=== PATIENT | female | born 1955 | race Caucasian/White ===

== ENCOUNTER → 2016-08-04 | Outpatient (CLI) | payer OTHER ==
[~2016-08-04] MED LIST: COLACE100 MG PO; COZAAR 50 MG TA50 M2 PO; CYCLOBENZAPRINE5 MG PO; DICLOFENAC SOD50 M1 PO; DOXYCYCLINE 10100 MG PO; EFFEXOR XR75 MG PO; EFFEXOR50 MG PO; EFFEXOR75 MG PO; HTN; HYDROCODONE-AP1 EAC6 PO; HYDROCODONE-APA1 TA1 PO; KEFLEX500 MG PO; KLOR-CON 1010 MEQ; NAPROSYN500 MG PO; NORCO 5-325 TA1 EACH PO; NORVASC 5 MG TAB5 MG PO; OXYCODONE HCL5 M1 PO; PERCOCET 5-3251 EACH PO; PHENERGAN 25 MG25 M1; PHENERGAN 25 MG25 M1 PO; POTASSIUM20 PO; PROMS25 WY RECTAL; SENNA8.6 MG PO; TYLENOL325 MG PO; VITAMIN D31000 UNI2 PO; VITAMIN D3400 UNIT PO; [UNRECOGNIZED DRUG - OTHER] FLUSH
== END ==
LOC: HYPER 07:01
DX: T81.89XD Other complications of procedures, not elsewhere classified, subsequent encounter (principal); E66.01 Morbid (severe) obesity due to excess calories; M19.90 Unspecified osteoarthritis, unspecified site; Z85.43 Personal history of malignant neoplasm of ovary; Z90.710 Acquired absence of both cervix and uterus; Y83.8 Other surgical procedures as the cause of abnormal reaction of the patient, or of later complication, without mention of misadventure at the time of the procedure

== ENCOUNTER 2018-09-30 08:56 | Inpatient (IN) | payer OTHER ==
[~2018-09-30] VITALS: Ht 172.7 cm; Wt 121.7 kg
[2018-09-30 08:58] VITALS: BP 101/58
[2018-09-30 09:28] LABS: ABSOLUTE NEUTROPHILS 9.1 thou/uL (1.4-8.2); BASOPHILS 0.6 % (0.0-2.0); EOSINOPHILS 1.6 % (0.0-3.0); HEMATOCRIT 44.2 % (37.0-47.0); HEMOGLOBIN 15.1 gm/dL (12.0-15.0); LYMPHOCYTES 17.8 % (24.0-44.0); MCH 32.5 pg (26.0-34.0); MCHC 34.3 g/dL (28.0-37.0); MCV 94.9 fL (80.0-100.0); MONOCYTES 8.9 % (1.0-8.0); PLATELET COUNT 373 thou/uL (150-400); POLYS 71.1 % (36.0-66.0); RBC 4.66 mil/uL (4.20-5.00); RDW 12.8 % (10.5-14.5); WBC 12.8 thou/uL (4.0-11.0)
[2018-09-30 09:47] LABS: CALCIUM 9.6 mg/dL (8.5-10.1); CREATININE 0.9 mg/dL (0.6-1.0); POTASSIUM 3.5 mmol/L (3.5-5.1)
[2018-09-30 09:53] LABS: ALBUMIN 3.3 g/dL (3.4-5.0); TOTAL BILIRUBIN 0.5 mg/dL (<0.1-1.0); TOTAL PROTEIN 8.6 g/dL (6.4-8.2)
[2018-09-30 12:10] VITALS: BP 105/60
[2018-09-30 13:19] VITALS: BP 97/47
[2018-09-30] MEDS ORDERED: NORVASC10 MG PO (15:48)
[2018-09-30] MEDS ORDERED: EFFEXOR 5050 MG/1 T1 PO (15:50)
[2018-09-30] MEDS ORDERED: NEBUMETONE PO (15:52)
[2018-09-30] MEDS ORDERED: LYRICA 50 MG50 MG PO (15:53)
[2018-09-30] MEDS ORDERED: PHENTERMINE HCL15 MG PO (15:53)
[2018-09-30] MEDS ORDERED: METFORMIN HCL500 MG PO (15:54)
--- NOTE | 2018-09-30 16:24 | NUR ---
pt arrived to unit from emergency room per cart at 1400 in stable condition. Admission hx,assessment and care plan completed.Med rec done and waiting for Dr Comer approval.Piv infiltrated and iv team replaced it. Will continue to monitor.
[2018-09-30 16:55] VITALS: BP 108/53
[2018-09-30 21:00] VITALS: BP 111/62
--- NOTE | 2018-10-01 04:06 | NUR ---
ASSESSMENT COMPLETD.PT C/O PAIN AND HEADACHE,MANAGED WITH MEDICATION.PT CONT ON IVF AND IV ABX.PT HAD TWO EPISODES OF NAUSEA,MED ADMINISTERED,EFFECTIVE.UA OBTAINED FROM PT AND SENT DOWN TO THE LAB.PT RESTING ON HER BED AT THIS TIME. CALL LIGHT WITHIN REACH.
[2018-10-01 05:16] LABS: URINE BILIRUBIN NEGATIVE (Negative); URINE BLOOD NEGATIVE (Negative); URINE CLARITY CLEAR; URINE COLOR YELLOW; URINE GLUCOSE-RANDOM* NEGATIVE (Negative); URINE KETONES NEGATIVE (Negative); URINE LEUKOCYTES-REFLEX NEGATIVE (Negative); URINE NITRITE-REFLEX NEGATIVE (Negative); URINE PROTEIN (DIPSTICK) NEGATIVE (Negative); URINE SPECIFIC GRAVITY 1.015 (1.005-1.035); URINE UROBILINOGEN 0.2 E.U./dl (0.2-1.0)
[2018-10-01 05:24] LABS: HEMATOCRIT 36.3 % (37.0-47.0); MCH 32.1 pg (26.0-34.0); MCHC 33.7 g/dL (28.0-37.0); MCV 95.3 fL (80.0-100.0); RBC 3.81 mil/uL (4.20-5.00); RDW 12.6 % (10.5-14.5); WBC 8.6 thou/uL (4.0-11.0)
[2018-10-01 05:28] LABS: CALCIUM 8.6 mg/dL (8.5-10.1); CREATININE 0.7 mg/dL (0.6-1.0); POTASSIUM 3.4 mmol/L (3.5-5.1)
[2018-10-01 05:31] LABS: HEMOGLOBIN 12.2 gm/dL (12.0-15.0)
[2018-10-01 05:56] VITALS: BP 106/59
[2018-10-01 08:27] VITALS: BP 95/56
--- NOTE | 2018-10-01 12:11 | NUR ---
ASSESSMENT-PT LIVES AT HOME WITH HER SON. PT WALKS ON HER OWN, USES A CANE OR A WALKER TO GET AROUND. PT HAS A C-PAP AT HOME BUT DOES NOT KNOW WHAT COMPANY SUPPLIES IT. PT HAS HAD CHCS IN THE PAST BUT DOES NOT WANT TO USE THEM AGAIN. PT HAS A RAMP TO ENTER THE HOME. PT'S SON WORK NIGHTS AT [employer] AND HAS [employer] AND DOES NOT DRIVE. PT DRIVES HIM TO WORK. LAUNDRY IS LOCATED IN [place] AND SON DOES IT. SON DOES MOST OF THE CLEANING ND PT DOES MOST OF THE COOKING. PT HAS MULTIPLE FRIENDS THAT LIVE CLOSE TO HER ND WILL BE ABLE TO CHECK ON HER. PT HAS A BROTHER AND FADI IN [place]. PT HAD A DRAIN PLACED TODAY. FOLLOWING TO ASSSIT WITH DC PLANNING.
--- NOTE | 2018-10-01 14:42 | NUR ---
PATIENT TRANSFERED TO [facility] AT THIS TIME. ROOM 224. REPORT GIVEN TO NURSE. PATIENTS BELONGINGS PACKED AND SENT WITH PATIENT. PT GIVEN 2:00 FLEXIRIL AND PRN IV PAIN MED. ALSO GIVEN ALL HER AM MEDS INCLUDING EXCEDRIN EXTRA STRENGTH PRN FOR HEADACHE ALSO VIT B 12 THAT SHE HAD THIS NURSE CALL DR MARTIN FOR. DILUADID IV PRN PAIN MED GIVEN BEFORE TRANSFER. SENIOR SUITES NURSE TO CALL FOR PHENEGAN. PT STATES HAS NAUSEA. VOLUNTEER TRANSFERRED PATIENT.
--- NOTE | 2018-10-01 14:59 | NUR ---
PATIENT TRANSFERRED FROM 427 TO SICU 224 AT THIS TIME, PATIENT AMBULATORY WITHOUT DEVICE, C/O PAIN AND DISCOMFORT 05/02, PATIENT RECEIVED PRN DILAUDID 0.5MG IV PUSH AT 1419 PRIOR TO TRANSFER, PATIENT C/O OF N/V WITHOUT EMESIS AT THIS TIME, PHYSICIAN DC NAUSEA MEDICATIONS PRIOR TO TRANSFER, NURSE TO CONTACT PHYSICAIN, PERSONAL BELONGINGS AND CALL LIGHT IN REACH, WILL CONTINUE TO MONITOR
--- NOTE | 2018-10-01 18:14 | NUR ---
AT 1802 RECEIVED CALL FROM LAB WITH CRITICAL LAB, BLOOD CULTURE GRAM POSITIVE COCCI, AT 1807 NURSE REPORTED CRITICAL LAB RESULT TO PHYSICIAN, NO NEW ORDERS RECEIVED, PHYSICIAN STATED WE ARE COVERED FOR THAT
[2018-10-01 18:45] VITALS: BP 119/58
--- NOTE | 2018-10-02 04:17 | NUR ---
Patient remains A&Ox4; Swallows meds whole w/o difficulty. Remains cont. B&B. Ambulates independently w/ asst of walker; gait steady. Remains on IVABT/abd. abscess; no adverse reactions noted. SL noted to L wrist; infusing/flushing w/o difficulty. Drain noted to RUQ of abd; draining red drainage w/o difficulty. Patient denies pain or discomfort, at this time. No s/s of acute distress noted. Patient in bed asleep w/ call light/desired belongings within reach. Po fluids encouraged. Will continue to monitor.
[2018-10-02 06:46] LABS: ABSOLUTE NEUTROPHILS 4.9 thou/uL (1.4-8.2); BASOPHILS 0.8 % (0.0-2.0); EOSINOPHILS 5.2 % (0.0-3.0); HEMATOCRIT 35.5 % (37.0-47.0); HEMOGLOBIN 11.9 gm/dL (12.0-15.0); LYMPHOCYTES 23.3 % (24.0-44.0); MCH 32.2 pg (26.0-34.0); MCHC 33.3 g/dL (28.0-37.0); MCV 96.4 fL (80.0-100.0); MONOCYTES 9.1 % (1.0-8.0); PLATELET COUNT 309 thou/uL (150-400); POLYS 61.6 % (36.0-66.0); RBC 3.68 mil/uL (4.20-5.00); RDW 12.6 % (10.5-14.5); WBC 7.9 thou/uL (4.0-11.0)
[2018-10-02 06:57] LABS: CALCIUM 8.5 mg/dL (8.5-10.1); CREATININE 0.7 mg/dL (0.6-1.0); POTASSIUM 4.4 mmol/L (3.5-5.1)
--- NOTE | 2018-10-02 07:10 | H ---
[facility] [address] [place] [address] HISTORY AND PHYSICAL Name: LAURA CROFT Room #: 224-P ADM IN M.R.#: [id number] Admission: 09/30/18 ������������������ Attend Phys: Marcus Comer MD Discharge: ������������������ Date of : 53 Report #: [id number] THIS REPORT FOR: //name// CC: Marcus Schroeder HISTORY OF PRESENT ILLNESS: The patient is a 63-year-old female who came to the Emergency Room with a complaint of a mass on the left upper abdominal wall that started to show up few days ago. The patient indicated that this mass was painful. The patient is known to have a history of abdominal wall abscesses and had a drain of the abscess done years ago and she did not have any problem since then. The patient stated she did not have any fever or chills. She did not have any nausea or vomiting or changes in her bowels. The patient came to the Emergency Room where she had an ultrasound that showed the presence of a fluid collection in the abdominal wall. It was planned for the patient to be admitted to the hospital for abscess of the abdominal wall with the plan for drainage of this today. PAST MEDICAL HISTORY: Significant for ovarian cancer that was diagnosed in 2007. The patient had previous history of hysterectomy and oophorectomy. The patient had 11 surgeries between 2007 and 2013 for hernia repair and repair. The patient had 3 wounds in the past that required wound VAC. The patient had a history of cholecystectomy and appendectomy, chronic back pain, osteoarthritis of the right knee, morbid obesity and hypertension. MEDICATIONS: The patient's medications were reviewed. ALLERGIES: LISINOPRIL. SOCIAL HISTORY: The patient lives with her son. She denies any history of smoking, alcohol use or drug use. FAMILY HISTORY: Noncontributory. REVIEW OF SYSTEMS: Negative besides what was mentioned above, in addition to the presence of headache. PHYSICAL EXAMINATION: VITAL SIGNS: Showed a temperature of 97.4, pulse 102, respirations 16, blood pressure 105/58. HEAD AND NECK: Unremarkable. LUNGS: Clear to auscultation. CARDIAC: S1, S2. ABDOMEN: Showed mass filling the abdominal wall on the left upper quadrant that is painful. No bowel sounds were positive. EXTREMITIES: Without any edema. [address] [address] HISTORY AND PHYSICAL Name: LAURA CROFT Room #: 224-P [facility] IN ..#: [id number] Admission: 09/30/18 ������������������ Attend Phys: Marcus Comer MD Discharge: ������������������ Date of : 53 Report #: [id number] LABORATORY DATA: The patient's lab showed white count of 12.8, hemoglobin 15.1, hematocrit 44.2, platelet count 373, neutrophils are 71%. Comprehensive metabolic panel showed sodium of 135, potassium 3.5, chloride 96, bicarbonate 30, BUN 20, creatinine 0.9 and glucose 118. AST is 12, lipase 67, alkaline phosphatase 125, ALT 20, total protein 8.6, albumin 3.3. CT of the abdomen and pelvis showed the abdominal wall soft tissue abscess within the left of the abdominal rectus muscularis and fascia measuring 4.5 x 5.5 cm, lactic acid is 0.8. Urinalysis was unremarkable. Repeated blood tests showed white count of 8.6, hemoglobin 12.2, hematocrit 36.3, platelet count 306. Basic metabolic panel showed sodium of 138, potassium 3.4, chloride 99, bicarbonate 34, anion gap of 5, BUN 18, creatinine 0.7, glucose 137. ASSESSMENT AND PLAN: 1. Abdominal wall abscess. 2. Hypertension. 3. Morbid obesity. 4. Chronic back pain. The patient was admitted to the hospital with the above-mentioned diagnoses. The patient was started on broad-spectrum antibiotics and I will start the patient on Excedrin Migraine for her headaches. The patient will be started on IV fluids. We will check patient's hemoglobin A1c. We will continue to monitor the patient. ��������������������������������������������� <ELECTRONICALLY SIGNED> ���������������������������������������� By: Marcus Comer MD ��������������������������������������������� 10/02/18 0710 [id number] Marcus Comer MD /nt
[2018-10-02 08:16] VITALS: BP 102/50
--- NOTE | 2018-10-02 10:26 | NUR ---
Assess due to RD consult received, BMI of 40.8=extreme class III obesity. Admit with abdominal wall abscess. Pt c/o HOGUE this am, but was able to relate has had intentional wt loss 100 lb by reducing added sugars, and elimating animal products beef, fish, poulty from diet. Eats eggs, cheese, milk. BG controlled. Will order own meals. Wants glucerna shakes-will order. Otherwise low nutrition risk
--- NOTE | 2018-10-02 10:42 | NUR ---
SW reviewed chart and spoke with nursing. Pt [facility] and is progressing towards goals for discharge. Plan is for pt to discharge home when medically stable. KING is following to assist as needed with discharge planning.
--- NOTE | 2018-10-02 13:32 | NUR ---
ASSUMED CARE OF PATIENT THIS MORNING. PATIENT IS ALERT WITH SOME FORGETFULNESS. SHE HAS A NEW LEFT FOREARM IV W/ FLUIDS AND ANTIBIOTICS RUNNING. PATIENT COMPLAINED OF PAIN THIS MORNING AND RECEIVED DILAUDID WITH PARTIAL PAIN RELIEF. SHE ALSO RECEIVED EXCEDRIN FOR HEADACHE. PATIENT HAS A LEFT ABDOMINAL SITE DRAIN THAT IS C/D/I AND HAS SANGUINEOUS DRAINAGE. SHE GETS UP WITH SBA AND WALKER. WILL CONTACT THE PHYSICIAN TO REQUEST SOMETHING FOR THE PATIENT TO HAVE A BOWEL MOVEMENT. PATIENT IS CURRENTLY LYING IN BED WITH CALL LIGHT WITHIN REACH. SHE CALLS OUT APPROPRIATELY FOR ASSISTANCE. WILL CONTINUE TO ASSESS PATIENT FOR PAIN.
[2018-10-02 19:38] VITALS: BP 115/63
--- NOTE | 2018-10-03 04:32 | NUR ---
Patient remains A&Ox4; Swallows meds whole w/o difficulty. Remains cont. B&B; Ambulates independently w/ steady gait. Remains on IVABT/R abd. abscess; no adverse reactions noted. Drain noted/intact to RUQ; draining red liquid w/o difficulty. ABD soft/nontender and BS+x4. LFA SL noted; infused/flushed w/o difficulty. Patient has no c/o pain or discomfort, at this time. No s/s of acute distress noted. Patient in bed asleep, w/ call light/desired belongings within reach. Po fluids encouraged. Will continue to monitor.
[2018-10-03 07:19] LABS: ABSOLUTE NEUTROPHILS 3.8 thou/uL (1.4-8.2); EOSINOPHILS 5.2 % (0.0-3.0); HEMATOCRIT 36.1 % (37.0-47.0); LYMPHOCYTES 28.1 % (24.0-44.0); MCH 32.1 pg (26.0-34.0); MCHC 33.2 g/dL (28.0-37.0); MCV 96.6 fL (80.0-100.0); MONOCYTES 9.1 % (1.0-8.0); PLATELET COUNT 334 thou/uL (150-400); POLYS 56.6 % (36.0-66.0); RBC 3.73 mil/uL (4.20-5.00); RDW 12.8 % (10.5-14.5); WBC 6.8 thou/uL (4.0-11.0)
[2018-10-03 07:35] LABS: CALCIUM 8.9 mg/dL (8.5-10.1); CREATININE 0.7 mg/dL (0.6-1.0); POTASSIUM 4.7 mmol/L (3.5-5.1)
--- NOTE | 2018-10-03 09:54 | NUR ---
ASSUMED PATIENT AND CARES AT 0715, PATIENT WOKE LYING IN BED, LAB DRAWING BLOOD AT THIS TIME, LEFT FOREARM INTACT WITH FLUIDS INFUSING, PATIENT RECEIVED PRN DILAUDID APPROX 0640, PATIENT STATES PAIN IS MUCH BETTER NOW 03/02, PAIN PRIOR WAS 05/02, PERSONAL BELONGINGS AND CALL LIGHT IN REACH, WILL CONTINUE TO MONITOR
--- NOTE | 2018-10-03 14:34 | NUR ---
SW reviewed chart and spoke with nursing. Awaiting cultures at this time. Pt has drain in place and remains on IV abx. Plan is for pt to d/c home when medically stable. KING is following to assist as needed with discharge planning.
--- NOTE | 2018-10-03 18:08 | NUR ---
ASSUMED CARE OF PATIENT AT 11;30. PT C/O PAIN, ADDRESSED WITH PAIN MEDS WHICH OFFERED PARTIAL RELIEF. PT RESTING, WILL CONTINUE TO MONITOR.
[2018-10-03 20:22] VITALS: BP 120/64
--- NOTE | 2018-10-04 05:00 | NUR ---
ASSUMED CARE OF PATIENT AT 1900. VSS. ASSESSMENT COMPLETED AT 2154 AND IS DOCUMENTED. PRN EXCEDRIN GIVEN PER PT REQUEST Q6H FOR HEADACHE WITH LITTLE RELIEF. PRN DILAUDID GIVEN Q6H [place] PT REQUEST FOR HEADACHE AND LUQ PAIN WITH SOME RELIEF. PT STATES THAT NORCO DOES NOT HELP WITH PAIN AT ALL. LEFT FA IV INFILTRATED. NEW IV STARTED BY HOLLOW HANDLE KNIFE ASSEMBLER, KARYNA, IN RIGHT CLAVICULAR REGION. IV PATENT WITH 1/2 NS WITH 20 MEQ KCL RUNNING AT 75 ML/HR AND VANCO GIVEN PER SEP WITHOUT COMPLICATION. LUQ DRAIN DRSG C/D/I WITH SANGUANIOUS DRAINAGE NOTED. DRAIN WAS FLUSHED WITH 10 ML NS AT APPROXIMATELY 2200. PT HAD A MODERATE SIZED BM EARLY THIS MORNING, BUT STATED IT WAS VERY HARD AND DIFFICULT TO PUSH OUT. PT CURRENTLY SITTING IN BED WATCHING TV IN NO ACUTE DISTRESS. CALL LIGHT WITHIN REACH. BED LOCKED AND IN LOWEST POSITION. WCTM.
[2018-10-04 07:42] VITALS: BP 137/62
[2018-10-04 08:24] LABS: HEMATOCRIT 36.3 % (37.0-47.0); HEMOGLOBIN 12.1 gm/dL (12.0-15.0); MCH 32.2 pg (26.0-34.0); MCHC 33.2 g/dL (28.0-37.0); MCV 97.1 fL (80.0-100.0); RBC 3.74 mil/uL (4.20-5.00); RDW 12.7 % (10.5-14.5); WBC 5.1 thou/uL (4.0-11.0)
[2018-10-04 08:28] LABS: CALCIUM 8.8 mg/dL (8.5-10.1); CREATININE 0.7 mg/dL (0.6-1.0); POTASSIUM 4.9 mmol/L (3.5-5.1)
--- NOTE | 2018-10-04 12:09 | NUR ---
KING reviewed chart and spoke with nursing. Awaiting culture results at this time. Pt will need to discharge home with drain in place. Discharge home is anticipated for tomorrow. KING met with pt at bedside to discuss discharge plan and possible need for HH for drain care. Pt is agreeable with having HH services. SW provided options for HH. No preference voiced for HH agency. SW confirmed pt's home address and phone number. Pt's PCP is Dr. Comer. shoe lay out planner to fax referral to [facility] for review. KING notified [facility] liaison of new referral. KING is following to assist as needed with discharge planning.
--- NOTE | 2018-10-04 12:13 | NUR ---
ASSUMED CARE OF PATIENT THIS MORNING. PATIENT IS A&OX4 W/ SOME FORGETFULNESS. SHE GETS UP AD LEONCIO. SHE HAS A LUQ ABSCESS DRAIN AND HAS SCANT OUTPUT. SHE NEEDS REINFORCEMENT WITH THE EMPTYING OF HER DRAIN UPON DISMISSAL. SHE WILL POSSIBLY BE DISCHARGED TODAY HOME WITH HOME HEALTH. PATIENT COMPLAINS OF CONTINUOUS ABDOMINAL PAIN, AND HAS RECEVIED IV PUSH DILAUDID THIS MORNING. PATIENT'S IV FLUIDS WERE DC'D AND PATIENT IS ONLY RECEIVING VANCOMYCIN Q12H. PATIENT IS CURRENTLY LYING IN BED WITH CALL LIGHT WITHIN REACH. SHE CALLS OUT APPROPRIATELY FOR ANY NEEDED ASSISTANCE.
--- NOTE | 2018-10-04 12:16 | NUR ---
DISCHARGE PLANNING. ANTICIPATED DISCHARGE TO HOME TOMORROW. HOME HEALTH SERVICES RECOMMENDED. REFERRAL FAXED TO [facility] PER PATIENT REQUEST. CALL PLACED TO [facility] LIAISON TO NOTIFY. FIDE TO REVIEW AND NOTIFY CM ONCE COMPLETE. FOLLOWING TO ASSIST WITH DC NEEDS.
[2018-10-04 15:44] VITALS: BP 121/84
[2018-10-04 15:59] VITALS: BP 121/84
--- NOTE | 2018-10-04 16:13 | NUR ---
POST FALL ASSESSMENT. PATIENT FELL WHILE STEPPING OUT OF THE SHOWER. PATIENT FELT NAUSEOUS/DIZZY WHILE GETTING OUT OF THE SHOWER AND DID NOT PULL THE CORD IN THE SHOWER. SHE SAID,"I FELT LIKE I COULD DO IT ON MY OWN". PATIENTS VITAL SIGNS WERE TAKEN, HEAD TO TOE ASSESSMENT. FALL WAS NOT WITNESSED. PATIENT IS A&OX4 AT TIME OF FALL. PATIENT HAD POST WEAKNESS ON THE LEFT SIDE (SHOULDER AND LEG) WITH SOME SORENESS. PHYSICIAN WAS NOTIFIED. ATTEMPTED TO CONTACT FRIEND, LISTED NEXT OF KIN.
[2018-10-04 17:05] VITALS: BP 142/80
--- NOTE | 2018-10-04 18:15 | NUR ---
I AGREE WITH NURSING ASSESSMENT DONE BY ANGELIKA/IZABEL.
[2018-10-04 19:55] VITALS: BP 126/74
--- NOTE | 2018-10-05 02:31 | NUR ---
Assumed care of pt at 1900. Pt alert and oriented x4. Prn pain meds administered. Drain in place. Flushed twice per shift. IV antibiotic administered. Ambulating SBA with walker and gait belt. Call light within reach. Fall precautions in place. Will continue to monitor.
[2018-10-05 07:28] VITALS: BP 127/71
[2018-10-05 07:39] LABS: HEMATOCRIT 38.3 % (37.0-47.0); HEMOGLOBIN 12.6 gm/dL (12.0-15.0); MCHC 32.9 g/dL (28.0-37.0); MCV 97.5 fL (80.0-100.0); RBC 3.93 mil/uL (4.20-5.00); RDW 12.9 % (10.5-14.5); WBC 7.1 thou/uL (4.0-11.0)
[2018-10-05 07:50] LABS: CREATININE 0.8 mg/dL (0.6-1.0); POTASSIUM 4.9 mmol/L (3.5-5.1)
[2018-10-05] MEDS ORDERED: DOXYCYCLINE 10100 MG PO (09:11)
[2018-10-05] MEDS ORDERED: VITAMIN B-12500 MCG PO (09:11)
--- NOTE | 2018-10-05 09:17 | NUR ---
ASSUMED CARE OF PATIENT THIS MORNING. PATIENT IS A&OX4. PATIENT IS UP W/ASSIST AND WALKER. FALL PRECAUTIONS ARE IN PLACE FOR PATIENT. SHE HAS YELLOW SOCKS, YELLOW WRIST BAND, AND BED ALARM ARE SET ON PATIENT. PATIENT WILL BE DISCHARGED TODAY HOME WITH HOME HEALTH. IV WILL BE REMOVED BEFORE DISMISSAL. PATIENT WILL RECEIVE HER MEDICATONS THIS MORNING AND ORAL PAIN MEDICATIONS IF NEEDED. WILL DISCUSS DISCHARGE SUMMARY WITH PATIENT. PATIENT CURRENTLY SITTING IN ROOM WITH CALL LIGHT WITHIN REACH.
[2018-10-05 09:57] VITALS: BP 127/71
--- NOTE | 2018-10-05 10:21 | NUR ---
PATIENT'S DISCHARGE INSTRUCTIONS REVIEWED WITH HER AND SHE SIGNED IN AGREEMENT. IV HAS ALREADY BEEN REMOVED. [facility] CALLED TO TAKE PATIENT TO EMERGENCY ROOM EXIT FOR DEPARTURE. PATIENT WAS TOLD THAT [facility] WAS COMING TO GET HER FOR DISMISSAL BUT PATIENT LEFT UNIT ANYWAY WITHOUT ASSISTANCE FOR WHEELCHAIR TRANSPORT.
--- NOTE | 2018-10-05 12:32 | NUR ---
DISCHARGE NOTE: SW reviewed chart and spoke with nursing and attending physician s TRAY PACKER. Pt is medically stable for discharge home today with HH services. Pt will go home with drain in place. Pt discharged home prior to SW visit. [facility] liaison onsite to meet with pt. Pt had already left. [facility] liaison took dc orders. SW faxed HH orders to Dr Comer s office for signature. Dr Comer s office to send to [facility]. No additional SW needs identified at this time, but is available to assist should needs arise.
== END 2018-10-05 10:08 | disposition home health service (06) | DRG 603 ==
LOC: ER 08:56 → 4E 12:04 → EROBS 12:04 → 4E 13:26 → ENTRNSPT 10-01 14:09 → EDTRNSPTSTS 10-01 14:16 → SICU 10-01 14:46
PROVIDERS: Emergency Medicine; Nurse Practitioner Adult Health; ADMIT Internal Medicine
PROC: 0J9830Z Drainage of Abdomen Subcutaneous Tissue and Fascia with Drainage Device, Percutaneous Approach (ICD-10-PCS; principal; 2018-10-01)
DX: L02.211 Cutaneous abscess of abdominal wall (principal); Z68.41 Body mass index [BMI] 40.0-44.9, adult; M19.90 Unspecified osteoarthritis, unspecified site; I10 Essential (primary) hypertension; F32.9 Major depressive disorder, single episode, unspecified; E66.01 Morbid (severe) obesity due to excess calories; G89.29 Other chronic pain; M54.9 Dorsalgia, unspecified; K43.2 Incisional hernia without obstruction or gangrene; K59.00 Constipation, unspecified; Z85.43 Personal history of malignant neoplasm of ovary; Z90.49 Acquired absence of other specified parts of digestive tract; Z88.6 Allergy status to analgesic agent; Z88.8 Allergy status to other drugs, medicaments and biological substances; Z90.710 Acquired absence of both cervix and uterus; Z90.721 Acquired absence of ovaries, unilateral; Z79.899 Other long term (current) drug therapy
CPT/HCPCS: 10084; 15002

== ENCOUNTER → 2018-10-15 | Outpatient (CLI) | payer OTHER ==
[~2018-10-15] MED LIST changes: +EFFEXOR 5050 MG/1 T1 PO; +LYRICA 50 MG50 MG PO; +METFORMIN HCL500 MG PO; +NEBUMETONE PO; +NORVASC10 MG PO; +PHENTERMINE HCL15 MG PO; +VITAMIN B-12500 MCG PO
== END ==
LOC: CAT 07:58
DX: L02.211 Cutaneous abscess of abdominal wall (principal); K43.9 Ventral hernia without obstruction or gangrene; N28.1 Cyst of kidney, acquired; I72.8 Aneurysm of other specified arteries; C56.9 Malignant neoplasm of unspecified ovary; Z90.710 Acquired absence of both cervix and uterus; Z90.49 Acquired absence of other specified parts of digestive tract

== ENCOUNTER 2019-01-04 07:54 | Inpatient (IN) | payer OTHER ==
[~2019-01-04] VITALS: Ht 172.7 cm; Wt 120.7 kg
[~2019-01-04 07:54] MED LIST changes: -EFFEXOR 5050 MG/1 T1 PO
[2019-01-04 08:08] VITALS: BP 120/73
[2019-01-04 08:35] LABS: HEMATOCRIT 45.3 % (37.0-47.0); HEMOGLOBIN 15.4 gm/dL (12.0-15.0); MCH 31.6 pg (26.0-34.0); MCV 93.1 fL (80.0-100.0); RBC 4.87 mil/uL (4.20-5.00); RDW 13.6 % (10.5-14.5); WBC 11.1 thou/uL (4.0-11.0)
[2019-01-04 08:42] LABS: ANION GAP 7 mmol/L (7-16); BUN 13 mg/dL (7-18); CALCIUM 9.8 mg/dL (8.5-10.1); CHLORIDE 101 mmol/L (98-107); CO2 31 mmol/L (21-32); GLUCOSE 113 mg/dL (74-106); POTASSIUM 3.9 mmol/L (3.5-5.1); SODIUM 139 mmol/L (136-145)
--- NOTE | 2019-01-04 08:47 | EKG ---
[facility] [place] [address] [place] [address] ELECTROCARDIOGRAM REPORT Name: LAURA CROFT Room #: [facility] M.R.#: [id number] ������������������ Admission: ������������������ Attend Phys: Discharge: ������������������ Date of : 53 Report #: [id number] ����������������������������������������������������������������� [id number] THIS REPORT FOR: //name// [facility] ED Test Date: 2019-01-04 Test Time: 08:36:48 Pat Name: LAURA CROFT Department: Room: Gender: F Manager Supply Chain Planning: : 1955 Requested By: Rebecca Martin Order Number: [id number] MD: Theodore Stewart Measurements Intervals [place] Rate: 66 P: 48 CT: 187 QRS: -25 QRSD: 111 T: 62 QT: 416 QTc: 436 Interpretive Statements Sinus rhythm Nonspecific T wave abnormality Compared to ECG 05/13/2016 14:55:45 T wave abnormality is less pronounced Electronically Signed On 01-04-2019 8:47:43 CDT by Theodore Stewart [email or web address] ��������������������������������������������� <ELECTRONICALLY SIGNED> ���������������������������������������� By: Theodore Stewart MD, [facility] ��������������������������������������������� 01/04/19 0847 [id number] Theodore Stewart MD, FACC /EPI
[2019-01-04 08:52] LABS: ALBUMIN 3.8 g/dL (3.4-5.0); LIPASE 66 U/L (73-393); SGOT 21 U/L (15-37); SGPT 30 U/L (30-65); TOTAL BILIRUBIN 0.6 mg/dL (<0.1-1.0); TOTAL PROTEIN 8.1 g/dL (6.4-8.2); TROPONIN-I <0.06 ng/mL (<0.06)
[2019-01-04 09:26] LABS: URINE BILIRUBIN NEGATIVE (Negative); URINE BLOOD NEGATIVE (Negative); URINE CLARITY CLEAR; URINE COLOR YELLOW; URINE GLUCOSE-RANDOM* NEGATIVE (Negative); URINE KETONES NEGATIVE (Negative); URINE LEUKOCYTES-REFLEX NEGATIVE (Negative); URINE NITRITE-REFLEX NEGATIVE (Negative); URINE PROTEIN (DIPSTICK) NEGATIVE (Negative); URINE SPECIFIC GRAVITY <= 1.005 (1.005-1.035); URINE UROBILINOGEN 0.2 E.U./dl (0.2-1.0)
[2019-01-04] MEDS ORDERED: NORCO 5-325 TA1 EAC1 PO (10:19)
[2019-01-04] MEDS ORDERED: PEPCID20 MG PO (10:19)
[2019-01-04] MEDS ORDERED: LOSARTAN-HCTZ1 EAC1 PO (10:19)
[2019-01-04] MEDS ORDERED: NABUMETONE 750750 M1 PO (10:20)
[2019-01-04 11:03] VITALS: BP 131/68
[2019-01-04 11:08] VITALS: BP 116/51
[2019-01-04 16:02] VITALS: BP 115/56
--- NOTE | 2019-01-04 19:47 | NUR ---
Late entry: PATIENT ADMITTED FROM HOME, THROUGH [facility] Loyda ADMITTED TO ROOM 455W BY ADMISSION NURSE. NURSING ASSESSMENT COMPLETED BY THIS NURSE. ADMITTED FOR BOWEL OBSTRUCTION. REPORTED TO Loyda, REPORTED HAD SOME ABDOMINAL CRAMPING YESTERDAY. AROUND 3 A.M. THIS DATE, HAD INTENSE ABDOMINAL PAIN THAT WOKE HER UP, NAUSEA BUT NO VOMITING. PATIENT HAS LONG MEDICAL HISTORY, INCLUDING OVARIAN CANCER TEN YEARS AGO. NO PREVIOUS BOWEL OBSTRUCTION, PER PATIENT TO THIS NURSE. ALERT AND ORIENTED TIMES FOUR. HAS RECEIVED FENTANYL TIMES TWO, LAST TIME AT 1800--SEE MAR FOR EXACT TIME. REQUESTING ANTI-NAUSEA MEDICATION, DR. ARELLANO PAGED TWO TIMES PREVIOUSLY, ONCE AT THIS HOUR. AWAITING RETURN PAGE.
[2019-01-04 20:30] VITALS: BP 115/60
[2019-01-05 04:00] VITALS: BP 133/62
--- NOTE | 2019-01-05 04:43 | NUR ---
PATIENT ALERT AND ORIENTED X4. REMAINED IN BED THROUGHOUT THE NIGHT. COOPERATIVE WITH CARE. IVF INFUSING W/O COMPLICATION. REMAINS NPO. C/O NAUSEA, HOWEVER, NO EMESIS. NEW ORDER FOR ZOFRAN, HOWEVER, NOT GIVEN BY THIS NURSE AT TIME OF THIS NOTE. MEDICATED WITH FENTANYL IVP X1. RESTING QUIETLY. WILL MONITOR.
[2019-01-05 05:13] LABS: ABSOLUTE NEUTROPHILS 4.1 thou/uL (1.4-8.2); BASOPHILS 0.2 % (0.0-2.0); EOSINOPHILS 2.6 % (0.0-3.0); HEMATOCRIT 38.6 % (37.0-47.0); LYMPHOCYTES 21.5 % (24.0-44.0); MCH 31.7 pg (26.0-34.0); MCHC 33.9 g/dL (28.0-37.0); MCV 93.5 fL (80.0-100.0); MONOCYTES 8.1 % (1.0-8.0); PLATELET COUNT 254 thou/uL (150-400); POLYS 67.6 % (36.0-66.0); RBC 4.13 mil/uL (4.20-5.00); WBC 6.1 thou/uL (4.0-11.0)
[2019-01-05 05:17] LABS: HEMOGLOBIN 13.1 gm/dL (12.0-15.0)
[2019-01-05 05:26] LABS: ALBUMIN 2.6 g/dL (3.4-5.0); CALCIUM 8.2 mg/dL (8.5-10.1); CREATININE 0.8 mg/dL (0.6-1.0); POTASSIUM 4.1 mmol/L (3.5-5.1); TOTAL BILIRUBIN 0.4 mg/dL (<0.1-1.0); TOTAL PROTEIN 5.9 g/dL (6.4-8.2)
[2019-01-05 08:17] VITALS: BP 119/61
[2019-01-05 15:53] VITALS: BP 145/54
--- NOTE | 2019-01-05 18:53 | NUR ---
Assumed pt care this am, headache has been noted from the nanotechnology engineering technologist pain medications given. Pain has been intermittent but with in pt's threshold, pt did not want pain medication for most of the time. Seen by Dr. Escobedo, suppository given, very small hard stools passed, flatus has been passed as well through out the shift. Diet has been changed to clear liquid as ordered by Dr. Escobedo. Ambulated promoted, pt walked the halls and back, complete bath done. No N and V noted. Seen by Dr. Ballesteros relsitor given, awaiting for pt to pass a biggrt BM, more flatus has been noted. POC followed no other issues noted during the shift./
[2019-01-05 19:44] VITALS: BP 151/78
--- NOTE | 2019-01-06 02:56 | NUR ---
patient c/o abd discomfort but declined pain meds. patient passing gas, patient has not had a bowel movement this shift. patient ambulates in the room with steady gaits. patient in bed asleep at this time no s/s of pain or discomfort. patient in bed asleep at this time breathing regular and unlaboured.
[2019-01-06 05:04] LABS: ABSOLUTE NEUTROPHILS 2.6 thou/uL (1.4-8.2); BASOPHILS 0.7 % (0.0-2.0); EOSINOPHILS 3.8 % (0.0-3.0); HEMATOCRIT 38.8 % (37.0-47.0); HEMOGLOBIN 12.8 gm/dL (12.0-15.0); LYMPHOCYTES 37.6 % (24.0-44.0); MCH 31.2 pg (26.0-34.0); MCHC 33.1 g/dL (28.0-37.0); MONOCYTES 7.7 % (1.0-8.0); PLATELET COUNT 243 thou/uL (150-400); POLYS 50.2 % (36.0-66.0); RBC 4.12 mil/uL (4.20-5.00); RDW 13.7 % (10.5-14.5); WBC 5.3 thou/uL (4.0-11.0)
[2019-01-06 05:14] LABS: CALCIUM 8.2 mg/dL (8.5-10.1); CREATININE 0.8 mg/dL (0.6-1.0); POTASSIUM 3.8 mmol/L (3.5-5.1)
[2019-01-06 07:33] VITALS: BP 142/81
[2019-01-06 12:46] VITALS: BP 151/87
--- NOTE | 2019-01-06 15:14 | NUR ---
TOWARDS POC PT A/O X4, VSS, AFEBRILE, DENIES PAIN, HAS ONE EPISODE OF NAUSEA AND VOMITING BEFORE LUNCH. PT HAD FULL LIQUID AT LUNCH. TOLERATED WELL. WILL ADVANCE TO FIBER RESTRICTED SOFT DIET FOR DINNER. PT HAD A SMALL TANNISH BM THIS PM. CHARTED. NO CONCERNS VOICED. ANTIPATING DC IN AM. WILL CONTINUE TO MONITOR.
[2019-01-06 21:10] VITALS: BP 122/56
--- NOTE | 2019-01-07 06:03 | NUR ---
Pt. rested quietly during the night when checked on during frequent rounds. No further emesis or c/o nausea. Assisted up to the bathroom with one person and her walker. Bed alarm is on.
[2019-01-07 07:30] VITALS: BP 132/62
[2019-01-07 09:31] LABS: ABSOLUTE NEUTROPHILS 2.9 thou/uL (1.4-8.2); BASOPHILS 0.8 % (0.0-2.0); EOSINOPHILS 3.5 % (0.0-3.0); HEMATOCRIT 40.2 % (37.0-47.0); HEMOGLOBIN 13.5 gm/dL (12.0-15.0); LYMPHOCYTES 31.9 % (24.0-44.0); MCH 31.2 pg (26.0-34.0); MCHC 33.4 g/dL (28.0-37.0); MCV 93.3 fL (80.0-100.0); MONOCYTES 7.1 % (1.0-8.0); PLATELET COUNT 261 thou/uL (150-400); POLYS 56.7 % (36.0-66.0); RBC 4.31 mil/uL (4.20-5.00); RDW 13.7 % (10.5-14.5); WBC 5.1 thou/uL (4.0-11.0)
[2019-01-07 09:36] LABS: CALCIUM 9.1 mg/dL (8.5-10.1); CREATININE 0.8 mg/dL (0.6-1.0); POTASSIUM 3.8 mmol/L (3.5-5.1)
--- NOTE | 2019-01-07 10:14 | NUR ---
Assess for class III extreme obesity, BMI 40.5. Pt has been working on wt loss goals and has lost 100 lb per report in over a year. Had no dietary concerns. Low nutrition risk
--- NOTE | 2019-01-07 14:03 | NUR ---
PT ADMITTED RELATED TO SBO. CM REVIEWED CHART AND SPOKE WITH CARE TEAM. CM MET WITH PT AT BEDSIDE THIS DAY. PT IS A&O X4. CM ROLE INTRODUCED. PT INDICATED SHE LIVES IN A HOUSE AND THAT HER SON IS STAYING WITH HER. PT INDICATED THERE IS A RAMP TO ENTER HER HOUSE. PT INDICATED SHE HAD BEEN USING A CANE AND A FWW TO ASSIST WITH MOBILITY PLANT CHIEF. PT INDICATED SHE HAD CHCS IN THE PAST. PT INDICATED SHE PLANS TO RETURN HOME ONCE MEDICALLY STABLE. CM TO FOLLOW INDICATED WITH DC PLANNING.
[2019-01-07 14:46] VITALS: BP 121/51
--- NOTE | 2019-01-07 20:49 | NUR ---
Assumed pt care this am, no nausea or vomiting was noted for this shift. Pt is able to ambulate the halls independently and was assessed by PT to be steady as well. Diet is well tolerated, no complaints of headaches have been verbalized as well. POC followe, progressing well towards goasl.
[2019-01-07 22:21] VITALS: BP 153/81
--- NOTE | 2019-01-08 04:15 | NUR ---
ASSUMED CARE OF PT AT 1900HRS. PT IS AOX4 AND IS UP AD LEONCIO. PT CALLS FOR HELP NEEDED. IV ACCESS WENT BAD AND PT REFUSED TO RESTART IV PENDING DC IN THE AM. NO OTHER S/S OF ACUTE DISTRESS. WILL CONTINUE TO MONITOR.
[2019-01-08 05:40] VITALS: BP 133/52
[2019-01-08] MEDS ORDERED: MIRALAX17 GM PO (06:34)
[2019-01-08 08:06] VITALS: BP 138/69
[2019-01-08 10:18] VITALS: BP 138/69
--- NOTE | 2019-01-08 10:51 | NUR ---
PT STABLE THROUGHUT MORNING. PT DISCHARGED HOME. PT LEFT UNIT VIA WHEELCAHIR TO PRIVATE VEHICLE.
--- NOTE | 2019-01-09 17:35 | H ---
[facility] [address] [place] [address] HISTORY AND PHYSICAL Name: LAURA CROFT Room #: 455-P [facility] IN M.R.#: [id number] Admission: 01/04/19 ������������������ Attend Phys: Denis Vegas MD, FAAF Discharge: 01/08/19 ������������������ Date of : 53 Report #: [id number] THIS REPORT FOR: //name// CC: Marcus Schroeder MD DATE OF SERVICE: 01/04/2019 CHIEF COMPLAINT: Abdominal pain; small-bowel obstruction. HISTORY OF PRESENT ILLNESS: The patient is a 63-year-old white female, patient of Dr. Marcus Comer, who has had multiple abdominal surgeries in the past, who has been constipated lately. She does use opiate, narcotics for chronic pain control. On the night prior to this morning Emergency Room admission, at about 03:30 in the morning, her pain became fairly severe and it awoke her from sleep. She was nauseated, but did not vomit. A friend brought her to the Emergency Department at [facility], where a CT findings done from the Emergency Department showed small-bowel obstruction and she was admitted. PAST MEDICAL HISTORY: Osteoarthritis; ovarian cancer in 2007; hysterectomy; chemotherapy; cholecystectomy; appendectomy; abdominal hernia repairs in 2008, 2009, 2010, 2011 and 2012; multiple abdominal infections; right abdominal abscess drained in 06/2015; tonsillectomy, mass removed from ovarian area in 2008, abdominal surgery in 2013, mesh removed and replaced with human tissue; hypertension; depression; sleep apnea, uses CPAP and frequent symptoms of nausea. HOME MEDICATIONS: Effexor XR 325 mg p.o. daily, [place] 5/325 one p.o. q. 6 hours p.r.n. pain, Pepcid 20 mg one p.o. b.i.d., Hyzaar 100/25 one p.o. daily, nabumetone 750 mg one p.o. b.i.d., amlodipine 10 mg p.o. daily, Lyrica 100 mg p.o. b.i.d., metformin 1000 mg p.o. b.i.d. with meals and cyclobenzaprine 5 mg 1 p.o. t.i.d. p.r.n. muscle spasms. ALLERGIES: LISINOPRIL AND MORPHINE. SOCIAL HISTORY: Nonsmoker, nondrinker. Lives at home with her son. FAMILY HISTORY: Noncontributory. REVIEW OF SYSTEMS: GENERAL: She has had nausea without vomiting. EYES: No visual changes. ENT: No problems with hearing, swallow, taste or smell. CARDIOVASCULAR: No chest pain or palpitations. [facility] [address] [place] [address] HISTORY AND PHYSICAL Name: LAURA CROFT Room #: 455-P DIS IN M.R.#: [id number] Admission: 01/04/19 ������������������ Attend Phys: Denis Vegas MD, FAAF Discharge: 01/08/19 ������������������ Date of : 53 Report #: [id number] RESPIRATORY: No difficulty breathing. GASTROINTESTINAL: Abdominal pain and nausea. GENITOURINARY: No problems urinating. MUSCULOSKELETAL: Debilitated, typically walks with a cane and has chronic pain. PSYCHIATRIC: Frustrated, not depressed. DERMATOLOGIC: No disturbing lesions or rash. Remainder of systems review is negative. PHYSICAL EXAMINATION: VITAL SIGNS: Temperature is 36.6, pulse 106, respirations 16, blood pressure 120/73 and pulse ox on 2 liters is 95%. She weighs 120.854 kilograms or 266 pounds. She has oxygen by nasal cannula. GENERAL: She is alert and conversant. HEENT: Pupils are equal, round and reactive to light and accommodation. Extraocular muscles intact. Pharynx unremarkable. NECK: Supple. COR: S1, S2. CHEST: Clear. ABDOMEN: Soft, mildly diffusely tender. Decreased bowel sounds. EXTREMITIES: Nonedematous, but large. NEUROLOGIC: She is alert and oriented x 3. No focal neurologic deficits. LABORATORY DATA: CBC: White count is 11.1, hemoglobin 15.4, hematocrit 45.3 and platelets 276,000. Serum chemistry: Sodium 139, potassium 3.9, chloride 101, CO2 of 31, anion gap 7, BUN 13, creatinine 1.0., estimated glomerular filtration rate is 56 and glucose 113. Lactic acid 1.3. Calcium 9.8. Total bilirubin 0.6, AST 21, ALT 30 and alkaline phosphatase 119. Troponin I is less than 0.06. Total protein 8.1. Albumin is 3.8. Lipase 66. Urinalysis is normal. IMAGING: CAT scan abdomen and pelvis with contrast, impression: 1. Mid small-bowel obstruction with zone of transition in the central abdomen, slightly to the left of midline, in the area of the surgical staple line and small bowel anastomosis, new since previous study of September of this year. 2. Small midline periumbilical abdominal wall hernia containing a loop of small bowel, similar since previous studies. 3. Resolution of previously seen left anterior abdominal abscess. 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 PLAN: Plan is to admit to the hospital, n.p.o. We will have a NG tube placed. [facility] [address] [address] HISTORY AND PHYSICAL Name: LAURA CROFT Room #: 455-P DIS IN M.R.#: [id number] Admission: 01/04/19 ������������������ Attend Phys: Denis Vegas MD, NAVIN Discharge: 01/08/19 ������������������ Date of : 53 Report #: [id number] General Surgery consult is placed. Track labs longitudinally, discussed walking when safe. ��������������������������������������������� <ELECTRONICALLY SIGNED> ���������������������������������������� By: Denis Vegas MD, SANJANA, FACEP ��������������������������������������������� 01/09/19 1735 1200 1255 Denis Vegas MD, SANJANA, FACEP /nt
== END 2019-01-08 12:55 | disposition home or self-care (01) | DRG 394 ==
LOC: ER 07:54 → 4W 09:58 → EROBS 09:58 → 4W 11:31 → ENTRNSPT 01-08 11:56 → EDTRNSPTSTS 01-08 11:58 → 4W 01-08 12:55
PROVIDERS: Internal Medicine; Student in an Organized Health Care Education/Training Program; ADMIT Family Medicine
DX: K43.0 Incisional hernia with obstruction, without gangrene (principal); Z68.41 Body mass index [BMI] 40.0-44.9, adult; E44.1 Mild protein-calorie malnutrition; K43.6 Other and unspecified ventral hernia with obstruction, without gangrene; M19.90 Unspecified osteoarthritis, unspecified site; I10 Essential (primary) hypertension; F32.9 Major depressive disorder, single episode, unspecified; F11.90 Opioid use, unspecified, uncomplicated; G89.29 Other chronic pain; E66.01 Morbid (severe) obesity due to excess calories; Z85.43 Personal history of malignant neoplasm of ovary; Z90.710 Acquired absence of both cervix and uterus; Z90.49 Acquired absence of other specified parts of digestive tract; Z79.899 Other long term (current) drug therapy; Z88.6 Allergy status to analgesic agent; Z88.8 Allergy status to other drugs, medicaments and biological substances; Z92.21 Personal history of antineoplastic chemotherapy
CPT/HCPCS: 10040

== ENCOUNTER 2019-02-21 05:20 | Inpatient (IN) | payer OTHER ==
[~2019-02-21] VITALS: Ht 170.2 cm; Wt 124.1 kg
--- NOTE | ~2019-02-21 | O ---
[facility] [address] [place] [address] OPERATIVE REPORT Name: LAURA CROFT Room #: 458-P [facility] IN M.R.#: [id number] Admission: 02/21/19 Attend Phys: Grabiel Schroeder MD, F Discharge: 03/02/19 Date of : 53 Report #: [id number] THIS REPORT FOR: //name// CC: KARLA Schroeder DATE OF SERVICE: 02/21/2019 SURGEON: Grabiel Schroeder MD SQL ANALYST: Rosanne Zhong. PREOPERATIVE DIAGNOSES: 1. Recurrent incisional ventral hernia. 2. Morbid obesity. 3. Hypertension. 4. History of ovarian cancer. 5. History of multiple failed incisional ventral hernia repairs. POSTOPERATIVE DIAGNOSES: 1. Recurrent incisional ventral hernia. 2. Intra-abdominal adhesions. 3. Morbid obesity. 4. Hypertension. 5. History of ovarian cancer. 6. History of multiple failed incisional ventral hernia repairs. 7. Necrotic abdominal wall. PROCEDURES: 1. Open repair of recurrent incarcerated incisional ventral hernia with mesh (____1.30 OviTex 25 cm x 25 cm). 2. Abdominal wall reconstruction. 3. Bilateral component separation (posterior transversus abdominis release). 4. Extensive lysis of adhesions ____ 180 minutes ____ abdominal wall and explantation of previously placed biologic mesh. 5. Application of ____ PREVENA topical wound VAC. ____ operation based on the extensive intra-abdominal adhesions present, length of time necessary to lyse adhesions and freed the small bowel and the patient's morbid obesity, which made the operations substantially more difficult and lengthened the amount of time necessary to complete the operation significantly. ANESTHESIA: General endotracheal anesthesia. ESTIMATED BLOOD LOSS: 250 mL. [facility] [place] [address] OPERATIVE REPORT Name: LAURA CROFT Room #: 458-P DIS IN M.R.#: [id number] Admission: 02/21/19 Attend Phys: Grabiel Schroeder MD, F Discharge: 03/02/19 Date of : 53 Report #: [id number] SPECIMENS: Necrotic abdominal wall, hernia sac, biologic mesh. COMPLICATIONS: None appreciated. INDICATIONS FOR PROCEDURE: This is a 64-year-old female patient of Dr. Karla Comer, who is known to me from previous abdominal surgery and hernia repairs. The patient has had difficulty with worsening abdominal pain that has become intolerable. She was admitted to [facility] on 12/25/2018 and was found to have a possible mid small-bowel obstruction near a previous anastomosis. She eventually recovered from this and was followed in clinic with ongoing symptoms. The patient has a history of ovarian cancer, which has been in remission for approximately 10 years. In 2008, she underwent excision of a left pelvic cystic mass with lysis of adhesions and incidental appendectomy as well as repair of an incisional ventral hernia. She then developed an abdominal wall abscess with chronic drainage in 2011 and required incision and drainage with removal of the foreign body and wound debridement. She eventually recovered from this, but was seen at [facility] in 2012 for insurance reasons where she underwent what sounds like an abdominal wall reconstruction with biologic mesh. She then developed an abscess once again postoperatively, which required extensive wound care. She later required excisional debridement for a chronic draining abdominal wound in 06/2016. She was hospitalized this past September for an abdominal wall abscess, which was effectively treated with drainage by Interventional Radiology and appropriate antibiotics. Since that time, the patient has lost approximately 110 pounds on her own with restricted diet in hopes of undergoing a hernia repair with less risk for recurrence. She does report increased flatulence and constipation in the past month, but denies nausea, vomiting, fever or chills. She presents today for open repair of her recurrent incisional ventral hernia with abdominal wall reconstruction. OPERATIVE FINDINGS: The patient had extensive intra-abdominal adhesions, which required a lysis of adhesions lasting at least 180 minutes. The small bowel anastomosis was identified and proximal to this, there appeared to be dilation of the bowel with more distally decompressed small bowel. The anastomosis was palpably patent. After freeing the entire small bowel, small bowel was run several times from the terminal ileum to the ligament of Treitz and vice versa. Small serosal defects that were identified were longitudinally closed with sutures. There were no seromuscular defects seen. The hernia itself was quite large, measuring 20 cm long x 10 cm wide. In order to close the posterior fascia and peritoneum, bilateral posterior transversus abdominis release was necessary. Inferiorly, due to the patient's significant obesity, it was difficult to close the peritoneum and while attempting to place more sutures to [address] [address] OPERATIVE REPORT Name: LAURA CROFT Room #: 458-P [facility] IN [facility].#: [id number] Admission: 02/21/19 Attend Phys: Grabiel Schroeder MD, F Discharge: 03/02/19 Date of : 53 Report #: [id number] close the opening, the opening only increased in size. As a result, I placed an [address] patch as an underlay with a 2 cm overlap around the periphery. After accomplishing this, I was able to place Phasix in the preperitoneal/posterior rectus space and ultimately closed the anterior fascia. OviTex mesh was then placed as an onlay. At the conclusion of the operation, sponge, needle, and instrument counts were correct. DESCRIPTION OF PROCEDURE IN DETAIL: After the risks, benefits, and expectations of the operation were discussed in detail with the patient, informed consent was obtained. The patient was identified in the preoperative holding area. She was given IV antibiotics as documented in the chart in line with SCIP metrics. The patient was then taken to the operating room and she was placed in the supine position. SCDs were placed on the patient's bilateral lower extremities and pneumatic compression was initiated. The patient was given IV sedation and she was intubated without incident. A Thompson catheter was placed. The patient's abdomen was then prepped and draped in the standard sterile fashion. A time-out was performed to identify the correct patient and procedure. A sharp #10 blade scalpel was used to make a vertical midline incision through the previous incision. A dissection was carried down to the hernia sac. The hernia sac was then opened along the length of the incision. Dissection was carried back to fascia on each side. Marly clamps were placed on the fascia. These were used to help dissect the small bowel off of the anterior abdominal wall. The incision was opened further inferiorly down to an area where hernia was felt to no longer be present. Extensive lysis of adhesions was undertaken next. The small bowel was dissected free of both interloop adhesions and adhesions to the anterior abdominal wall. The previously resected small bowel with anastomosis was identified and there appeared to be chronic dilation of the more proximal bowel with more distally decompressed bowel. Extensive lysis of adhesions was necessary and the small bowel was run several times. While doing so, small serosal defects were identified and closed longitudinally to ultimately close the defect transversely with minimal narrowing of the bowel. The rectus sheath was then opened. Posterior rectus fascia was dissected free with the overlying rectus abdominis muscle being dissected off of the fascia. The insertion of the transversus abdominis fascia was identified and this area was opened with electrocautery along the length of the incision bilaterally. This was necessary as the posterior fascia was not able to be approximated in the midline without doing so to decrease the tension on the closure. Ultimately, I was able to approximate the posterior fascia with a running looped #1 PDS suture. The peritoneum inferiorly was thin and friable and while attempting to close smaller defect made by the needle holes, the defect continued to enlarge until it was approximately 5-6 cm in diameter. At this point, I elected to place a Ventralex ST mesh patch with the separate coated [facility] [address] [place] [address] OPERATIVE REPORT Name: LAURA CROFT Room #: 458-P DIS IN [facility].#: [id number] Admission: 02/21/19 Attend Phys: Grabiel Schroeder MD, F Discharge: 03/02/19 Date of : 53 Report #: [id number] side facing the bowel. Mesh was secured to the peritoneum with a running 0 PDS suture. Care was taken to ensure that bowel was not creeping up alongside the mesh. After doing so, the posterior layer had been completely approximated. The defect had been measured. Phasix mesh was then cut to size and placed within the space. The mesh was tailored while placing it to fit the space. The mesh was secured to the underlying tissue with interrupted 2-0 PDS sutures around the periphery of the mesh to affix it and prevent migration. Interrupted sutures were also placed in various locations to prevent rippling of the mesh. A 30 mL of Tisseel was applied to the Phasix, which helped to further affix the mesh to the underlying tissue. The pores of the mesh allowed for the Tisseel to reach the posterior layer. The anterior fascia was then closed over the top of the mesh with a running looped #1 PDS suture. The subcutaneous tissue overlying the anterior fascia was dissected off of the fascia with electrocautery. OviTex mesh was then placed over the closure and additional sutures were placed in similar fashion. A 30 mL of Tisseel was used to secure the mesh to the underlying tissue while placing the sutures. 19-German drains were placed x 2 and brought out through stab wounds in the lateral abdomen. The drains were secured to the skin with 2-0 nylon sutures. The subdermal tissue was then approximated with interrupted 3-0 Vicryl sutures. [place] were used to close the skin. The patient tolerated the procedure well. She was awakened, extubated, and taken to recovery room in stable condition with no apparent intraoperative complications. By: [id number] Grabiel Schroeder MD, FACS /nt
[~2019-02-21 05:20] MED LIST changes: +FLUTICASONE PRO16 GM NASAL; +LOSARTAN-HCTZ1 EAC1 PO; +MIRALAX17 GM PO; +NABUMETONE 750750 M1 PO; +NORCO 5-325 TA1 EAC1 PO; +PEPCID20 MG PO
[2019-02-21 06:54] VITALS: BP 106/55
[2019-02-21 06:59] LABS: HEMATOCRIT 40.9 % (37.0-47.0); HEMOGLOBIN 13.7 gm/dL (12.0-15.0)
[2019-02-21 07:29] LABS: CALCIUM 8.8 mg/dL (8.5-10.1); CREATININE 0.8 mg/dL (0.6-1.0); POTASSIUM 3.4 mmol/L (3.5-5.1)
--- NOTE | 2019-02-21 08:04 | NUR ---
CONSULTED TO PLACE A PICC PRE OP FOR ACCESS AND POSSIBLE IV ANTIBIOTICS AND POSSIBLE TPN. ORDER AND CONSENT NOTED. THE PROCEDURE WELL BENIFITS AND RISK FOR DVT AND INFECTION DISCUSSED AND SHE VERBALIZED UNDERSTANDING. THE RUE BASILIC WAS WIDLEY PATENT. A #4F DOUBLE LUMEN POWER PICC WAS PLACED PER HOSPITAL POLICY AFTER A BEDSIDE TIMEOUT WAS COMPLETE. PICC WAS TRIMMED TO 49CM AND ADVANCED WITHOUT DIFFICULTY. A STAT CHEST XRAY WAS ORDERED TO CONFIRM PLACEMENT
[2019-02-21 08:11] LABS: RBC 4.36 mil/uL (4.20-5.00); WBC 6.2 thou/uL (4.0-11.0)
[2019-02-21 08:12] LABS: MCH 31.6 pg (26.0-34.0); MCHC 33.2 % (28.0-37.0); MCV 95.1 fL (80.0-100.0); RDW 13.5 % (10.5-14.5)
[2019-02-21 16:38] LABS: HEMATOCRIT 42.9 % (37.0-47.0); HEMOGLOBIN 14.1 gm/dL (12.0-15.0); MCH 31.5 pg (26.0-34.0); MCHC 32.8 g/dL (28.0-37.0); MCV 95.9 fL (80.0-100.0); RBC 4.48 mil/uL (4.20-5.00); RDW 13.8 % (10.5-14.5); WBC 14.3 thou/uL (4.0-11.0)
[2019-02-21 16:45] LABS: CALCIUM 8.2 mg/dL (8.5-10.1); CREATININE 1.3 mg/dL (0.6-1.0); POTASSIUM 3.5 mmol/L (3.5-5.1)
--- NOTE | 2019-02-21 23:16 | NUR ---
PT ARRIVED FROM TO ICU AT 1924 ACCOMPANIED BY PACU STAFF. PT DROWSY C/O ABDOMINAL PAIN AND CONSTANTLY MOANING AND HOLDING ABDOMEN. NEOSYNEPHRINE GTT INFUSING AT TIME OF ARRIVAL. PAT GTT TITRATED DOWN PER ORDER. EPIDURAL PAIN PUMP CHANGED PER ORDER. AIDS COUNSELOR PUMP STARTED PER SURGEON ORDERS. PT ON 4 L NC, TOLERATING WELL. TITRATED TO 6 L DUE TO LOW O2 SAT. PT IS CURRENTLY RESTING. PAIN HAS IMPROVED PER PT. SHE OG WITH MOD AMOUNT OF DRAINAGE. WILL CONTINUE TO MONITOR. PT MAKING PROGRESS TOWARDS GOALS.
[2019-02-22] VITALS (15 sets, daily range): BP systolic 90–116; BP diastolic 48–68
[2019-02-22 04:54] LABS: CALCIUM 8.1 mg/dL (8.5-10.1); POTASSIUM 3.9 mmol/L (3.5-5.1)
[2019-02-22 04:58] LABS: ABSOLUTE NEUTROPHILS 9.7 thou/uL (1.4-8.2); BASOPHILS 0.2 % (0.0-2.0); HEMATOCRIT 35.4 % (37.0-47.0); LYMPHOCYTES 5.9 % (24.0-44.0); MCH 31.5 pg (26.0-34.0); MCHC 32.9 g/dL (28.0-37.0); MCV 95.9 fL (80.0-100.0); MONOCYTES 8.3 % (1.0-8.0); POLYS 85.6 % (36.0-66.0); RBC 3.69 mil/uL (4.20-5.00); RDW 13.8 % (10.5-14.5); WBC 11.4 thou/uL (4.0-11.0)
[2019-02-22 04:59] LABS: HEMOGLOBIN 11.6 gm/dL (12.0-15.0); PLATELET COUNT 243 thou/uL (150-400)
--- NOTE | 2019-02-22 14:25 | NUR ---
ASSUMED CARE OF PT AT APPROX 0700. PT IS DROWSY BUT EASILY ARROUSED. ORIENTED X3 BUT DOES SEEM TO BE FORGETFUL AT TIMES BUT EASILY REORIENTED. NAD NOTED AT THIS TIME. VSS. BP MAINTAING WITH IV PRESSORS. ASSESSMENT CHARTED. PT ABLE TO MAINTAIN 02 SAT >90 ON NC SETTINGS. PT HAS ALLISON TO DD. REFUSES TURNING CURRENTLY. RIVETING MACHINE OPERATOR AND EPIDURAL PUMP ARE GOING AND PT IS DENYING PAIN CONTROL. PT COMPLAINS OF 10/[address] SWEET RIVETING MACHINE OPERATOR PUMP AND ORDER NEW PRN IVP PAIN MEDICATION. ADMINISTERED REQUESTED WITH BETTER OUTCOME OF PAIN CONTROL PER PT. DENIES SOA. EVEN NON LABORED BREATHING. ABD DRESSING C/D/I. WILL CONTINUE TO MONITOR.
--- NOTE | 2019-02-22 17:18 | NUR ---
CM ASSESSMENT: CASE OPENED FOR DC PLANNING. CLINICAL INFO REVIEWED. PT ADMIT FOR VENTRAL HERNIA REPAIR AND IS POD #1. HYPOTENSIVE IN AND POST OR REQUIRING PAT GTT. PT HAD EPIDURAL AND STORY TELLER FOR PAIN. NGT. SLEEPING AT PRESENT. RECENT ADMIT IN DECEMBER 2018. LIVES IN HOUSE ALONE, USES CANE AND WALKER AND USED [facility] IN PAST. NO W/E DC PLANNED. WILL NEED PT/OT EVALS AND WILL COORDINATE DC NEEDS BASED ON LEVEL OF REHAB NEEDED.
[2019-02-23] VITALS (21 sets, daily range): BP systolic 88–143; BP diastolic 57–84
[2019-02-23 05:20] LABS: HEMATOCRIT 33.1 % (37.0-47.0); HEMOGLOBIN 11.4 gm/dL (12.0-15.0); MCH 32.9 pg (26.0-34.0); MCHC 34.4 g/dL (28.0-37.0); MCV 95.9 fL (80.0-100.0); RBC 3.45 mil/uL (4.20-5.00); RDW 14.2 % (10.5-14.5); WBC 10.5 thou/uL (4.0-11.0)
[2019-02-23 05:28] LABS: CALCIUM 8.4 mg/dL (8.5-10.1); CREATININE 0.7 mg/dL (0.6-1.0); POTASSIUM 3.6 mmol/L (3.5-5.1)
--- NOTE | 2019-02-23 05:43 | NUR ---
PT RESTING IN BED. DOES AROUSE EASILY AND ASKS FREQUENTLY FOR PAIN MEDICATION. PT REMAINS ON PAT GTT. EPIDURAL IN TACT. PT CONTINUES WITH MAINTENANCE IVFS. PT ON 6L O2 PER NC. ST ON MONITOR. NG IN PLACE TO LIS BUT NO REAL OUTPUT.
--- NOTE | 2019-02-23 17:38 | NUR ---
ASSUMED CARE OF PT AT APPROX 0700. PT IS ALERT AND ORIENTED TO SELF, PLACE AND SITUATION. ABLE TO MAINTAIN 02 SAT >90 ON NC SETTINGS. PT IS SLEEPING ONLY WAKING FOR REQUEST OF PAIN MEDS. PT INCREASINGLY CONFUSED UPON WAKING DAY CONTINUES. STATING SHE DOES NOT KNOW HER NAME AND IS UNSURE WHAT A FEVER IS. VSS. NAD NOTED. PAIN MEDS ADMINISTERED PRN REQUESTED WITH NOTED RELIEF. ASSESSMENT CHARTED. POSSIBLE TRANSFER OFF UNIT TOMORROW. WILL CONTINUE TO MONITOR.
[2019-02-24] VITALS (24 sets, daily range): BP systolic 101–146; BP diastolic 65–97
[2019-02-24 05:12] LABS: ABSOLUTE NEUTROPHILS 8.1 thou/uL (1.4-8.2); BASOPHILS 0.4 % (0.0-2.0); EOSINOPHILS 2.7 % (0.0-3.0); HEMATOCRIT 30.9 % (37.0-47.0); HEMOGLOBIN 10.3 gm/dL (12.0-15.0); LYMPHOCYTES 9.1 % (24.0-44.0); MCH 32.2 pg (26.0-34.0); MCHC 33.5 g/dL (28.0-37.0); MCV 96.1 fL (80.0-100.0); MONOCYTES 6.5 % (1.0-8.0); PLATELET COUNT 206 thou/uL (150-400); POLYS 81.3 % (36.0-66.0); RBC 3.22 mil/uL (4.20-5.00); RDW 14.2 % (10.5-14.5)
[2019-02-24 05:19] LABS: CALCIUM 7.6 mg/dL (8.5-10.1); CREATININE 0.5 mg/dL (0.6-1.0); POTASSIUM 3.2 mmol/L (3.5-5.1)
[2019-02-25] VITALS (10 sets, daily range): BP systolic 122–151; BP diastolic 60–78
[2019-02-25 04:49] LABS: ABSOLUTE NEUTROPHILS 6.6 thou/uL (1.4-8.2); BASOPHILS 0.7 % (0.0-2.0); EOSINOPHILS 2.9 % (0.0-3.0); HEMATOCRIT 29.6 % (37.0-47.0); LYMPHOCYTES 11.2 % (24.0-44.0); MCH 32.3 pg (26.0-34.0); MCHC 33.9 g/dL (28.0-37.0); MCV 95.4 fL (80.0-100.0); MONOCYTES 9.1 % (1.0-8.0); PLATELET COUNT 239 thou/uL (150-400); POLYS 76.1 % (36.0-66.0); RBC 3.11 mil/uL (4.20-5.00); RDW 13.7 % (10.5-14.5); WBC 8.7 thou/uL (4.0-11.0)
[2019-02-25 04:57] LABS: CALCIUM 7.7 mg/dL (8.5-10.1); CREATININE 0.6 mg/dL (0.6-1.0)
[2019-02-25 05:11] LABS: POTASSIUM 5.3 mmol/L (3.5-5.1)
--- NOTE | 2019-02-25 06:08 | NUR ---
END OF SHIFT NOTE ASSUMED CARE AT APPROX 1900 ON 02/24. PT WAS SLEEPING BUT AROUSABLE UPON ARRIVAL. UPON MY ASSESSMENT PT COMPLAINING OF ABDOMEN PAIN, TREATED WITH PRN HYDROMORPHONE. VSS, AFEBRILE THROUGHOUT MY SHIFT. CHG WIPE BATH WAS GIVEN. EPIDURAL IN PLACE, NO MEDICATIONS RUNNING THROUGH IT. HORACE DRAINS AND PREVENA MONITORED THROUGHOUT THE NIGHT. PT WITHOUT FALLS. BED ALARMS ON. PT RESTING COMFRTABLY.
--- NOTE | 2019-02-25 15:39 | NUR ---
FOLLOWING [facility] DC PLANNING. CLINICAL INFO REVIEWED. PT TRANSFERRED OUT OF ICU TO 42 RM 458 TODAY. PT IS POD #4 VENTRAL HERNIA REPAIR COMPLICATED BY LOW BP REQUIRING PRESSORS. PAIN MANAGEMENT WITH EPIDURAL AND BACK WEDGER. BACK WEDGER OFF AND PLAN FOR EPIDURAL REMOVAL. PASSING FLATUS AND NG OUT AND CLEAR LIQUID DIET ORDERED TODAY. WORKED WITH PT AMBULATED 200 FT. WITH O2 4 LITERS NC AND WALKER. RECOMMENDATION FOR HOME WITH HOME HEALTH. APPEARS HAS USED [facility] IN PAST AND [facility] RECEIVED REFERRAL FROM DR. UREÑA'S OFFICE. UPDATE GIVEN TO 4W RM AND MSN [facility].
--- NOTE | 2019-02-25 16:06 | PATH ---
[facility] [address] [place] [address] PATHOLOGY RPT PROCEDURE Name: LAURA CROFT Room #: 458-P ADM IN M.R.#: [id number] Admission: 02/21/19 Date of : 53 Discharge: Report #: [id number] Path Case #: [id number] [facility] Accession Number: [id number] . 01 Material submitted: . hernia - HERNIA SAC . 01 Clinical history: . Recurrent ventral hernia . 02 Diagnosis: Hernia sac, repair: - Consisted fibrovascular connective tissue, compatible with a hernia sac. (IUV:cell plasterer; 02/25/2019) MBR/02/25/2019 . 02 Electronically signed: . Lavern Gorman MD, Pathologist NPI- [id number] . 01 Gross description: . The specimen is received in formalin, labeled "Laura Croft, hernia sac and mesh". Received is a segment of fibromembranous and fibroadipose tissue with attached mesh measuring 21.2 x 5.0 x 1.9 cm in greatest dimensions. No distinct nodules or lesions are noted grossly. The specimen is submitted representatively in cassette A1. (CAA; 02/22/2019) QAC/QAC . 02 Pathologist provided ICD-10: K43.9 . 02 CPT . 146947 Specimen Comment: A courtesy copy of this report has been sent to Specimen Comment: [phone], . Specimen Comment: Report sent to and Performed at: [address], [place], [place] [id number] MD Gokul Rodríguez MD Phone: [phone] Performed at: [address] [id number] MD Lavern Gorman MD Phone: [phone]
--- NOTE | 2019-02-25 16:57 | NUR ---
Transferred to the floor from ICU today. A+Ox4. On 02 at 4lpm via nasal cannula. With PICC line at R Upper arm- intact and flushing well. Due medications given as prescribed. Assisted in ADLs. With HORACE drain at R and L- output measured and recorded. With SAUMYA dressing to abdominal wound. Vital signs stable. With michaud catheter in place-draining well- output measured and recorded accordingly. Pt on clear liquids- tolerating popsicles and apple juice well. Epidural catheter and NG removed at ICU prior to transfer. Pt had OT/PT after arriving in the [place]- tolerated well. On blood sugar monitoring- on sliding scale. D5 1/2NS infusing well at 80cc/hr via PICC line. Pt complained of pain, due PRN pain medications given as prescribed. Pt able to pass gas- Dr Aware as per ICU staff. Pt with due TPN and lipids to start at 10am as per ICU staff, pt got transferred past 11am, no TPN and lipids available yet, had to request for a filter for PN thus started late; called pharmacy re: administration and compatibilty to other fluids of TPN- TPN, lipids, IVF restarted and administered thru PICC line.
[2019-02-26 07:20] LABS: BASOPHILS 0.5 % (0.0-2.0); HEMATOCRIT 30.7 % (37.0-47.0); HEMOGLOBIN 10.3 gm/dL (12.0-15.0); LYMPHOCYTES 19.3 % (24.0-44.0); MCH 32.2 pg (26.0-34.0); MCHC 33.6 g/dL (28.0-37.0); MCV 95.8 fL (80.0-100.0); MONOCYTES 10.4 % (1.0-8.0); PLATELET COUNT 285 thou/uL (150-400); POLYS 65.8 % (36.0-66.0); RDW 13.6 % (10.5-14.5); WBC 7.5 thou/uL (4.0-11.0)
[2019-02-26 07:25] LABS: CALCIUM 8.5 mg/dL (8.5-10.1); CREATININE 0.5 mg/dL (0.6-1.0); POTASSIUM 3.6 mmol/L (3.5-5.1)
--- NOTE | 2019-02-26 07:38 | NUR ---
Assumed pt care at 1900. Pt A/OX4. C/o abd pain LOP 8/10 medicated per EMAR with some relief reported. Also did c/o lower back pain,requested for topical pain med, notified order obtained for Voltaren gel Q6 PRN and applied as ordered. PPN/Lipids infusing via RUE PICC line without problems. Pt is on fall precautions. Will continue to monitor pt.
[2019-02-26 08:00] VITALS: BP 150/96
[2019-02-26 15:00] VITALS: BP 131/69
--- NOTE | 2019-02-26 17:24 | NUR ---
REceived awake on bed. Due medications given as prescribed. A+Ox4. With PICC line at R upper arm- intact and flushing well. With michaud in place- draining well, output measured and recorded accordingly. With mid-abdominal surgical wound connected to wound vac- intact. With HORACE drain at R and L- output measured and recorded accordingly. Complained of pain- due PRN pain meds given as prescribed. Pt seen by Dr Comer and Dr Schroeder today- pain meds modified. Michaud removed as ordered, pt able to pass urine afterwards. Pt opened bowels today- Dr Schroeder aware, diet advanced to full liquids- pt aware. Pt seen by PT today, able to ambulate in hallway, refused to have OT session today.
[2019-02-26 20:51] VITALS: BP 136/75
--- NOTE | 2019-02-27 03:26 | NUR ---
Assumed pt care at 1900. A/OX4,VSS.Up with SBA to BR.C/Oabd pain and left shoulder pain medicated w/Morphine with partial relief reported declined taking Hydrocodone. No c/o N/V so far. Prevena dressing C/D/I on midline abd insicion with 2 HORACE drains draining sanguineous drainage. PICC line patent with PPN infusing. Fall precautions in place. Pt resting quietly with eyes closed CPAP in place no distress noted,will continue to monitor pt.
[2019-02-27 06:04] LABS: HEMATOCRIT 31.3 % (37.0-47.0); HEMOGLOBIN 10.3 gm/dL (12.0-15.0); MCH 31.3 pg (26.0-34.0); MCHC 32.8 g/dL (28.0-37.0); MCV 95.5 fL (80.0-100.0); PLATELET COUNT 287 thou/uL (150-400); RBC 3.27 mil/uL (4.20-5.00); RDW 13.9 % (10.5-14.5); WBC 7.1 thou/uL (4.0-11.0)
[2019-02-27 06:12] LABS: CREATININE 0.6 mg/dL (0.6-1.0); POTASSIUM 3.8 mmol/L (3.5-5.1)
[2019-02-27 07:18] VITALS: BP 154/55
[2019-02-27 08:29] LABS: NUCLEATED RBCS 1 /100WBC; PLATELET ESTIMATE NORMAL
[2019-02-27 11:30] LABS: URINE BILIRUBIN NEGATIVE (Negative); URINE BLOOD TRACE (Negative); URINE CLARITY CLOUDY; URINE COLOR YELLOW; URINE GLUCOSE-RANDOM* NEGATIVE (Negative); URINE KETONES NEGATIVE (Negative); URINE LEUKOCYTES-REFLEX 3+ (Negative); URINE NITRITE-REFLEX NEGATIVE (Negative); URINE PROTEIN (DIPSTICK) NEGATIVE (Negative); URINE SPECIFIC GRAVITY 1.015 (1.005-1.035)
[2019-02-27 11:41] LABS: SQUAMOUS 0-3 Few /LPF (0-3)
[2019-02-27 11:42] LABS: BACTERIA-REFLEX >30 Many /HPF (None Seen); CASTS None Seen /LPF (None Seen); CRYSTALS None Seen /LPF (None Seen); URINE RBC 0-2 Rare /HPF (0-2); URINE WBC-REFLEX >25 Many /HPF (0-5)
--- NOTE | 2019-02-27 13:43 | NUR ---
TOWARDS POC PT A/O X4, VSS, AFEBRLE. PAIN MANAGED BY MEDS. PROVENA WOUND DRESSING C/D/I. X2 HORACE DRAIN WITH MODERATE OUTPUT. NO CONCERNS VOICED, WILL CONTINUE TO MONITOR.
[2019-02-27 14:46] VITALS: BP 144/52
[2019-02-27 21:26] VITALS: BP 141/70
[2019-02-28 05:18] VITALS: BP 153/50
[2019-02-28 07:20] VITALS: BP 119/60
--- NOTE | 2019-02-28 08:04 | NUR ---
Assumed pt care at 1900. Pt A/OX4,VSS.Up with SBA/RW to BR without problems,passing gas no BM this shift. Medicated for abd pain with Oxy/Morphine with partial relief reported.Stan HORACE drains patent with 50cc out for the night, Prevena dsg in place midline abd C/D/I. Resting quietly with no distress noted.
[2019-02-28 13:25] VITALS: BP 117/57
--- NOTE | 2019-02-28 14:24 | NUR ---
CM FOLLOWED UP WITH PT AND SHE INDICATED THAT [facility] HAD CONTACTED HER REGARDING HH SERVICES. SHE INDICATED SHE WANTED TO USED THEM UPON DC. REFERRAL TO SENT TO THEM FOR POSSIBLE DC HOME TOMORROW. PT IS ALSO STILL ON O2. CM TO FOLLOW AND ASSIST WITH DC NEEDS.
--- NOTE | 2019-02-28 14:35 | NUR ---
DISCHARGE PLANNING. DISCHARGE PLANNED TO HOME FOR TOMORROW. HOME HEALTH RECOMMENDED AT DISCHARGE. PATIENT REFERRAL FAXED TO [facility]. CALL PLACED TO [facility] TO NOTIFY. VERBAL REFERRL GIVEN TO LAYLA TRIPP INTAKE LIAISON. ACCEPTING OF PATIENT AT DISCHARGE. START OF SERVICES PLANNED FOR MONDAY. WILL FORWARD DISCHARGE/HH ORDERS ONCE AVAILABLE. UNIT SW AWARE. FOLLOWING.
[2019-02-28 20:35] VITALS: BP 108/69
--- NOTE | 2019-02-28 20:48 | NUR ---
ASSUMED CARE OF PATIENT AT APPROX 0700. PT IS LAERT AND ORIENTED X4. DENIES SOA. EVEN NON LABORED BREATHING AND ABLE TO MAINTAIN 02 SAT <90 ON 1L NC. ASSESSMENT CHARTED. NAD NOTED WITH PATIENT. PT DOES COMPLAIN OF PAIN. EDUCATED ON IMPORTANCE OF KEEPING UP WITH PAIN MEDS AND THE IMPORTANCE OF GETTING STARTED ON PO PAIN MEDICATIONS. PT DOES NOT SEEM VERY WILLING TO TRY SHE JUST WANTS THE IV PAIN MEDICATION FIRST. WORKED OUT PAIN MED SCHEDULE THAT WILL INCORPORATE BOTH IV AND PO MEDICATIONS TO START TRANSITIONA ND PT IS WILLING TO TRY. MADE NOC NURSE AWARE WELL. PT NEEDS LOTS OF ENCOURAGEMENT TO GET UP OUT OF BED AND TRY TO WALK, ALTHOUGH DOES WORK WELL WITH PT/OT. MAKING SLOW PROGRESS TOWARDS GOALS.
[2019-03-01 06:29] LABS: HEMATOCRIT 29.5 % (37.0-47.0); HEMOGLOBIN 9.9 gm/dL (12.0-15.0); MCHC 33.4 g/dL (28.0-37.0); MCV 95.8 fL (80.0-100.0); RBC 3.08 mil/uL (4.20-5.00); RDW 13.8 % (10.5-14.5); WBC 6.9 thou/uL (4.0-11.0)
[2019-03-01 06:42] LABS: PLATELET COUNT 375 thou/uL (150-400)
[2019-03-01 06:45] LABS: ALBUMIN 2.2 g/dL (3.4-5.0); CALCIUM 8.7 mg/dL (8.5-10.1); CREATININE 0.7 mg/dL (0.6-1.0); POTASSIUM 4.3 mmol/L (3.5-5.1); TOTAL BILIRUBIN 0.3 mg/dL (<0.1-1.0); TOTAL PROTEIN 5.9 g/dL (6.4-8.2)
[2019-03-01 07:08] LABS: ABSOLUTE NEUTROPHILS 3.7 thou/uL (1.4-8.2); PLATELET ESTIMATE NORMAL
--- NOTE | 2019-03-01 07:36 | NUR ---
Assumed care at 1900. A/OX4,VSS.Pt is up with SBA/RW. Right OHRACE drain discontinued at 2100 pt tolerated procedure well,and pressure dsg applied. Pain meds given around the clock as ordered with some relief reported. Prevena dsg in place C/D/I,HORACE drain on the LLQ patent with sanguineuos drainage 105cc for the night. Fall safety reinforced. Nocturnal desat study done;pt requested CPAP to be taken off at 0330 since it was beeping desating below 85% and preferred to use O2 instead with sats over 95% @ 2L/NC,RT notified regarding it.
[2019-03-01 08:04] VITALS: BP 145/57
--- NOTE | 2019-03-01 09:32 | NUR ---
Nutrition: Seen for follow up. S/p open ventral hernia repair 02/21. Was NPO x 4 days from 02/21-02/25 and received PPN for a few days starting 02/25. Has gradually progressed through all diet stages now. Clear liquids 02/25, full liquids 02/26, and regular starting 02/27. Pt averaged 70% of meals immediately on first day. Reports this AM that transition back to solid po and eating are going really well so far. Possible d/c to home with C today per notes. Last BM 02/26, nearly 3 days ago. Pt reports planning to talk to doctor today about getting back on bowel regimen. Working on good protein intake this AM with egg entree. No extra nutrition needs voiced at this time. Changing to low nutrition risk.
[2019-03-01] MEDS ORDERED: PERCOCET 7.5-31 EACH PO (11:34)
[2019-03-01 13:39] VITALS: BP 145/57
--- NOTE | 2019-03-01 14:47 | NUR ---
PHYSICIAN INDICATED THAT PT IS NOW ANTICPATED TO DC HOME Monday03/02/19. CM NOTIFIED [facility] AND THEY HAVE CHANGED SOC TO MONDAY. ORDERS WILL NEED TO BE FAXED TO . AWAITING TO SEE IF PT NEEDS HOME O2 UPON DC. IF PT QUALIFIES CONTACT [facility] AT FAX ORDER TO .
[2019-03-01 15:01] VITALS: BP 98/67
[2019-03-01 15:05] VITALS: BP 113/53
[2019-03-01 15:08] VITALS: BP 107/49
[2019-03-01 19:27] VITALS: BP 133/66
--- NOTE | 2019-03-01 19:49 | NUR ---
Assumed pt care this am, pain is managed with medications. Pt agrees she needs to be weaned off morphine gradually. 50cc removed from daniel drain on the left, dressing dry and intact refused dressing change today. Seen by Dr. Archibald, nocturnal desat study to be done tonight then the ambulation oxymetry study done tomorrow as per RT. Orthostatic BP to be done and monitored, pt needs to be out of the bed during meals and up on her chair. Wound dressing can be removed as per surgery, pt refused. Still awaiting results of the UA culture. PICC line patent by positional. POC followed vs stable no signs of distrress or verbalizations have been noted.
--- NOTE | 2019-03-02 03:01 | NUR ---
ASSUMED CARE AROUND 190. AXOX4. PAIN MANAGEMENT CHANGED PER 'S ORDER. PREVENA REMOVED PER ALEJANDRO ARSHAD'S ORDER. ABD DRESSING APPLIED. LETICIA INTACT. NO S/S ACUTE DISTRESS NOTED OR REPORTED AT THIS TIME. WILL CONT TO MONITOR FOR ANY CHANGES IN CONDITION.
[2019-03-02 04:36] VITALS: BP 123/68
[2019-03-02 04:44] VITALS: BP 110/64
[2019-03-02 04:48] VITALS: BP 103/78
[2019-03-02 04:49] LABS: HEMATOCRIT 28.8 % (37.0-47.0); HEMOGLOBIN 9.6 gm/dL (12.0-15.0); MCH 31.7 pg (26.0-34.0); MCHC 33.4 g/dL (28.0-37.0); MCV 95.1 fL (80.0-100.0); PLATELET COUNT 380 thou/uL (150-400); RBC 3.03 mil/uL (4.20-5.00); RDW 13.8 % (10.5-14.5)
[2019-03-02 05:02] LABS: CALCIUM 8.7 mg/dL (8.5-10.1); CREATININE 0.6 mg/dL (0.6-1.0); POTASSIUM 3.9 mmol/L (3.5-5.1)
[2019-03-02 06:03] LABS: ABSOLUTE NEUTROPHILS 5.4 thou/uL (1.4-8.2); METAMYELOCYTES 2 %
[2019-03-02 08:23] VITALS: BP 125/69
[2019-03-02] MEDS ORDERED: DILAUDID 2 MG TA2 MG PO (14:55)
--- NOTE | 2019-03-02 16:14 | NUR ---
Assumed pt care this am, wound dressing dry and intact with no signs of infections. Left HORACE drain removed with 10 to 15 cc draininage. Pain was verbalized managed with medication. Orthostatic bp, and nocturnal study relayed to Dr. Archibald, Dr. Davis gave dc orders. Pt. seen by Dr. Cruz pain medication scrip given, Drt. Archibald called in the pts pharmacy the anti biotics. POC followed, PICC line removed. Surgical site cleaned and dressed along with HORACE site for drains. DC instructions and prescriptions given to the pt. Pt was picked up by her friend.
--- NOTE | 2019-03-05 10:20 | NUR ---
ORDER WAS PUT IN BY THE ER PHYSICIAN (DR ROLLE) FOR SWS REGARDING PT REFUSED INPT REHAB PRIOR TO DC ON 03/02/19. DCP LOOKED INTO ORDERS ON THAT PT'S STAY AND THERE WAS NEVER A CONSULT FOR THE REHAB PHYSICIAN TO SEE. PT/OT RECOMMENDED HH AT DC WHICH PT WAS DISCHARGED WITH [facility]. SPOKE WITH NUCLEAR MEDICINE PHYSICIAN (PETER MALCOLM) SHE SAID TO HAVE PHYSICAL THERAPY EVAL PT IN THE ER AND SEE WHAT THEY RECOMMEND. DCP NOTIFIED ER SPOKE WITH ELIECER VIERA.
== END 2019-03-02 15:43 | disposition home health service (06) | DRG 336 ==
LOC: TBA 05:20 → ICU 05:20 → PRE 11:20 → ICU 19:47 → 4W 02-25 11:10
PROVIDERS: Anesthesiology; Internal Medicine; Nurse Practitioner Adult Health; ADMIT Surgery
PROC: 0JB80ZZ Excision of Abdomen Subcutaneous Tissue and Fascia, Open Approach (ICD-10-PCS; principal; 2019-02-21)
PROC: 0WUF0JZ Supplement Abdominal Wall with Synthetic Substitute, Open Approach (ICD-10-PCS; principal; 2019-02-21)
PROC: 02H633Z Insertion of Infusion Device into Right Atrium, Percutaneous Approach (ICD-10-PCS; principal; 2019-02-21)
PROC: 0DNW0ZZ Release Peritoneum, Open Approach (ICD-10-PCS; principal; 2019-02-21)
DX: K43.0 Incisional hernia with obstruction, without gangrene (principal); Z68.41 Body mass index [BMI] 40.0-44.9, adult; I10 Essential (primary) hypertension; E66.01 Morbid (severe) obesity due to excess calories; F32.9 Major depressive disorder, single episode, unspecified; G47.33 Obstructive sleep apnea (adult) (pediatric); E11.9 Type 2 diabetes mellitus without complications; M19.90 Unspecified osteoarthritis, unspecified site; I95.81 Postprocedural hypotension; Z88.6 Allergy status to analgesic agent; Z88.8 Allergy status to other drugs, medicaments and biological substances; Z90.49 Acquired absence of other specified parts of digestive tract; Z85.43 Personal history of malignant neoplasm of ovary
CPT/HCPCS: 10047; 10078; 27000; 50010; 50093; 50101; 50331; 50386; 50455; 50621; 51114; 51412; 51437; 56524; 56525; 56527; 56530; 57092; 57183; 57242; 62110; 62900; 65075; 70005

== ENCOUNTER 2019-03-05 07:57 | Inpatient (IN) | payer OTHER ==
[~2019-03-05] VITALS: Ht 172.7 cm; Wt 116.0 kg
--- NOTE | ~2019-03-05 | EMS ---
[address] [address] EMS Patient Care Report Name: LAURA CROFT Room #: 170-11 ADM IN M.R.#: [id number] Admission: 03/05/19 Attend Phys: Marcus Comer MD Discharge: Date of : 53 Report #: [id number] THIS REPORT FOR: //name// Report Transmitted: 03/05/2019 16:14 EMS Care Summary [place], [place]/[facility] Incident [id number] @ 03/05/2019 07:19 Incident [address] [place] [address] Patient LAURA CROFT Female, 64 Years 1955 Patient Address [address] [place] [address] Patient History Surgery,Hernia (Abdominal), Patient Allergies Lisinopril, Patient Medications None Reported, Chief Complaint ABDOMINAL PAIN AFTER A SURGERY Disposition Transported No Lights/[place] Dispatch Reason Sick Person Transported To [facility] Narrative PT STATES THAT PT HAD SURGERY TO FIX A HERNIA 2 DAYS AGO. PT STATES THAT FEELS NAUSEA AND PAIN IN PT'S ABDOMEN. PT DENIES ANY DIFFICULTY USING THAT BATHROOM. PT STATES THAT PT'S BACK HURTS IN THE MIDDLE BUT PT HASN'T FALLEN OR INJURED PT SELF RECENTLY. PT HAS NO OTHER COMPLAINTS. [address] [address] EMS Patient Care Report Name: LAURA CROFT Room #: 170-11 ADM IN ..#: [id number] Admission: 03/05/19 Attend Phys: Marcus Comer MD Discharge: Date of : 53 Report #: [id number] PT WAS FOUND SITTING IN PT'S CAR. PT IS ABLE TO STAND AND PIVOT TO GET ONTO EMS COT WITH ASSISTANCE. PT SPOKE IN FULL AND COMPLETE SENTENCES. PT HAS A WOUND FROM RECENT SURGERY. PT HAS NO OTHER OBVIOUS ABNORMALITIES. PT REPORT AND CARE WERE GIVEN TO SR. MEDIA MANAGER AT [facility]. Initial Vitals @07:43P: 89,CO: 4,SpO2: 94, @07:33P: 104,R: 18,BP: 113/73,Pain: 10/10,GCS: 15,Glucose: 142,CO: 0,SpO2: 93,Revised Trauma: 12, @07:43R: 18,BP: 124/73,Pain: 10/10,GCS: 15,Revised Trauma: 12, Assessments @08:13MENTAL:Person Oriented,Time Oriented,Place Oriented,Event Oriented,SKIN:HEENT:Eyes: Left Pupil: 4-mm,Eyes: Right Pupil: 4-mm,Head/Face: No Abnormalities,Neck/Airway: No Abnormalities,LUNG SOUNDS:Left Upper: Other,Right Upper: Other,Right Lower: Other,General: No Abnormalities,ABDOMEN:Left Upper: Other,Right Upper: Other,Right Lower: Other,General: No Abnormalities,PELVIS//GI:EXTREMITIES:Capillary Refill: Right Upper: < 2 Sec,Left Arm: No Abnormalities,Right Arm: No Abnormalities,Left Leg: No Abnormalities,Right Leg: No Abnormalities,PULSE:Brachial: 2+ Normal,NEURO:@07:49MENTAL:Place Oriented,Person Oriented,Event Oriented,Time Oriented,SKIN:HEENT:Eyes: Left Pupil: 4-mm,Eyes: Right Pupil: 4-mm,Head/Face: No Abnormalities,LUNG SOUNDS:General: No Abnormalities,ABDOMEN:General: No Abnormalities,PELVIS//GI:EXTREMITIES:Capillary Refill: Right Upper: < 2 Sec,Left Arm: No Abnormalities,Right Arm: No Abnormalities,Left Leg: No Abnormalities,Right Leg: No Abnormalities,PULSE:Brachial: 2+ Normal,NEURO: Impression Abdominal Pain Procedures @07:39ALS AssessmentResponse: UnchangedSucceeded@07:393-Lead ECGResponse: UnchangedSucceeded@07:40Zofran - 4 Milligrams (mg) - Intravenous (IV)Response: Unchanged Timeline 07:19,Call Received 07:19,Dispatch Notified 07:19,Dispatched 07:20,En Route 07:25,On Scene 07:26,At Patient 07:33,BP: 113/73 M,PULSE: 104,RR: 18 R,SPO2: 93 Ox,ETCO2: ,B,PAIN: [address] [address] EMS Patient Care Report Name: LAURA CROFT Room #: 170-11 ADM IN M.R.#: [id number] Admission: 03/05/19 Attend Phys: Marcus Comer MD Discharge: Date of : 53 Report #: [id number],GCS: 15, 07:36,Depart Scene 07:39,ALS Assessment,Response: UnchangedSucceeded, 07:39,3-Lead ECG,Response: UnchangedSucceeded, 07:40,Zofran - 4 Milligrams (mg) - Intravenous (IV),Response: Unchanged 07:43,BP: / M,PULSE: 89,RR: R,SPO2: 94 Ox,ETCO2: ,BG: ,PAIN: ,GCS: , 07:43,BP: 124/73 M,PULSE: ,RR: 18 R,SPO2: Ox,ETCO2: ,BG: ,PAIN: 10,GCS: 15, 07:50,At Destination 08:27,Call Closed Disclaimer v1.1 Copyright 2019 [employer] This EMS Care Summary contains data elements from the applicable legal record (which may be displayed differently). It is designed to provide pertinent information for the following purposes: continuity of care, clinical quality, and state data reporting. The complete legal record is available to ED staff and administrators of the receiving hospital in [employer] Patient Tracker. All data is provided "as is."
[~2019-03-05 07:57] MED LIST changes: +DILAUDID 2 MG TA2 MG PO; +PERCOCET 7.5-31 EACH PO
[2019-03-05 07:58] VITALS: BP 152/75
[2019-03-05 08:19] LABS: ABSOLUTE NEUTROPHILS 7.2 thou/uL (1.4-8.2); BASOPHILS 0.8 % (0.0-2.0); EOSINOPHILS 5.1 % (0.0-3.0); HEMATOCRIT 34.8 % (37.0-47.0); HEMOGLOBIN 11.8 gm/dL (12.0-15.0); LYMPHOCYTES 13.3 % (24.0-44.0); MCHC 33.9 g/dL (28.0-37.0); MCV 94.3 fL (80.0-100.0); MONOCYTES 6.2 % (1.0-8.0); PLATELET COUNT 437 thou/uL (150-400); POLYS 74.6 % (36.0-66.0); RBC 3.69 mil/uL (4.20-5.00); RDW 13.8 % (10.5-14.5); WBC 9.6 thou/uL (4.0-11.0)
[2019-03-05 08:28] LABS: CALCIUM 9.4 mg/dL (8.5-10.1); CREATININE 0.8 mg/dL (0.6-1.0); POTASSIUM 3.4 mmol/L (3.5-5.1)
[2019-03-05 08:34] LABS: ALBUMIN 2.7 g/dL (3.4-5.0); TOTAL BILIRUBIN 0.4 mg/dL (<0.1-1.0); TOTAL PROTEIN 6.6 g/dL (6.4-8.2)
[2019-03-05 08:42] LABS: URINE BILIRUBIN NEGATIVE (Negative); URINE BLOOD NEGATIVE (Negative); URINE CLARITY CLEAR; URINE COLOR YELLOW; URINE GLUCOSE-RANDOM* NEGATIVE (Negative); URINE KETONES NEGATIVE (Negative); URINE LEUKOCYTES NEGATIVE (Negative); URINE NITRITE NEGATIVE (Negative); URINE PROTEIN (DIPSTICK) NEGATIVE (Negative)
[2019-03-05 16:11] VITALS: BP 120/64
[2019-03-05 16:37] VITALS: BP 121/58
--- NOTE | 2019-03-05 18:15 | NUR ---
PT HAD STAFF USE 3.00 OF HER RODRIGUES TO BUY A 7-UP FROM VENDING MACHINE.
[2019-03-05 18:25] VITALS: BP 126/65
--- NOTE | 2019-03-05 18:40 | NUR ---
PT ADMITTED TO ROOM 431 PT ALERT XS 4 LUNGS CTA NO COUGH NOTED HAS 29 LETICIA TO ABD. HAD HERNIA SURGERY WITH DR JOHNSON WAS DISCHARGED SAT 03/02/19. HAS BRUISING NO OPEN AREAS. CONT OF B&B. PT TO CALL FOR SBA WHEN TOILETING. WILL CALL DR BUSTAMANTE FOR MED ORDERS.
--- NOTE | 2019-03-05 19:10 | NUR ---
PATIENT SEEN BY SHERLY RICHARDS NP WITH DR. BROOKS. PATIENT IS NOT AN APPROPRIATE ACUTE REHAB CANDIDATE. SKILLED PLACEMENT FOR REHAB IS MORE APPROPRIATE. F[employer]ER[employer] SKI MAKER NOTIFIED. THANK YOU FOR THIS REFERRAL.
[2019-03-05 20:08] VITALS: BP 131/81
[2019-03-06 04:35] VITALS: BP 114/79
--- NOTE | 2019-03-06 05:06 | NUR ---
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
[2019-03-06 07:28] VITALS: BP 133/64
[2019-03-06 08:23] LABS: ABSOLUTE NEUTROPHILS 10.2 thou/uL (1.4-8.2); BASOPHILS 0.7 % (0.0-2.0); EOSINOPHILS 4.7 % (0.0-3.0); HEMATOCRIT 34.5 % (37.0-47.0); HEMOGLOBIN 11.4 gm/dL (12.0-15.0); LYMPHOCYTES 15.1 % (24.0-44.0); MCH 31.5 pg (26.0-34.0); MCHC 32.9 g/dL (28.0-37.0); MCV 95.7 fL (80.0-100.0); MONOCYTES 8.5 % (1.0-8.0); PLATELET COUNT 497 thou/uL (150-400); RBC 3.61 mil/uL (4.20-5.00); WBC 14.4 thou/uL (4.0-11.0)
[2019-03-06 08:33] LABS: CALCIUM 9.7 mg/dL (8.5-10.1); CREATININE 1.5 mg/dL (0.6-1.0); POTASSIUM 4.1 mmol/L (3.5-5.1)
--- NOTE | 2019-03-06 12:01 | NUR ---
Assessment completed.Vss.Pt in bed resting after breakfast.Received call from Ct to keep pt npo.Piv went bad and it was replaced by iv team.Dr Comer here,order noted.Pt c/o nausea and pain.Meds given as ordered.Will continue to monitor.
[2019-03-06 16:30] VITALS: BP 147/63
--- NOTE | 2019-03-06 17:05 | NUR ---
ASSESSMENT-PT LIVES AT HOME AND HAD BEEN DISCHARGED HOME WITH [facility] ON 03/02/19 BUT WAS NOT ABLE TO AMANAGE AT HOME. SHE IS INTERESTED IN GOING TO REHAB AND WOULD LIKE TO GO TO [facility] SO DR MARTIN CAN FOLLOW HER. PT SAYS SHE HAS A TRANSFER BENCH ON ORDER BUT IT HAD NOT ARRIVED YET. THERAPY WORKING WITH PT. PT COULD TRANSFER TO [facility] ANYTIME THINKS SHE IS MEDICALLY READY FOR DC. FOLLOWING TO ASSIST WITH DC PLANNING.
[2019-03-06 19:13] VITALS: BP 132/68
[2019-03-07] VITALS (26 sets, daily range): BP systolic 106–150; BP diastolic 51–116
--- NOTE | 2019-03-07 03:00 | NUR ---
IVF INFUSING, KEPT NPO DUE TO VOMITING, REFUSED NGT FOR NOW BUT MADE AWARE THAT NEXT TIME SHE VOMITS NG WILL BE INSERTED. MONITORED.
[2019-03-07 05:02] LABS: HEMATOCRIT 34.9 % (37.0-47.0); HEMOGLOBIN 11.5 gm/dL (12.0-15.0); MCH 31.6 pg (26.0-34.0); MCV 95.7 fL (80.0-100.0); RBC 3.64 mil/uL (4.20-5.00); RDW 13.7 % (10.5-14.5); WBC 10.8 thou/uL (4.0-11.0)
[2019-03-07 05:33] LABS: ALBUMIN 2.8 g/dL (3.4-5.0); CALCIUM 8.6 mg/dL (8.5-10.1); CREATININE 1.3 mg/dL (0.6-1.0); POTASSIUM 3.8 mmol/L (3.5-5.1); TOTAL BILIRUBIN 0.4 mg/dL (<0.1-1.0); TOTAL PROTEIN 6.6 g/dL (6.4-8.2)
--- NOTE | 2019-03-07 08:35 | H ---
[facility] [address] [place] [address] HISTORY AND PHYSICAL Name: LAURA CROFT Room #: 431-P ADM IN M.R.#: [id number] Admission: 03/05/19 Attend Phys: Marcus Comer MD Discharge: Date of : 53 Report #: [id number] THIS REPORT FOR: //name// CC: Marcus Comre HISTORY OF PRESENT ILLNESS: The patient is 64-year-old female who had large hernia repair that was done about 10 days ago. The patient had a slow recovery during her stay in the hospital and she was discharged home, even though she was offered to go to shelter facility, but she refused that. Unfortunately, the patient did not do very good at home and actually she had to come back to the hospital because she was not able to take care of herself and she was having continuous nausea, vomiting even though she was having some bowel movement. The patient indicated that she is not having any problem with bowel movement. The patient did not have any fever or chills, but she is obviously more short of breath by talking to her today. PAST MEDICAL HISTORY: Significant for morbid obesity. The patient has a history of metabolic syndrome; osteoarthritis; ovarian cancer in 2007 that was treated with hysterectomy and chemotherapy; cholecystectomy; appendectomy; abdominal hernia repairs in 2008, 2009, 2010, 2011 and 2012; multiple abdominal infections; abdominal wall abscesses; tonsillectomy; hypertension; depression; obstructive sleep apnea; frequent nausea. MEDICATIONS: Reviewed and reconciled. ALLERGIES: LISINOPRIL. SOCIAL HISTORY: The patient denies any use of smoking or alcohol. The patient denies any drug use. FAMILY HISTORY: Noncontributory. REVIEW OF SYSTEMS: The patient continued to have intermittent coughing. She denies any chest pain, but she is complaining of some increasing shortness of breath. The patient denies any abdominal pain, but she has been having the nausea and vomiting. She said that she had multiple bowel movements. The patient denies any pain in the arms or legs. PHYSICAL EXAMINATION: VITAL SIGNS: Showed a temperature of 97.8, pulse 88, respirations 18, blood pressure 114/79. Oxygen saturation is 97% on 2 liters of oxygen. HEAD AND NECK: Unremarkable. LUNGS: Showed bilateral expiratory wheezes. CARDIAC: S1, S2. ABDOMEN: Benign. Bowel sounds are hypoactive. EXTREMITIES: Without any edema. The patient does not have any asymmetry. [address] [address] HISTORY AND PHYSICAL Name: LAURA CROFT Room #: 431-P [facility]#: [id number] Admission: 03/05/19 Attend Phys: Marcus Comer MD Discharge: Date of : 53 Report #: [id number] LABORATORY DATA: The patient's lab showed white count of 9.6, hemoglobin 11.8, hematocrit 34.8, platelet count 437, neutrophils are 74%. The patient's chemistry showed a sodium of 141, potassium 3.4, chloride 101, bicarbonate 34, BUN 18, creatinine 0.8, glucose 134, lipase is 81, ALT 16, total protein 6.6, albumin is 2.7. Urinalysis was negative. ASSESSMENT AND PLAN: 1. Status post hernia repair. 2. Hypoactive bowel sounds with nausea and vomiting. 3. Increasing shortness of breath with wheezes. The patient was admitted to the hospital with the above-mentioned diagnoses. The patient has never been diagnosed to have chronic obstructive pulmonary disease and she did not have smoking exposure. The patient had recent surgery, where she was in bed for a long period of time. For this reason, I will do a CT scan of the chest with PE protocol to rule out the possibility of pulmonary embolism. I will have Dr. Schroeder from Surgery to consult on the patient. The patient's abdominal incision is healing very nicely. I will start the patient on breathing treatment while we are investigating the cause of shortness of breath. The patient had multiple vomiting episodes and we have to rule out the possibility of pneumonia even though the patient's white count is within normal range. The patient was diagnosed to have urinary tract infection before she left the hospital. For this reason, I will go ahead and use Cipro. The patient is on multiple blood pressure medications, but her blood pressure is on the low side. For this reason, I will hold those blood pressure medications. We will ask social service liaison to work on placement to shelter facility. <ELECTRONICALLY SIGNED> By: Marcus Comer MD 03/07/19 0835 [id number] [id number] Marcus Comer MD /nt
--- NOTE | 2019-03-07 09:25 | NUR ---
Assumed pt care at 0730.Pt in bed very sleepy but arousable.At 0815,shop girl called this rn and reported that pt c/o soa.Vs taken and recorded. O2 sat was in the upper 70's on 2l.o2 increased to 4l and rt paged.Dr Comer notified and Rat team activated.Pt blood sugar was 137.Barbara hooper from icu arrived, assessed pt and ng placed.Dr Schroeder notified.Dr Comer here and ordered pt to transfer to icu.Pt left for icu at 0855. At 0905 was coded and intubated at 0908.Dr Comer and Alexandre updated about pt status.Pt Family and friends notified about pt transfer to icu. ordered pt to be transfer to icu.Pt left bed bed at 0850.At 0905,pt was coded in icu and intubated at 0908.Pt
[2019-03-07 09:33] LABS: BE(vivo) 2.8 mmol/L (-2 to +3); HCO3 29.1 mmol/L (22.0-26.0); PCO2 52.9 mmHg (35.0-45.0); PO2 91.1 mmHg (80.0-100.0); pH 7.359 (7.360-7.450); sO2 96.6 % (92.0-98.0)
[2019-03-07 10:03] LABS: CALCIUM 9.3 mg/dL (8.5-10.1); CREATININE 1.6 mg/dL (0.6-1.0); POTASSIUM 4.6 mmol/L (3.5-5.1)
[2019-03-07 10:27] LABS: URINE BLOOD NEGATIVE (Negative); URINE COLOR YELLOW; URINE GLUCOSE-RANDOM* NEGATIVE (Negative); URINE KETONES NEGATIVE (Negative); URINE LEUKOCYTES-REFLEX NEGATIVE (Negative); URINE NITRITE-REFLEX NEGATIVE (Negative); URINE PROTEIN (DIPSTICK) 1+ (Negative); URINE SPECIFIC GRAVITY 1.025 (1.005-1.035)
[2019-03-07 10:29] LABS: ICTOTEST (BILI CONFIRMATORY) Negative (Negative); URINE BILIRUBIN NEGATIVE (Negative); URINE CLARITY HAZY
--- NOTE | 2019-03-07 10:33 | NUR ---
VASCULAR ACCESS CONSULTED POST CODE BY DR ONEAL FOR STAT PICC LINE. PT HAD PREVIOUS PICC FEW WEEKS AGO. KIKE BASILIC WAS WIDELY PATENT WITH USG. 5FR TL POWER PICC TRIMMED TO 45CM INSERTED [facility] 1ST CXR SHOWED LINE DEEP WITHDREW TOTAL 6CM THEN CXR REDONE FOR CONFIRMATION.
[2019-03-07 10:35] LABS: BACTERIA-REFLEX >30 Many /HPF (None Seen); HYALINE CASTS 0-3 Few /LPF (None Seen); SQUAMOUS 4-10 Moderate /LPF (0-3); URINE RBC None Seen /HPF (0-2); URINE WBC-REFLEX 0-5 Rare /HPF (0-5)
[2019-03-07 10:37] LABS: CRYSTALS None Seen /LPF (None Seen); FINE GRANULAR CASTS 0-3 Few /LPF (None Seen)
--- NOTE | 2019-03-07 10:43 | NUR ---
CXR CONFIRMED CAJ, PICC RELEASED FOR IMMEDIATE USE PER PROTOCOL TO GONZÁLEZ VIERA
--- NOTE | 2019-03-07 13:16 | NUR ---
0900-PT ARRIVED INTO ROOM S/P COPY LATHE OPERATOR,INTO ICU BED & PT W AGONAL RESP'S THEN QUIT BREATHING. CODE BLUE CALLED,PT BAGGED 100%. SEE CODE BLUE NOTES.PT NEVER LOST PULSE.--VW 09-PICC BEING PLACED.--VW 1000-PCXR,KUB DONE.FENTANYL FOR PAIN.--VW 1015-CUR,CSPBR SENT.--VW 1030-PAGE TO VIA OFFICE FOR UPDATE.--VW 1045-BC X2,15 MIN APART.--VW 1100-COMPLETE BATH GIVE,REPEAT KUB DONE.--VW 1130-MRSA NASAL SWAB SENT.FIO2 DOWN TO .80%, PEEP TO 8cm BY R.T.--VW 1300- UPDATED.--VW
--- NOTE | 2019-03-07 20:06 | NUR ---
1829-RESTS MORE COMF AFTER FENTANYL.SHIFTS SELF IN BED,NOT FOLLOWING COMMANDS CONSISTENTLY BUT MORE AWARE.PROPOFOL FOR VENT COMFORT.VSS.--VW 1919-CARE TURNED OVER TO ONCOMING RN.--VW
[2019-03-08] VITALS (19 sets, daily range): BP systolic 114–149; BP diastolic 48–83
[2019-03-08 05:25] LABS: BE(vivo) 3.1 mmol/L (-2 to +3); HCO3 27.8 mmol/L (22.0-26.0); PO2 144.4 mmHg (80.0-100.0); pH 7.429 (7.360-7.450); sO2 98.9 % (92.0-98.0)
[2019-03-08 05:39] LABS: WBC 9.5 thou/uL (4.0-11.0)
[2019-03-08 05:41] LABS: ABSOLUTE NEUTROPHILS 6.8 thou/uL (1.4-8.2); BASOPHILS 0.8 % (0.0-2.0); EOSINOPHILS 4.8 % (0.0-3.0); HEMATOCRIT 28.4 % (37.0-47.0); HEMOGLOBIN 9.7 gm/dL (12.0-15.0); LYMPHOCYTES 13.2 % (24.0-44.0); MCH 32.2 pg (26.0-34.0); MCV 94.8 fL (80.0-100.0); MONOCYTES 9.1 % (1.0-8.0); PLATELET COUNT 365 thou/uL (150-400); POLYS 72.1 % (36.0-66.0); RDW 14.1 % (10.5-14.5)
[2019-03-08 05:54] LABS: ALBUMIN 2.3 g/dL (3.4-5.0); CALCIUM 8.1 mg/dL (8.5-10.1); CREATININE 0.8 mg/dL (0.6-1.0); TOTAL BILIRUBIN 0.3 mg/dL (<0.1-1.0); TOTAL PROTEIN 5.8 g/dL (6.4-8.2)
[2019-03-08 05:55] LABS: POTASSIUM 3.3 mmol/L (3.5-5.1)
--- NOTE | 2019-03-08 07:18 | NUR ---
END OF SHIFT NOTE. ASSUMED CARE ON 03/07 AT APPROX 1900. UPON ARRIVAL PATIENT WAS SEDATED AND INTUBATED. PATIENT WAS ASSESSED AND VITALS WERE TAKEN PER ICU PROTOCOL. PATIENT REMAINED ON PROPOFOL GTT TO TOLERATE VENT. IN AM MD MARTIN NOTIFIED OF A POTASSIUM OF 3.3 AND A 11 BEAT RUN OF AFIB RVR IN THE 140'S. ORDERS OBTAINED FOR A MAGNESIUM DRAW AND TO REPLACE POTASSIUM WITH 20 MEQ.
--- NOTE | 2019-03-08 10:37 | NUR ---
DISCHARGE PLANNING. POST ACUTE RECOMMENDED AT DISCHARGE. REFERRAL FAXED TO [facility]MISS[facility] FOR POST ACUTE CARE NEEDS. DISCHARGE DATE NOT SPECIFIED AT THIS TIME. SMILEY, WITH [facility] NOTIFIED. VERIFIED REFERRAL RECEIVED. UNIT SW AWARE. RA[facility]DO.
--- NOTE | 2019-03-08 11:13 | HC ---
[facility] [address] [place] [address] CONSULTATION Name: LAURA CROFT Room #: 245-P ADM IN M.R.#: [id number] Admission: 03/05/19 Attend Phys: Marcus Comer MD Discharge: Date of : 53 Report #: [id number] THIS REPORT FOR: //name// CC: Marcus Comer PULMONARY CONSULTATION REFERRING PHYSICIAN: Dr. Comer. REASON FOR REFERRAL: Acute respiratory failure. HISTORY OF PRESENT ILLNESS: The patient is a 64-year-old white female who had altered mental status along with respiratory failure. A pulmonary consultation was requested. The patient has an extensive medical history. She has been dealing with recurrent abdominal abscess for the last few years. On around early part of February this month, patient underwent repair of the incarcerated incisional ventral hernia. She also underwent lysis of adhesions along with debridement of necrotic abdominal wall. Of note, I do not see an operative note as of this dictation on the procedure performed then. Postoperatively, patient had developed hypotension requiring vasopressors. She was eventually discharged on 03/02/2019 to the nursing facility. She returns to the Emergency Department with abdominal pain, nausea one day prior to presentation. The patient was admitted on 03/05/2019. Last evening, patient apparently had complaints of nausea, emesis. This morning, she was found to be obtunded, dyspneic. She was transferred to the ICU. In the ICU, patient was found to be apneic and unresponsive. She was subsequently intubated by the ED physician. Portable chest x-ray shows ET tube approximately 2 cm over the jelani, right superior hilar infiltrates is noted. OTHER PERTINENT HISTORY: The patient was given Dilaudid following her surgery for chronic pain. Currently, she is borderline hypotensive. She is intubated. PAST MEDICAL HISTORY: As mentioned above including long history of multiple recurrent intraabdominal infections, multiple abdominal hernia repairs dating back to 2008, 2009, 2010, 2011 and 2012 and also most recently, osteoarthritis, ovarian cancer, undergone hysterectomy, along with subsequent chemotherapy, tonsillectomy, hypertension, depression, sleep apnea, on CPAP, chronic nausea and diabetes mellitus type 2. PAST SURGICAL HISTORY: As mentioned above including cholecystectomy, appendectomy, mass removed from the ovaries in 2008 with pathology was said to be benign. ALLERGIES: LISINOPRIL, which causes cough. [address] [address] CONSULTATION Name: LAURA CROFT Room #: 245-P ADM IN M.R.#: [id number] Admission: 03/05/19 Attend Phys: Marcus Comer MD Discharge: Date of : 53 Report #: [id number] MEDICATIONS: From the facility are reviewed, this include [place] 5/325 one tablet every 6 hours p.r.n., Flexeril 10 mg p.o. at bedtime, amlodipine 10 mg once a day, Effexor 225 mg once a day, Lyrica 100 mg p.o. b.i.d., Glucophage 1000 mg p.o. b.i.d., Pepcid 20 mg p.o. b.i.d., losartan/hydrochlorothiazide 100/25 one tablet once a day, Relafen 750 mg p.o. b.i.d., fluticasone nasal spray b.i.d., MiraLax. CURRENT MEDICATIONS: In the hospital stay is reviewed. FAMILY HISTORY: Noncontributory. SOCIAL HISTORY: She resides at a nursing facility. No past history of tobacco or alcohol use. REVIEW OF SYSTEMS: Deferred as the patient is intubated. PHYSICAL EXAMINATION: GENERAL: She is sedated following intubation. VITAL SIGNS: Temperature is 99.0 degrees Fahrenheit, pulse is 100, respiratory rate is 22, blood pressure 132/68 mmHg, saturation 94%. HEENT: Normocephalic, atraumatic. NECK: Supple, without lymphadenopathy or thyromegaly. CHEST: Breath sounds are fair. Few scattered crackles on both lower lung roper. CARDIOVASCULAR: Normal S1, S2. No murmurs or gallop. There is no JVD. There is no carotid bruit. Pulses are 2+/4+ bilaterally. ABDOMEN: Soft, nontender, no organomegaly or masses felt. GENITOURINARY: Deferred. RECTAL: Deferred. EXTREMITIES: There is no edema, cyanosis or clubbing. NEUROLOGIC: Deferred as patient is sedated. LABORATORY DATA: Portable chest x-ray post-intubation shows increase in right upper lobe, suprahilar density, elevated right hemidiaphragm, lung volumes are decreased. There is a recent CT chest performed on 03/06/2019 shows mild infiltrates in the right upper lobe, infiltrates in the superior basal segment of the left lower lobe. No mediastinal abnormalities noted. Stomach was severely distended with fluid, esophagus was filled with fluid concerning for gastric outlet obstruction. EKG shows sinus tachycardia with poor R-wave progression. KUB shows moderate amount of air, but otherwise nonspecific findings. Sodium 138, potassium 4.6, chloride 100, CO2 is 32, BUN 26, creatinine is 1.6, on admission was 0.8. Liver enzymes are grossly unremarkable. WBC 10,800, hemoglobin 11.5, platelets are mildly elevated. Albumin 2.8. Arterial blood gas revealed pH 7.35, pCO2 of 52 and pO2 of 91 on FiO2 of 100%. [facility] [address] [place] [address] CONSULTATION Name: LAURA CROFT Room #: 245-P ADM IN M.R.#: [id number] Admission: 03/05/19 Attend Phys: Marcus Comer MD Discharge: Date of : 53 Report #: [id number] IMPRESSION: 1. Ehddo-ox-jurwnxv hypercapnic hypoxic respiratory failure in this 64-year-old white female with multiple medical problems. She most recently underwent abdominal hernia repair. She has a long history of intra-abdominal wound infections along with multiple abdominal surgeries. She was found to have emesis since admission. Etiology probably related to aspiration, leading to hypoxia, leading to altered mental status. Other considerations include possible PRESS MAINTAINER event, medication induced as patient has been on narcotics. 2. Infiltrates, right upper lobe, left lower lobe, suspect aspiration pneumonia. 3. Acute kidney injury with creatinine of 1.6, creatinine was normal when she was admitted, perhaps likely related to severe sepsis. 4. Abdominal pain, nausea, vomiting, recent abdominal surgery with long history of intra-abdominal wound infection, multiple abdominal surgeries related to hernia. She is being followed by Surgery now with GI. 5. Hypertension. 6. Sleep apnea, on CPAP. 7. Diabetes mellitus type 2. RECOMMENDATION: We will continue mechanical ventilation, wean O2 for saturation 90%. We will try to taper FiO2 to below 60% if possible, may need to titrate PEEP. DVT and GI prophylaxis recommended. Broad-spectrum antibiotic is also recommended to cover for gram negatives, anaerobes given recent aspiration. Critical care time 1 hour. Thank you for this consultation. <ELECTRONICALLY SIGNED> By: Khoi Chand MD 03/08/19 1113 [id number] [id number] Khoi Chand MD /nt
--- NOTE | 2019-03-08 14:53 | NUR ---
dp texted Cierra at [facility] to let her know patient won't dc over the weekend, also that [facility] is looking at patient. Told Cierra we will touch base next weekend.
--- NOTE | 2019-03-08 16:41 | NUR ---
SW reviewed chart. Pt was transferred to ICU from yesterday morning. PAYROLL ACCOUNTING SPECIALIST was activated following episode of respiratory distress. Pt was coded and intubated in ICU. Pt remains on the vent at this time. No weekend discharge planned. 5N consulted to evaluate pt for possible admission to in acute rehab when medically stable. special events planner faxed referral to [facility] for review as well. SW is following to assist as needed with discharge planning.
--- NOTE | 2019-03-08 17:41 | NUR ---
PATIENT INITIALLY ASSESSED FOR ACUTE REHAB ON ADMISSION TO EMERGENCY ROOM AT THAT TIME PATIENT WAS NOT A REHAB CANDIDATE. PATIENT NOW WITH EXTENDED STAY AND TRANSFER TO ICU. PATIENT MAY HAVE REHAB NEEDS AT TIME OF HOSPITAL DISCHARGE THAT COULD BE APPROPRIATELY MET IN THE ACUTE REHAB SETTING. WILL CONTINUE TO FOLLOW.
--- NOTE | 2019-03-08 18:06 | EKG ---
[address] [address] ELECTROCARDIOGRAM REPORT Name: LAURA CROFT Room #: 245- ADM IN M.R.#: [id number] Admission: 03/05/19 Attend Phys: Marcus Comer MD Discharge: Date of : 53 Report #: [id number] THIS REPORT FOR: //name// [facility] Test Date: 2019-03-07 Test Time: 08:37:00 Pat Name: LAURA CROFT Department: Room: 245 Gender: F Bonsai Tender: COLLIN : 1955 Requested By: Marcus Comer Order Number: [id number] MD: Theodore Stewart Measurements Intervals [place] Rate: 129 P: 50 OK: 135 QRS: -34 QRSD: 105 T: 28 QT: 428 QTc: 628 Interpretive Statements Sinus tachycardia Left axis deviation Abnormal R-wave progression, late transition Prolonged QT interval Compared to ECG 01/04/2019 08:36:48 Left-axis deviation now present Prolonged QT interval now present Electronically Signed On 03-08-2019 18:06:20 CDT by Theodore Stewart [email or web address] <ELECTRONICALLY SIGNED> By: Theodore Stewart MD, FACC 03/08/19 1806 0837 0837 Theodore Stewart MD, [facility] /E[facility]
[2019-03-09] VITALS (24 sets, daily range): BP systolic 110–154; BP diastolic 53–85
[2019-03-09 05:47] LABS: HEMATOCRIT 26.2 % (37.0-47.0); HEMOGLOBIN 8.8 gm/dL (12.0-15.0); MCH 31.9 pg (26.0-34.0); MCHC 33.7 g/dL (28.0-37.0); MCV 94.7 fL (80.0-100.0); RBC 2.76 mil/uL (4.20-5.00); RDW 13.9 % (10.5-14.5); WBC 8.3 thou/uL (4.0-11.0)
[2019-03-09 05:56] LABS: CALCIUM 7.9 mg/dL (8.5-10.1); CREATININE 0.5 mg/dL (0.6-1.0); POTASSIUM 3.4 mmol/L (3.5-5.1)
--- NOTE | 2019-03-09 06:39 | NUR ---
END OF SHIFT NOTE. ASSUMED CARE AT APPROX 1900 ON 03/08. UPON ARRIVAL PATIENT WAS ASSESSED AND VITALS WERE TAKEN ACCORDING TO ICU PROTOCOL. PATIENT IS INTUBATED AND SEDATED ON A PROPFOL GTT. VSS THROUGHOUT THE NIGHT. BATH COMPLETED. NO SIGNIFICANT EVENTS OVER NIGHT.
[2019-03-09 11:17] LABS: BE(vivo) 3.4 mmol/L (-2 to +3); HCO3 27.9 mmol/L (22.0-26.0); PCO2 42.3 mmHg (35.0-45.0); PO2 70.5 mmHg (80.0-100.0); pH 7.437 (7.360-7.450); sO2 94.7 % (92.0-98.0)
--- NOTE | 2019-03-09 13:05 | NUR ---
Pt weaned off Propofol for CPAP trial and extubation. Pt extubated at 1305 by RT following CPAP trial. Pt's voice is hoarse. Pt taking in loud whisper and writing notes to communicate. Sinus tachycardia. NG tube patent to LIS with green gastric drainage. Denies pain.
[2019-03-09 15:47] LABS: MAGNESIUM 2.1 mg/dL (1.8-2.4); POTASSIUM 3.4 mmol/L (3.5-5.1)
--- NOTE | 2019-03-09 19:15 | NUR ---
Pt has dozed for brief periods. Speaks in whisper voice or writes notes to communicate. Sinus tach. BP stable. O2 at 35% face shield. OG patent. Potassium replaced per protocol. Report given to RN assuming care. Pt's friend Luanne called for update on pt's status.
[2019-03-10] VITALS (30 sets, daily range): BP systolic 112–173; BP diastolic 47–93
[2019-03-10 06:05] LABS: ABSOLUTE NEUTROPHILS 5.3 thou/uL (1.4-8.2); BASOPHILS 1.5 % (0.0-2.0); EOSINOPHILS 7.8 % (0.0-3.0); HEMATOCRIT 28.2 % (37.0-47.0); HEMOGLOBIN 9.4 gm/dL (12.0-15.0); LYMPHOCYTES 16.3 % (24.0-44.0); MCH 31.4 pg (26.0-34.0); MCHC 33.3 g/dL (28.0-37.0); MCV 94.4 fL (80.0-100.0); MONOCYTES 10.1 % (1.0-8.0); PLATELET COUNT 360 thou/uL (150-400); POLYS 64.3 % (36.0-66.0); RBC 2.99 mil/uL (4.20-5.00); RDW 13.8 % (10.5-14.5); WBC 8.3 thou/uL (4.0-11.0)
[2019-03-10 06:13] LABS: CREATININE 0.5 mg/dL (0.6-1.0); POTASSIUM 3.6 mmol/L (3.5-5.1)
--- NOTE | 2019-03-10 07:00 | NUR ---
Pt slept off and on through the night with stable VS. PRN fentanyl given for c/o generalized pain with desired effect achieved. SpO2 adequate on 2L of O2 and urine output adequate for shift. PRN zofran given for c/o nausea with desired effect achieved and NGT drainage minimal for shift. Am lab results noted, continue with POC.
[2019-03-11] VITALS (8 sets, daily range): BP systolic 112–148; BP diastolic 56–89
--- NOTE | 2019-03-11 04:20 | NUR ---
ASSUMED CARE OF PT. AT 1900. PT. IS ALERT AND ORIENTED, CALM AND PLEASANT. CONTINUES TO COUGH AND HAVE COUGHOING FITS THROUGHOUT SHIFT. WHEN REMINDED TO RELAX AND DEEP BREATH PT. USUALLY STOPS COUGHING. PT. HAS BEEN UP MOST OF THE NIGHT. NSR TO ST ON MONITOR. ONLY TACHYCARDIC WHEN COUGHING. 2 BM TONIGHT. PT. TOLERATING SOME ICE CHIPS. DENIES PAIN. ASSESSMENT AND VITAL SIGNS CHARTED. WILL CONTINUE TO MONITOR.
[2019-03-11 04:53] LABS: HEMATOCRIT 29.6 % (37.0-47.0); HEMOGLOBIN 9.9 gm/dL (12.0-15.0); MCH 31.1 pg (26.0-34.0); MCHC 33.4 g/dL (28.0-37.0); MCV 93.2 fL (80.0-100.0); PLATELET COUNT 385 thou/uL (150-400); RBC 3.18 mil/uL (4.20-5.00); RDW 13.6 % (10.5-14.5); WBC 7.3 thou/uL (4.0-11.0)
[2019-03-11 05:05] LABS: CALCIUM 8.2 mg/dL (8.5-10.1); CREATININE 0.5 mg/dL (0.6-1.0); POTASSIUM 3.3 mmol/L (3.5-5.1)
[2019-03-11 05:44] LABS: ATYPICAL LYMPHS 1 %; MYELOCYTES 1 %
--- NOTE | 2019-03-11 10:15 | NUR ---
SHEILA sent updates to [facility] and let them know [facility] is also following patient, sheila spoke with Opal/[facility].
--- NOTE | 2019-03-11 13:53 | NUR ---
ASSUMED CARE THIS AM, AWAKE AND ALERT. NO C/O PAIN. DOES COMPLAIN OF INTERMITTENT NAUSEA WITH NO EMESIS. COUGHS AND CHOKES AT TIMES. SR ON MONITOR. 2L NC, SATS >96%. TRANSFER ORDERS TO MED/SURG TELE, AWAITING ROOM ASSIGNMENT.
--- NOTE | 2019-03-11 13:56 | NUR ---
SPOKE WITH DR. RUBY THIS MORNING AND UPDATED HIM ON HER COUGHING EPISODES.. PT/OT/ST ORDERED.
--- NOTE | 2019-03-11 13:57 | NUR ---
REPORT GIVEN TO MAXIMILIANO PEDRAZA. WAITING FOR TRANSPORT DOWN TO RADIOLOGY FOR VIDEO SWALLOW STUDY.
--- NOTE | 2019-03-11 14:23 | NUR ---
KING reviewed chart and spoke with nursing. Pt was extubated over the weekend and is slowly progressing towards goals for discharge. exercise planner faxed updates to [facility]. KING discussed case with media liaison officer, who is following for possible admission to in acute rehab if pt qualifies. KING met with pt at bedside to discuss discharge plan. Pt is agreeable with either or [facility]. KING contacted attending physician to discuss . SW is following to assist as needed with discharge planning.
--- NOTE | 2019-03-11 17:39 | NUR ---
TOOK REPORT ON PT AROUND 1300 - PT WENT TO HAVE A VIDEO SWALLOW - PASSED TEST AND REGULAR DIET ORDER CAME IN - PT ONLY ABLE TO EAT THE SOFTEST PARTS OF MEAL /S SIGNIFICANT COUGHING
--- NOTE | 2019-03-11 20:22 | NUR ---
CALLED BACK WITH ORDERS.
--- NOTE | 2019-03-11 21:51 | NUR ---
PT HAD PERSISTENT COUGHING THAT LAST NEARLY 7 MINS. SHE IS VERY WHEEZING OVER TRACHEAL AREA OTHERWISE COARSE T/O ALL OVER LUNG FIELD. THIS RN PLACED PT ON FS WITH HUMIDIFIER TO MOISTEN HER AIRWAY. RT WAS PAGED FOR STAT TREATMENT. NOTIFIED WITH NEW ORDER OBTAINED. WILL CONTINUE TO MONITOR.
--- NOTE | 2019-03-11 22:30 | NUR ---
Declotted reyes port with cathflo by IV team. This RN able to get blood returned. Discarded 10 cc of blood prior flush line with 20 ml of saline. She is layton procedure well.
--- NOTE | 2019-03-11 22:30 | NUR ---
PICC line is unable to draw any blood returned. But able to flush all ports. Notified IV team. IV nurse declot white port with cathflo. Leave it dwelling for 60 mins. This RN checked line with good blood returned. Discard blood 10 cc from port prior flushed line with 20 cc of saline. She is well layton procedure.
[2019-03-12 03:34] VITALS: BP 115/65
[2019-03-12 05:23] LABS: CALCIUM 8.4 mg/dL (8.5-10.1); CREATININE 0.6 mg/dL (0.6-1.0)
[2019-03-12 05:29] LABS: ABSOLUTE NEUTROPHILS 3.6 thou/uL (1.4-8.2); BASOPHILS 1.3 % (0.0-2.0); EOSINOPHILS 15.4 % (0.0-3.0); HEMATOCRIT 30.3 % (37.0-47.0); LYMPHOCYTES 26.3 % (24.0-44.0); MCH 31.2 pg (26.0-34.0); MCHC 33.1 g/dL (28.0-37.0); MCV 94.1 fL (80.0-100.0); MONOCYTES 9.2 % (1.0-8.0); PLATELET COUNT 387 thou/uL (150-400); POLYS 47.8 % (36.0-66.0); RBC 3.22 mil/uL (4.20-5.00); RDW 13.9 % (10.5-14.5); WBC 7.5 thou/uL (4.0-11.0)
--- NOTE | 2019-03-12 05:46 | NUR ---
Pt remains stable in this shift. No s/sx of any distress indicates. O2 sat 93% on RA. Her lung is remaining very coarse this am. She is able to clear secretion well. Her cough seems to be better with tessalon erna. Denies pain. Thompson is patent, she has only 200 out within 12 hrs. Taking PO well. Lab obtained. Results are pending. VSS. Afebrile in this shift. Will notify low UO to when he does rounds.
[2019-03-12 05:57] LABS: POTASSIUM 4.3 mmol/L (3.5-5.1)
[2019-03-12 06:03] VITALS: BP 126/75
--- NOTE | 2019-03-12 07:46 | NUR ---
Pt left ICU with stable conditions. All belonging are sent to room 214 with her. Report hand off MAXIMILIANO Teran.
[2019-03-12 08:01] VITALS: BP 117/72
[2019-03-12 11:04] VITALS: BP 97/58
--- NOTE | 2019-03-12 16:42 | NUR ---
TO UNIT FROM ICU BY WC AT SHIFT CHANGE, REPORT FROM MAXIMILIANO CHEN. NAGGING, UNPRODUCTIVE COUGH PERSISTS. SR PER TELE. ALTERNATELY ON AND OFF OXYGEN. WORKING WITH PT AND OT, SOB WITH ACTIVITY. TRANSFERRING TO 5N ONCE DR. MARTIN EFFECTS DISCHARGE SUMMARY. WILL CONTINUE TO FOLLOW.
[2019-03-12 20:15] VITALS: BP 139/56
[2019-03-13] VITALS (22 sets, daily range): BP systolic 96–182; BP diastolic 58–106
--- NOTE | 2019-03-13 03:23 | NUR ---
ASSUMED CARE OF PATIENT AT 1900. VSS, AFEBRILE. CONTINUES TO HAVE DRY HACKING COUGH WITH AUDIBLE WHEEZES ON INSPIRATION. MEDS GIVEN ORDERED, SOME RELIEF FROM COUGHING AT TIMES. UP TO BSC TO VOID, BECOMES EXTREMELY SOA AND TACHYCARDIC. EXPRESSED CONCERN ABOU GOING TO REHAB SO SOON. DOES NOT FEEL SHE IS READY. ENCOURAGED HER TO TALK ABOUT THIS WITH PHYSICIAN IN AM. WORKING TOWARDS POC GOALS.
[2019-03-13 05:12] LABS: HEMATOCRIT 28.8 % (37.0-47.0); HEMOGLOBIN 9.6 gm/dL (12.0-15.0); MCH 31.6 pg (26.0-34.0); MCHC 33.5 g/dL (28.0-37.0); MCV 94.3 fL (80.0-100.0); RBC 3.05 mil/uL (4.20-5.00); RDW 14.2 % (10.5-14.5); WBC 8.2 thou/uL (4.0-11.0)
[2019-03-13 05:16] LABS: CALCIUM 8.7 mg/dL (8.5-10.1); CREATININE 0.5 mg/dL (0.6-1.0); POTASSIUM 4.2 mmol/L (3.5-5.1)
--- NOTE | 2019-03-13 11:57 | NUR ---
AAOX4. COOPERATIVE. UNPRODUCTIVE, CROUPY COUGH PERSISTS. SOLUMEDROL ADDED TO REGIMEN, 5N TRANSFER ON HOLD. FREQUENT CHECKS; WILL CONTINUE TO MONITOR.
--- NOTE | 2019-03-13 16:52 | NUR ---
patient with stridor and coughing spells. She has new med orders for steriods. Patient not stable to transfer to 5N today. Patient reports she has a son at home with Elvia. She reports when he went to school they did not have a diagnosis. he has not rec disability or deemed disable. He works at [employer] but does not drive. Patient reports stress and difficutlty with transportation for son. Her sister in law who lives out of town has assisted with [employer]. [facility] has assisted. Discussed [employer] but patient needs to be disabled. Patient reports he is good with transport this week. She realizes she needs make changes. support to patient will attempt to assist with transportation for patients son. Son works at [employer] at [address].
[2019-03-13 18:29] LABS: BE(vivo) 3.7 mmol/L (-2 to +3); HCO3 31.9 mmol/L (22.0-26.0); PO2 273.1 mmHg (80.0-100.0); pH 7.302 (7.360-7.450); sO2 99.5 % (92.0-98.0)
--- NOTE | 2019-03-13 18:38 | NUR ---
CODE BLUE CALLED FOR RESPIRATORY DISTRESS. SAT 78% ON 15L. TRANSFERRING TO ICU, REPORT CALLED TO MAXIMILIANO RADFORD.
--- NOTE | 2019-03-13 19:40 | NUR ---
PT ARRIVED FROM ICU AT 1845. DAY TIME RN, MILO, RECEIVED REPORT FROM CCU NURSE. ON ARRIVAL PT PRESENTED VERY LETHARGIC, ALMOST UNAROUSABLE. UPON TRANSFERING PT TO ICU BED SHE BEGAN TO MOVE EXTREMETIES. SHE WAS ASKED ORIENTATION QUESTIONS, BUT RESPONDS "I CAN'T BREATHE" TO ALL QUESTIONS. SPOKE TO DR RUBY REGARDING PT's PRESENTATION AND CURRENT ABG RESULTS. ORDERS GIVEN TO DRAW LABS. PROVIDER IN ROUTE TO DETERMINE IF INTUBATION IS NECESSARY.
[2019-03-13 19:47] LABS: HEMATOCRIT 35.5 % (37.0-47.0); MCH 31.2 pg (26.0-34.0); MCHC 33.2 g/dL (28.0-37.0); MCV 94.2 fL (80.0-100.0); RBC 3.77 mil/uL (4.20-5.00); RDW 14.4 % (10.5-14.5); WBC 9.7 thou/uL (4.0-11.0)
[2019-03-13 19:48] LABS: HEMOGLOBIN 11.8 gm/dL (12.0-15.0)
[2019-03-13 19:55] LABS: CALCIUM 9.5 mg/dL (8.5-10.1); CREATININE 0.7 mg/dL (0.6-1.0); POTASSIUM 4.6 mmol/L (3.5-5.1)
[2019-03-13 20:16] LABS: BE(vivo) 1.9 mmol/L (-2 to +3); HCO3 29.9 mmol/L (22.0-26.0); PCO2 63.3 mmHg (35.0-45.0); PO2 183.1 mmHg (80.0-100.0); pH 7.292 (7.360-7.450); sO2 99.1 % (92.0-98.0)
[2019-03-13 23:03] LABS: BE(vivo) 6.6 mmol/L (-2 to +3); HCO3 32.8 mmol/L (22.0-26.0); PCO2 55.2 mmHg (35.0-45.0); PO2 135.8 mmHg (80.0-100.0); pH 7.392 (7.360-7.450); sO2 98.6 % (92.0-98.0)
[2019-03-14] VITALS (36 sets, daily range): BP systolic 97–175; BP diastolic 42–95
[2019-03-14 03:37] LABS: ABSOLUTE NEUTROPHILS 8.4 thou/uL (1.4-8.2); BASOPHILS 0.5 % (0.0-2.0); EOSINOPHILS 0.1 % (0.0-3.0); HEMATOCRIT 30.9 % (37.0-47.0); HEMOGLOBIN 10.3 gm/dL (12.0-15.0); LYMPHOCYTES 8.2 % (24.0-44.0); MCH 31.1 pg (26.0-34.0); MCHC 33.2 g/dL (28.0-37.0); MCV 93.7 fL (80.0-100.0); MONOCYTES 5.3 % (1.0-8.0); POLYS 85.9 % (36.0-66.0); RDW 14.5 % (10.5-14.5); WBC 9.8 thou/uL (4.0-11.0)
[2019-03-14 03:45] LABS: ALBUMIN 2.7 g/dL (3.4-5.0); CALCIUM 9.1 mg/dL (8.5-10.1); CREATININE 0.5 mg/dL (0.6-1.0); POTASSIUM 4.1 mmol/L (3.5-5.1); TOTAL BILIRUBIN 0.2 mg/dL (<0.1-1.0); TOTAL PROTEIN 6.5 g/dL (6.4-8.2)
[2019-03-14 03:55] LABS: PLATELET COUNT 410 thou/uL (150-400)
[2019-03-14 05:55] LABS: BE(vivo) 7.9 mmol/L (-2 to +3); HCO3 31.9 mmol/L (22.0-26.0); PO2 151.2 mmHg (80.0-100.0); pH 7.498 (7.360-7.450); sO2 99.1 % (92.0-98.0)
--- NOTE | 2019-03-14 07:22 | NUR ---
PATIENT TRANSFERRED TO ICU FOR DECLINE IN MEDICAL CONDITION. WILL AWAIT NEW OT ORDERS ONCE PATIENT IS MEDICALLY APPRORPIATE.
--- NOTE | 2019-03-14 09:50 | NUR ---
CONDITION DETERIORATED ON 2N YESTERDAY LATE DAY AND REQUIRED TRANSFER TO ICU RM 246, AND INTUBATION AROUND 0. STRIP TANK TENDER SPOKE WITH PT'S FAMILY LAST NIGHT TO UPDATE.
--- NOTE | 2019-03-14 10:18 | NUR ---
Nutrition: Consult recieved for tube feeds. RD ordered per Dr Echols. Vital HP at goal 40 mL/hr with current propofol rate will meet kcal needs but only 67% protein needs. If water flushes can be added rec 1 packet beneprotein powder in 225 mL H20 flushhes q 6 hrs.
--- NOTE | 2019-03-14 18:22 | NUR ---
ASSUMED CARE THIS AM. INTUBATED AND SEDATED BUT OPENS EYES TO VOICE. FOLLOWS COMMANDS. SOFT RESTRAINT TO BUE, CAN BE IMPULSIVE. DR. RUBY VERIFIED THAT ETT IS IN ACCEPTABLE POSITION AT 22CM AT THE LIP. NO ADJUSTMENTS TO BE MADE. VITAL 1.0 STARTED THIS SHIFT TO OGT. STARTED AT 20CC/HR WITH GOAL RATE OF 40CC/HR. TOLERATED WELL, UP TO 30CC/HR WITH 25CC RESIDUALS AT THE END OF MY SHIFT. . FIO2 DECREASED TO 30% THIS SHIFT.
[2019-03-15] VITALS (22 sets, daily range): BP systolic 82–148; BP diastolic 31–98
[2019-03-15 04:59] LABS: HCO3 30.1 mmol/L (22.0-26.0); PCO2 41.3 mmHg (35.0-45.0); PO2 91.9 mmHg (80.0-100.0); sO2 97.5 % (92.0-98.0)
[2019-03-15 05:53] LABS: MCH 31.4 pg (26.0-34.0); MCHC 33.5 g/dL (28.0-37.0); MCV 93.8 fL (80.0-100.0); RBC 2.88 mil/uL (4.20-5.00); RDW 14.5 % (10.5-14.5); WBC 7.6 thou/uL (4.0-11.0)
[2019-03-15 05:57] LABS: PLATELET COUNT 315 thou/uL (150-400)
[2019-03-15 06:10] LABS: ALBUMIN 2.4 g/dL (3.4-5.0); CALCIUM 8.8 mg/dL (8.5-10.1); CREATININE 0.7 mg/dL (0.6-1.0); POTASSIUM 4.1 mmol/L (3.5-5.1); TOTAL BILIRUBIN 0.2 mg/dL (<0.1-1.0); TOTAL PROTEIN 5.8 g/dL (6.4-8.2)
--- NOTE | 2019-03-15 07:00 | NUR ---
PT INTUBATED AND ON VENT; LIGHTLY SEDATED WITH PROPOFOL. PT ALERT, FOLLOWING COMMANDS, AND COMMUNICATING NEEDS VIA WRITING. TOLERATING TUBE FEEDINGS AT GOAL RATE, PT HAS HAD LITTLE TO NO RESIDUALS WHEN CHECKED. MINIMAL SECRETIONS FROM ET TUBE. PT IS PROGRESSING. WILL CONTINUE TO MONITOR.
[2019-03-15 08:53] LABS: ABSOLUTE NEUTROPHILS 5.5 thou/uL (1.4-8.2); ANISOCYTOSIS SLIGHT; MYELOCYTES 1 %
[2019-03-15 11:58] LABS: BE(vivo) 1.9 mmol/L (-2 to +3); HCO3 25.9 mmol/L (22.0-26.0); PCO2 37.7 mmHg (35.0-45.0); PO2 88.4 mmHg (80.0-100.0); pH 7.454 (7.360-7.450); sO2 97.1 % (92.0-98.0)
[2019-03-16] VITALS (23 sets, daily range): BP systolic 102–169; BP diastolic 38–82
--- NOTE | 2019-03-16 03:00 | NUR ---
PT INTUBATED AND ON VENT. LIGHTLY SEDATED WITH PRECEDEX, BUT IS STILL ALERT AND COMMUNICATES NEEDS WELL BY GESTURES AND WRITING. PT IS NO LONGER IN RESTRAINTS AND IS ORIENTED TO ABILITIES/LIMITATIONS. TUBE FEEDING RATE INCREASED YESTERDAY. PT HAS HAD LOW RESIDUALS, BUT HAS C/O ABD DISCOMFORT. PT GIVEN ZOFRAN, WHICH HELPED, BUT THE EFFECTS DID NOT LAST LONG. TUBE FEEDINGS HELD FOR ONE HOUR, AND PT REPORTED RELIEF OF ABD DISCOMFORT. TUBE FEEDINGS STARTED BACK AT LOWER RATE OF 35 ML/HR. WILL RE-EVALUATE AT 0400. PT HAS HAD A FEW COUGHING FITS AND HAS VERY LITTLE SECRETIONS WHEN SUCTIONED. PT STATES IT IS WHEN SHE MOVES AROUND A LOT THAT SHE BEGINS TO GAG. PT'S URINE HAS BEEN MORE CLOUDY AND HAS MORE OF A PINK TONE NOW (BLOOD TINGED). WILL PASS THIS INFORMATION TO DAY SHIFT NURSE TO RELAY TO PHYSCIANS. WILL CONTINUE TO MONITOR.
[2019-03-16 05:05] LABS: ABSOLUTE NEUTROPHILS 5.6 thou/uL (1.4-8.2); BASOPHILS 0.3 % (0.0-2.0); EOSINOPHILS 0.2 % (0.0-3.0); HEMATOCRIT 29.7 % (37.0-47.0); LYMPHOCYTES 16.1 % (24.0-44.0); MCH 31.4 pg (26.0-34.0); MCHC 33.5 g/dL (28.0-37.0); MCV 93.9 fL (80.0-100.0); MONOCYTES 5.6 % (1.0-8.0); PLATELET COUNT 318 thou/uL (150-400); POLYS 77.8 % (36.0-66.0); RBC 3.17 mil/uL (4.20-5.00); WBC 7.3 thou/uL (4.0-11.0)
[2019-03-16 05:21] LABS: ALBUMIN 2.6 g/dL (3.4-5.0); CALCIUM 8.8 mg/dL (8.5-10.1); CREATININE 0.7 mg/dL (0.6-1.0); POTASSIUM 4.2 mmol/L (3.5-5.1); TOTAL BILIRUBIN 0.3 mg/dL (<0.1-1.0); TOTAL PROTEIN 6.4 g/dL (6.4-8.2)
[2019-03-16 05:34] LABS: BE(vivo) 0.5 mmol/L (-2 to +3); HCO3 24.2 mmol/L (22.0-26.0); PCO2 35.4 mmHg (35.0-45.0); PO2 111.1 mmHg (80.0-100.0); pH 7.453 (7.360-7.450); sO2 98.3 % (92.0-98.0)
--- NOTE | 2019-03-16 17:33 | NUR ---
PT REMAINED OFF SEDATION THIS SHIFT. PT HAD NO MORE EPISODES OF BRADYCARDIA. PT TOLERATED NO SEDATION. PT REMAINS INTUBATED R/T NO AIR MOVEMENT AROUND CUFF WHEN IT WAS DEFLATED. PT EDUCATED ON OUTCOME. PT COMMUNICATES BY WRITING ON PAPER. PT IS A AND O X 4 PER WRITTEN COMMUNICATION. PT TOLERATED TUBE FEED AT 40 ML, RATE INCREASED TO 50 ML THIS AFTERNOON. WILL ATTEMPT TO GRADUALLY INCREASE RATE TO REACH GOAL OF 65 ML
[2019-03-17] VITALS (24 sets, daily range): BP systolic 104–154; BP diastolic 48–75
--- NOTE | 2019-03-17 03:12 | NUR ---
Pt remains in stable condition, she is able to make her needs known, she is able to provide her own suctioning for oral secretions, and has received prn pain meds x 2 since the start of the shift. She remains on the vent, w/o sedation or restraints. Thompson catheter is patent, draining clear yellow urine to DD. She has an OG, receiving tube feeding, placement checked by A&A, no residual returned, flushes freely. Her abd midline incision is well-approximated, angi intact, no signs or symptoms of infection are noted. Will continue to monitor.
[2019-03-17 05:01] LABS: BASOPHILS 0.4 % (0.0-2.0); EOSINOPHILS 0.1 % (0.0-3.0); HEMATOCRIT 30.3 % (37.0-47.0); LYMPHOCYTES 13.6 % (24.0-44.0); MCH 31.2 pg (26.0-34.0); MCV 94.4 fL (80.0-100.0); MONOCYTES 5.2 % (1.0-8.0); PLATELET COUNT 349 thou/uL (150-400); POLYS 80.7 % (36.0-66.0); RBC 3.21 mil/uL (4.20-5.00)
[2019-03-17 05:18] LABS: CALCIUM 8.5 mg/dL (8.5-10.1); CREATININE 0.7 mg/dL (0.6-1.0); MAGNESIUM 2.1 mg/dL (1.8-2.4); POTASSIUM 4.4 mmol/L (3.5-5.1)
--- NOTE | 2019-03-17 13:18 | NUR ---
ASSUMED CARE OF PT AT 0700 THIS SHIFT. PT HAS BEEN COOPERATIVE, HAS DENIED PAIN THIS SHIFT. PT IS BOTHERED BY A PERSISTANT COUGH, AND INLINE SUCTIONING IS PAINFULL TO PT. PT IS CURRENTLY WAITING TO BE SEEN BY ENT PHYSICIAN. THERE IS A CONCERN FOR EXTUBATION FROM RESPIRATORY PHYSICIAN, AWAITING ENT CONSULT. PLAN OF CARE IS TO CONTINUE TO MONITOR PT CLOSELY AT THIS TIME.
[2019-03-18] VITALS (24 sets, daily range): BP systolic 100–137; BP diastolic 39–71
--- NOTE | 2019-03-18 08:02 | NUR ---
See [facility] for notes. Pt cont to have coughing spells, meds given as ordered. Cont to have thin secretions via oral and ett. 02sat wnl. Luci tube feeding. No stools. + flatus. good urine output. Cont plan of care
[2019-03-18 08:09] LABS: ABSOLUTE NEUTROPHILS 10.2 thou/uL (1.4-8.2); BASOPHILS 0.3 % (0.0-2.0); EOSINOPHILS 0.5 % (0.0-3.0); HEMOGLOBIN 10.3 gm/dL (12.0-15.0); LYMPHOCYTES 11.8 % (24.0-44.0); MCH 31.2 pg (26.0-34.0); MCHC 33.1 g/dL (28.0-37.0); MCV 94.2 fL (80.0-100.0); MONOCYTES 5.3 % (1.0-8.0); PLATELET COUNT 298 thou/uL (150-400); POLYS 82.1 % (36.0-66.0); RBC 3.29 mil/uL (4.20-5.00); RDW 14.8 % (10.5-14.5); WBC 12.4 thou/uL (4.0-11.0)
[2019-03-18 08:14] LABS: CALCIUM 8.9 mg/dL (8.5-10.1); CREATININE 0.7 mg/dL (0.6-1.0)
--- NOTE | 2019-03-18 11:37 | NUR ---
1135- THIS RN NOTICED THAT ENT PHYSICIAN HAD NOT BEEN BY TO SEE PATIENT SINCE CONSULTED ON 03/13/19. THIS NURSE CALLED AND SPOKE ON THE NURSE LINE AND IT WAS NOTED THAT THE CONSULT WAS CALLED INTO THE ANSWERING SERVICE BUT NEVER MADE IT TO THE PHYSICIAN. CONSULT CALLED TO DAY AND PHYSICIAN WILL BE BY LATER THIS AFTERNOON
--- NOTE | 2019-03-18 16:43 | NUR ---
PT REMAINS INTUBATED BUT ALERT AND ABLE TO COMMUNICATE WITH HER HANDS AND WRITING. CM FOLLOWING REGARDING DC PLANNING. ValdoN IS FOLLOWING WELL FACUNDO.
[2019-03-19] VITALS (24 sets, daily range): BP systolic 110–144; BP diastolic 48–82
--- NOTE | 2019-03-19 05:41 | NUR ---
PT AOX4, FOLLOWS COMMANDS. VSS AFEBRILE. TOLERATING VENT SETTINGS. NO SIGNS OF DISTRESS WHILE AT REST. DENIES PAIN. OG IN PLACE, TF ONGOING. ADEQUATE URINE OUTPUT. ABD INCISION OPEN TO AIR, STER-STRIPES IN PLACE. REFUSES TURNS AND ORAL CARE OCCASIONALLY. NO COMPLAINS PRESENTLY. WILL CONTINUE TO MONITOR.
[2019-03-19 05:50] LABS: ABSOLUTE NEUTROPHILS 11.8 thou/uL (1.4-8.2); BASOPHILS 0.1 % (0.0-2.0); EOSINOPHILS 0.2 % (0.0-3.0); HEMATOCRIT 31.7 % (37.0-47.0); HEMOGLOBIN 10.9 gm/dL (12.0-15.0); LYMPHOCYTES 9.6 % (24.0-44.0); MCH 32.5 pg (26.0-34.0); MCHC 34.5 g/dL (28.0-37.0); MCV 94.3 fL (80.0-100.0); MONOCYTES 4.7 % (1.0-8.0); PLATELET COUNT 307 thou/uL (150-400); POLYS 85.4 % (36.0-66.0); RBC 3.36 mil/uL (4.20-5.00); RDW 14.8 % (10.5-14.5); WBC 13.9 thou/uL (4.0-11.0)
[2019-03-19 05:59] LABS: CALCIUM 8.9 mg/dL (8.5-10.1); CREATININE 0.7 mg/dL (0.6-1.0); POTASSIUM 4.1 mmol/L (3.5-5.1)
--- NOTE | 2019-03-19 12:46 | NUR ---
VASCULAR ACCESS TEAM. R TL PICC NOT FUNCTIONING. CXR SHOWS LINE IN R BRACHIOCEPHALIC VEIN. PATIENT CONSENTED TO HAVE MIDLINE PLACED IN L ARM. L BASILIC VEIN WIDELY PATENT ON U.S ASSESSMENT. PATIENT PREPPED AND DRAPED IN NORMAL STERILE FASHION. LIDOCAINE 1% 4CC GIVEN SUB Q. VEIN CANNULATED WITH ONE ATTEMPT. GUIDEWIRE ADVANCED EASILY. VEIN DILATED. GUIDEWIRE REMOVED INTACT. 4Fr 12CM MIDLINE INSERTED WITHOUT DIFFICULTY TO 12CM INTERNAL AND 0CM EXTERNAL. LINE FLUSHES AND DRAWS EASILY. PATIENT TOLERATED PROCEDURE WELL. MIDLINE RELEASED FOR IMMEDIATE USE TO RN. 46CM TL PICC REMOVED FROM R ARM WITHOUT DIFFICULTY. TEGARDERM AND GAUZE APPLIED TO SITE.
--- NOTE | 2019-03-19 14:26 | NUR ---
REMAINS ON VENT. STARTED ON HIGH DOSE STEROIDS TODAY AND PER PULM WILL ASSESS FOR EXTUBATION IN ANOTHER 24 HRS. PULM WOULD FAVOR EXTUBATION IN OR WITH ANESTHESIA BACK UP THIS IS SECOND INTUBATION AND PT HAD STRIDOR AFTER LAST EXTUBATION. POSSIBILITY MAY NEED TRACH PER PULM/ENT PER FIBER LOCKING SUPERVISOR. DC PLAN HAS BEEN ACUTE REHAB ON 5N VS [facility] SKILLED REHAB. IF NEEDS TRACH, WOULD POSSIBLY NEEDS LTACH.
--- NOTE | 2019-03-19 17:50 | NUR ---
END OF SHIFT NOTE. PT FAILED AIR FLOW STUDY TODAY. PLAN HIGH DOSE STEROIDS AND TRY AGAIN IN 24 HOURS. VSS. TOLORATING TUBE FEEDING. LIQUID BMS X 2. PICC OUT OF POSITION AND HAD TO BE DCD. NEW MIDLINE PLACED RAC PER IV THERAPY. PT PROGRESSING TOWARDS GOAL, ECT UNABLE TO EXTUBATE.
[2019-03-20] VITALS (43 sets, daily range): BP systolic 91–195; BP diastolic 32–167
--- NOTE | 2019-03-20 04:40 | NUR ---
AOX4. FOLLOW COMMANDS. VSS. AFEBRILE. C/O RIGHT NECK PAIN, REFUSED PAIN MEDS. TOELRATING VENT SETTINGS, REFUSES TO BE SUCTIONED OFTEN. MID ABD INCISION OPEN TO AIR, STERI-STRIPES IN PLACE. BM TODAY. TOLERATING TURNS. URINE OUTPUT NOTED. WILL CONTINUE TO MONITOR.
[2019-03-20 05:30] LABS: CALCIUM 8.9 mg/dL (8.5-10.1); CREATININE 0.6 mg/dL (0.6-1.0)
--- NOTE | 2019-03-20 10:18 | NUR ---
FAXED CLINICAL UPDATE TO [facility] ON SUNDAY 03/18 SPOKE WITH SMILEY IN ADM SHE RECEIVED UPDATE. DCP TO FOLLOW.
--- NOTE | 2019-03-20 14:59 | NUR ---
Supportive visit provided at bedside. Pt remains in ICU on the vent. She is a&ox4 and able to converse by writing. She was able to express that she is trying to wean off the vent but will likely need a trach next week if she is not able too. She requested help faxing a letter to her [employer]. Letter faxed and a confirmation sheet provided to the pt. She reports that she is communicating with her son, her sister in law Francy and friends via text message. She is interested in completing a dpoa for health care and would like Francy to make decisions for her if she can not. Document provided to the pt and reviewed with her. Notary services provided by cm. A copy of the document was placed on the medical record. The pt notes that her friends are checking on her son while she is in the hospital. She has not told him about her possible surgery. Support provided. She is keeping Francy updated on her medical situation. Will follow.
[2019-03-20 15:04] LABS: BE(vivo) 1.7 mmol/L (-2 to +3); HCO3 25.6 mmol/L (22.0-26.0); PO2 64.9 mmHg (80.0-100.0); pH 7.447 (7.360-7.450); sO2 93.6 % (92.0-98.0)
[2019-03-20 16:05] LABS: ABSOLUTE NEUTROPHILS 16.7 thou/uL (1.4-8.2); BASOPHILS 0.3 % (0.0-2.0); HEMATOCRIT 33.9 % (37.0-47.0); HEMOGLOBIN 11.1 gm/dL (12.0-15.0); LYMPHOCYTES 3.7 % (24.0-44.0); MCHC 32.7 g/dL (28.0-37.0); MCV 94.8 fL (80.0-100.0); MONOCYTES 5.6 % (1.0-8.0); POLYS 90.4 % (36.0-66.0); RBC 3.57 mil/uL (4.20-5.00); RDW 14.9 % (10.5-14.5); WBC 19.9 thou/uL (4.0-11.0)
[2019-03-20 16:45] LABS: PLATELET COUNT 262 thou/uL (150-400)
--- NOTE | 2019-03-20 17:49 | NUR ---
END OF SHIFT NOTE. PT CPAP TRIAL TODAY. DID VERY WELL. SEE WEANING PARAMETERS. NO AIR LEAK NOTED PER RT. PLAN TO GO TO OR TOMMORROW AND EXTUBATE, SCOPE AND POSSIBLE TRACH. HR SLIGHTLY ELEVATED. DR MARTIN NOTIFIED. ORDERS GIVEN FOR ATIVAN BUT PT WANTS TO WAIT UNTIL BEDTIME TO TAKE.
[2019-03-21] VITALS (13 sets, daily range): BP systolic 106–152; BP diastolic 45–66
[2019-03-21 06:23] LABS: CALCIUM 8.6 mg/dL (8.5-10.1); CREATININE 0.7 mg/dL (0.6-1.0); POTASSIUM 4.1 mmol/L (3.5-5.1)
--- NOTE | 2019-03-21 07:31 | NUR ---
PT INTUBATED AND ON VENT. NO SEDATION, PT IS A&O, AND KNOWS HER LIMITATIONS. PT WRITES TO COMMUNICATE NEEDS. PT HAS BEEN NPO SINCE [place] FOR OR TODAY. ONE DOSE OF ATIVAN GIVEN LAST NIGHT, SO THAT PT COULD REST PRIOR TO OR TODAY. CONSENT NEEDS TO BE SIGNED FOR OR TODAY, BUT PT STILL NEEDS TO TALK WITH SURGEON. PT IS PROGRESSING. WILL CONTINUE TO MONITOR.
[2019-03-21 10:24] LABS: BE(vivo) 3.7 mmol/L (-2 to +3); HCO3 27.9 mmol/L (22.0-26.0); PO2 78.1 mmHg (80.0-100.0); pH 7.451 (7.360-7.450); sO2 96.1 % (92.0-98.0)
--- NOTE | 2019-03-21 17:12 | NUR ---
EXTUBATED TODAY MIDDAY AND CURRENTLY ON 15 LITERS NRB MASK.
--- NOTE | 2019-03-21 19:21 | NUR ---
PATIENT EXTUBATED IN OR BY PHYSICIAN THIS SHIFT. RETURNED TO ROOM ON NONREBREATHER WITH O2 SATS 98-100% ABLE TO TITRATE TO FACE SHIELD 40% BY END OF THIS SHIFT. PATIENT MAINTAINED STRICT NPO ORDERED. ORAL CARE PROVIDED. PATIENT REPORTS NAUSEA, IV MEDS GIVEN PER ORDERS, REPORTS SOME RELIEF. PHYSICIAN CALLED AND ORDERS RECEIVED TO CHANGE PO MEDS TO IV WHEN AVAILABLE. PATIENT DENIES PAIN. ALLISON PATENT & IN PLACE WITH SECUREMENT DEVICE. PATIENT TURNING SELF IN BED, PATIENT ATTEMPTING TO MAINTAIN MUCH MUSCLE STRENGTH POSSIBLE. FALL PRECAUTIONS REMAIN IN PLACE.
[2019-03-22] VITALS (24 sets, daily range): BP systolic 91–132; BP diastolic 37–100
--- NOTE | 2019-03-22 05:09 | NUR ---
PT EXTUBATED YESTERDAY AND NOW ON FACE SHIELD AT 40% FIO2. PT MAINTAINING ADEQUATE O2 SAT THROUGHOUT THE NIGHT, WITH SOME INCIDENCES OF O2 SAT DROPPING TO 80s, BUT PT WOULD QUICKLY RECOVER. PT ON VOCAL REST FOR 48 HRS POST EXTUBATION. PT HAS INTERMITTENTLY HAD A HOARSE COUGH. PT C/O NAUSEA AT BEGINNIG OF THE NIGHT. ZOFRAN GIVEN EARLIER AND NOW PT DENIES NAUSEA. PT HAS REMAINED NPO SINCE EXTUBATION. WILL CONTINUE TO MONITOR.
[2019-03-22 05:18] LABS: CALCIUM 8.3 mg/dL (8.5-10.1); CREATININE 0.7 mg/dL (0.6-1.0); POTASSIUM 4.2 mmol/L (3.5-5.1)
[2019-03-22 05:58] LABS: ABSOLUTE NEUTROPHILS 9.5 thou/uL (1.4-8.2); BASOPHILS 0.1 % (0.0-2.0); EOSINOPHILS 0.1 % (0.0-3.0); HEMATOCRIT 31.2 % (37.0-47.0); HEMOGLOBIN 10.3 gm/dL (12.0-15.0); LYMPHOCYTES 4.6 % (24.0-44.0); MCH 31.4 pg (26.0-34.0); MCV 95.2 fL (80.0-100.0); PLATELET COUNT 288 thou/uL (150-400); POLYS 91.2 % (36.0-66.0); RBC 3.28 mil/uL (4.20-5.00); RDW 15.4 % (10.5-14.5); WBC 10.5 thou/uL (4.0-11.0)
--- NOTE | 2019-03-22 08:56 | HC ---
[facility] Vishal S[address]chez [place] [address] CONSULTATION Name: LAURA CROFT Room #: 246-P ADM IN M.R.#: [id number] Admission: 03/05/19 Attend Phys: Marcus Comer MD Discharge: Date of : 53 Report #: [id number] THIS REPORT FOR: //name// CC: Marcus Comer DATE OF SERVICE: 03/19/2019 REASON FOR CONSULTATION: Acute on chronic respiratory distress. HISTORY OF PRESENT ILLNESS: The patient is a 64-year-old female who had a large hernia repair procedure done in early February. Postoperatively, she was hypotensive and had a slow recovery. During her stay, she was intubated for a short period of time. Instead of being discharged to prison, she was discharged home due to the patient's refusal. She was discharged on 03/02/2019. She returned to the Emergency Room with nausea, vomiting and having some dyspnea. After being admitted, she was found to be in progressive dyspnea, may have had an aspiration event and required intubation. She was therefore evaluated by GI and followed by her general surgeon. She was doing well after she was weaned and extubated on 03/10/2019. She was placed on bronchodilator therapy and continued on IV antibiotics for her aspiration pneumonia. She did well on low-flow oxygen and seemed to be doing well the following several days; however, on 03/13/2019, she was noted to have increasing cough and wheezing. She became dyspneic with progressive respiratory failure. She had to be reintubated on 03/14/2019 and it was noted by Dr. Echols during the reintubation that there were no abnormalities noted of the supraglottic area or in the true vocal cords. She had no difficulty passing the endotracheal tube. Since then, she has remained on ventilator status, although she is presently only on 38% FiO2. She had a CT scan of her neck performed with the endotracheal tube in place and gross abnormalities noted in the area. Dr. Echols discussed with Dr. Milton Ball this past Monday about possibility of an ENT help; however, at that time, no indication for further intervention was recommended because she was still intubated. I have been asked to assist in managing her respiratory compromise. Of note, the patient has a history of sleep apnea with the use of home CPAP. PAST MEDICAL HISTORY: Also, noted for multiple intra-abdominal infections, multiple abdominal hernia repairs, ovarian cancer with previous hysterectomy, osteoarthritis, adenotonsillectomy. Known history of depression, hypertension, type 2 diabetes. PAST SURGICAL HISTORY: Notable as above and also includes cholecystectomy and appendectomy. MEDICATIONS: Noted on the patient's hospital chart. REVIEW OF SYSTEMS: Deferred, patient's intubated, nonresponsive. [address] [address] CONSULTATION Name: LAURA CROFT Room #: 246-P [facility] IN M.R.#: [id number] Admission: 03/05/19 Attend Phys: Marcus Comer MD Discharge: Date of : 53 Report #: [id number] PHYSICAL EXAMINATION: GENERAL: Intubated on the ventilator. VITAL SIGNS: As noted on the patient's chart. HEENT: No abnormalities were noted within the oral cavity, oropharynx with limited exam. The hypopharynx and larynx were not examined due to intubation. The patient is noted to be morbidly obese and has a very short neck. No neck masses were noted. IMPRESSION: Acute on chronic hypoxic respiratory failure in a morbidly obese patient with history of sleep apnea, diabetes, status post abdominal hernia repair approximately 4 weeks ago. She also has a recent history of probable aspiration pneumonia with an unknown mental status at this time. As she is now down to the point where Pulmonary is ready to consider extubation to prevent post-extubation stridor. I would recommend a 24-hour course of IV steroids preferentially dexamethasone 10 mg IV every 6 hours for 24 hours and then perform a formal cuff leak test, if she has positive cuff leak test, she will be at high risk for post-extubation stridor. If the cuff test is negative, her risk for post-extubation stridor would be extremely limited. I have discussed this with Dr. Chand and if her cuff leak test is positive, I do think that extubation can still be tried, but would need to be done in a controlled situation with anesthesia available to reintubate her should she fail acutely, with the knowledge that last time she had failed more chronically after more than 48 hours post-extubation. Thank you for this consultation. We will follow along with you. <ELECTRONICALLY SIGNED> By: Johnny Hooper MD 03/22/19 0856 [id number] Johnny Hooper MD /nt
--- NOTE | 2019-03-22 12:13 | NUR ---
Following for dc planning. Clinical info reviewed. Extubated 04/21 with plan to start lightly using voice today and may progress as tolerated over next 24-[address] prior to any intake, NPO now. Therapies remain on hold and will re initiate when medically cleared to do so. 5N following and plan remains 5N when medically stable. Plan B would be skilled rehab at [facility]. no weekend dc planned.
--- NOTE | 2019-03-22 18:39 | NUR ---
END OF SHIFT NOTE. PT NOW ON ROOM AIR, TOLORATING WELL. VSS. RESTING VOICE, NPO, LUNGS CLEAR AND DIM. PT PROCEDING TOWARDS GOALS.
[2019-03-23] VITALS (25 sets, daily range): BP systolic 95–163; BP diastolic 36–137
[2019-03-23 05:20] LABS: ABSOLUTE NEUTROPHILS 7.6 thou/uL (1.4-8.2); BASOPHILS 0.1 % (0.0-2.0); HEMATOCRIT 31.1 % (37.0-47.0); HEMOGLOBIN 10.2 gm/dL (12.0-15.0); LYMPHOCYTES 6.9 % (24.0-44.0); MCHC 32.9 g/dL (28.0-37.0); MONOCYTES 5.6 % (1.0-8.0); PLATELET COUNT 263 thou/uL (150-400); POLYS 87.4 % (36.0-66.0); RBC 3.31 mil/uL (4.20-5.00); WBC 8.7 thou/uL (4.0-11.0)
[2019-03-23 05:54] LABS: CALCIUM 8.1 mg/dL (8.5-10.1); CREATININE 0.7 mg/dL (0.6-1.0)
--- NOTE | 2019-03-23 07:00 | NUR ---
PT ON RA INTIALLY, BUT PT'S O2 SAT BEGAN TO DROP SHORTLY AFTER SHIFT CHANGE AND PT WAS PLACE ON 2L O2 NC. PT REMAINED ON 2L FOR THE REST OF THE NIGHT. PT DENIES SOA. PT NAUSEOUS AT TIMES, ZOFRAN GIVEN X1 AND COMPAZINE GIVEN X1. PT ON STRICT NPO AND VOCAL REST SINCE EXTUBATION ON 03/21. WILL CONTINUE TO MONITOR.
[2019-03-24] VITALS (21 sets, daily range): BP systolic 88–153; BP diastolic 30–105
--- NOTE | 2019-03-24 07:04 | NUR ---
END OF SHIFT SUMMARY: Pt stable overnight. Around 0100 pt felt throat spasm, relieved with mouth swabs. Pt was able to swallow anti-depressant and Lyrica using small amount of applesauce followed by a few sips of water. Abdominal incision clean, dry, well approximated with steri-strips. Zofran given for nausea x1 with adequate relief. O2 sat > 92% on 2 L. Urine output adequate.
[2019-03-25] VITALS (19 sets, daily range): BP systolic 78–121; BP diastolic 41–70
[2019-03-25 06:23] LABS: ABSOLUTE NEUTROPHILS 7.7 thou/uL (1.4-8.2); BASOPHILS 0.2 % (0.0-2.0); EOSINOPHILS 1.2 % (0.0-3.0); HEMATOCRIT 33.8 % (37.0-47.0); HEMOGLOBIN 11.1 gm/dL (12.0-15.0); LYMPHOCYTES 5.8 % (24.0-44.0); MCH 31.1 pg (26.0-34.0); MCV 94.4 fL (80.0-100.0); MONOCYTES 4.4 % (1.0-8.0); PLATELET COUNT 255 thou/uL (150-400); POLYS 88.4 % (36.0-66.0); RBC 3.58 mil/uL (4.20-5.00); RDW 15.3 % (10.5-14.5); WBC 8.7 thou/uL (4.0-11.0)
[2019-03-25 06:38] LABS: CALCIUM 8.1 mg/dL (8.5-10.1); CREATININE 0.7 mg/dL (0.6-1.0); POTASSIUM 4.1 mmol/L (3.5-5.1)
--- NOTE | 2019-03-25 07:44 | NUR ---
SEE [employer] FOR ASSESSMENT. PROGRESSING TOWARD GOALS. NO RESP DISTRESS OR SOA. OCC. CONGESTED COUGH. NO STRIDOR. 02SAT WNL. CONT ENC C/DB. VOICE REMAINS HOARSE. STEPHAN PO FLUIDS. GOOD URINE OUTPUT. CONT PLAN OF CARE
[2019-03-26] VITALS (7 sets, daily range): BP systolic 104–148; BP diastolic 32–72
--- NOTE | 2019-03-26 02:02 | NUR ---
SEE [employer] FOR ASSESSMENT. PT WATCHING TV MOST OF NOC. 02SAT WNL ON RA. LOOSE COUGH NOTED, NON PRODUCTIVE. LS-CLEAR. NO RESP DISTRESS. DENIES SOA. PT AMBULATED TO FOR TRANSFER TO CCU 219. ASSIST X2 WITH GAIT BELT. DOES C/O OF NAUSEA WITH MOVEMENT AT TIMES. ZOFRAN GIVEN ORDERED. PT CONT TO PROGRESS TOWARD GOALS. CONT PLAN OF CARE. REPORT GIVEN TO RYANN VIERA CCU.
--- NOTE | 2019-03-26 05:14 | NUR ---
ARRIVED FROM ICU JUST PRIOR TO 0200. SETTLED INTO ROOM, INITIAL ASSSESSMENT PERFORMED. PATIENT COMFORTABLE ON ROOM AIR, PRIOR SURGICAL INCISION WELL APPROXIMATED, HEALING. ALLISON IN PLACE BUT ABLE TO DISCONTINUE NOW THAT SHE IS IN A LOWER BED. ABLE TO REACH BSC. FALL PRECAUTIONS IN PLACE.
--- NOTE | 2019-03-26 14:45 | NUR ---
FAXED CLINICAL UPDATE TO [facility] SPOKE WITH DENISE IN ADM SHE RECEIVED UPDATE BUT NEEDED ORIGINAL REFERRAL REFAXED. THE DON IS WANTING TO REVIEW ALL INFORMATION THEN WILL MAKE DECISION. DCP TO FOLLOW.
--- NOTE | 2019-03-26 17:08 | NUR ---
[facility] accepting of patient for dc.
--- NOTE | 2019-03-26 18:20 | NUR ---
ASSUMED DOCUMENTED, ALERT AND ORIENTED. VSS AND AFEBRILE. SR ON THE MONITOR ALLISON DISCONTINUED AND PATIENT VOIDING SMALL AMOUNT OF BLOOD TINGED URINE. PATIENT SHOWERED AND WALKED PT IN THE ROOM. PROGRESSING TOWARD GOALS AND WILL CONTINUE WITH POC.
[2019-03-27 02:51] LABS: ABSOLUTE NEUTROPHILS 10.9 thou/uL (1.4-8.2); BASOPHILS 0.2 % (0.0-2.0); EOSINOPHILS 1.3 % (0.0-3.0); HEMATOCRIT 32.3 % (37.0-47.0); HEMOGLOBIN 10.7 gm/dL (12.0-15.0); LYMPHOCYTES 11.5 % (24.0-44.0); MCH 31.1 pg (26.0-34.0); MCV 94.3 fL (80.0-100.0); MONOCYTES 5.6 % (1.0-8.0); PLATELET COUNT 252 thou/uL (150-400); POLYS 81.4 % (36.0-66.0); RBC 3.42 mil/uL (4.20-5.00); RDW 15.3 % (10.5-14.5); WBC 13.4 thou/uL (4.0-11.0)
[2019-03-27 03:02] LABS: CALCIUM 8.6 mg/dL (8.5-10.1); CREATININE 0.7 mg/dL (0.6-1.0); POTASSIUM 3.8 mmol/L (3.5-5.1)
[2019-03-27 04:08] VITALS: BP 103/61
--- NOTE | 2019-03-27 04:46 | NUR ---
ASSESSMENTS CHARTED. PATIENT UP WITH STANDBY ASSIST AND WALKER TO BATHROOM. ALLISON IS OUT, GRAYSON BLOOD IS SEEN UPON WIPING, DIMINISHED AMOUNT WITH TIME. VITALS STABLE. FALL PRECAUTIONS IN PLACE. DENIES PAIN. PLAN OF CARE TO CONTINUE TREATMENT WITH RESPIRATORY SUPPORT.
[2019-03-27] MEDS ORDERED: HYDROCODON-ACE1 EAC7 PO (07:23)
[2019-03-27] MEDS ORDERED: PREDNISONE 20 M20 MG PO (07:23)
[2019-03-27] MEDS ORDERED: ENOXAPARIN40 MG/0.1 SUBQ (07:23)
[2019-03-27] MEDS ORDERED: LEVAQUIN 500 M50012 PO (07:23)
[2019-03-27] MEDS ORDERED: MIRALAX17 GM PO (07:23)
[2019-03-27] MEDS ORDERED: CYCLOBENZAPRINE5 MG PO (07:23)
[2019-03-27] MEDS ORDERED: IPRAT-ALBUT 0.5-3 ML INH (07:23)
[2019-03-27] MEDS ORDERED: FLONASE 0.05%50 MCG NASAL (07:23)
[2019-03-27] MEDS ORDERED: PROTONIX40 M1 PO (07:23)
[2019-03-27] MEDS ORDERED: METFORMIN HCL500 MG PO (07:23)
[2019-03-27] MEDS ORDERED: LYRICA 50 MG50 MG PO (07:23)
[2019-03-27] MEDS ORDERED: EFFEXOR XR75 MG PO (07:23)
[2019-03-27 08:00] VITALS: BP 122/56
--- NOTE | 2019-03-27 10:52 | NUR ---
Met with patient and discussed she is accepted to transfer to our acute rehab. Patient pleased to dc to acute rehab. She reports her son has 2 weeks off of work. She reports her sister in law who is like her sister will arrange UBER for her son the following week he returns to work. Plan dc to 5[facility] today.
--- NOTE | 2019-03-27 10:56 | NUR ---
ASSUMED CARE AT SHIFT CHANGE, ALERT AND ORIENTED X4. VSS AND SR ON THE MONITOR. DENEIES ANY DISCOMFORT, DISCHARGE MEDICATIONS AND INSTRUCTIONS GIVEN TO PATIENT AND SHE VARBALIZED UNDERSTANDING. REPORT GIVEN TO MAXIMILIANO TAMAYO AND PATIENT TRANFERED TO 5[facility].
== END 2019-03-27 11:21 | DRG 870 ==
LOC: ER 07:57 → EROBS 15:46 → ICU 15:46 → 4E 15:46 → ICU 03-07 09:00 → 2N 03-12 07:11 → ICU 03-13 19:06 → 2N 03-26 02:15
PROVIDERS: Anesthesiology; Emergency Medicine; Internal Medicine Gastroenterology; Internal Medicine Pulmonary Disease; Nurse Practitioner Adult Health; Pediatrics; ADMIT Internal Medicine
PROC: 5A1945Z Respiratory Ventilation, 24-96 Consecutive Hours (ICD-10-PCS; 2019-03-07)
PROC: 0BH18EZ Insertion of Endotracheal Airway into Trachea, Via Natural or Artificial Opening Endoscopic (ICD-10-PCS; 2019-03-07)
PROC: 02HV33Z Insertion of Infusion Device into Superior Vena Cava, Percutaneous Approach (ICD-10-PCS; 2019-03-07)
PROC: 5A1955Z Respiratory Ventilation, Greater than 96 Consecutive Hours (ICD-10-PCS; principal; 2019-03-13)
PROC: 5A09357 Assistance with Respiratory Ventilation, Less than 24 Consecutive Hours, Continuous Positive Airway Pressure (ICD-10-PCS; principal; 2019-03-13)
PROC: 0BH17EZ Insertion of Endotracheal Airway into Trachea, Via Natural or Artificial Opening (ICD-10-PCS; principal; 2019-03-13)
PROC: 02PYX3Z Removal of Infusion Device from Great Vessel, External Approach (ICD-10-PCS; 2019-03-19)
PROC: 05HY33Z Insertion of Infusion Device into Upper Vein, Percutaneous Approach (ICD-10-PCS; 2019-03-19)
PROC: B54NZZA Ultrasonography of Left Upper Extremity Veins, Guidance (ICD-10-PCS; 2019-03-19)
DX: A41.9 Sepsis, unspecified organism (principal); J96.21 Acute and chronic respiratory failure with hypoxia; J69.0 Pneumonitis due to inhalation of food and vomit; J96.22 Acute and chronic respiratory failure with hypercapnia; A48.0 Gas gangrene; E43 Unspecified severe protein-calorie malnutrition; N17.9 Acute kidney failure, unspecified; K56.7 Ileus, unspecified; K46.9 Unspecified abdominal hernia without obstruction or gangrene; E66.01 Morbid (severe) obesity due to excess calories; M19.90 Unspecified osteoarthritis, unspecified site; I10 Essential (primary) hypertension; F32.9 Major depressive disorder, single episode, unspecified; E11.9 Type 2 diabetes mellitus without complications; G89.29 Other chronic pain; G47.33 Obstructive sleep apnea (adult) (pediatric); Z60.2 Problems related to living alone; K21.9 Gastro-esophageal reflux disease without esophagitis; D64.9 Anemia, unspecified; B96.1 Klebsiella pneumoniae [K. pneumoniae] as the cause of diseases classified elsewhere; E87.6 Hypokalemia; I95.9 Hypotension, unspecified; R13.10 Dysphagia, unspecified; T36.0X5A Adverse effect of penicillins, initial encounter; R00.1 Bradycardia, unspecified; D72.1 Eosinophilia; T38.0X5A Adverse effect of glucocorticoids and synthetic analogues, initial encounter; Z79.899 Other long term (current) drug therapy; Z79.84 Long term (current) use of oral hypoglycemic drugs; Z68.38 Body mass index [BMI] 38.0-38.9, adult; Z90.710 Acquired absence of both cervix and uterus; Z85.43 Personal history of malignant neoplasm of ovary; Z92.21 Personal history of antineoplastic chemotherapy; Z90.49 Acquired absence of other specified parts of digestive tract; Z90.89 Acquired absence of other organs; Z88.8 Allergy status to other drugs, medicaments and biological substances; Z99.81 Dependence on supplemental oxygen; Z87.440 Personal history of urinary (tract) infections; Y92.89 Other specified places as the place of occurrence of the external cause
CPT/HCPCS: 10078; 10081; 10084; 10203; 27000; 50101

== ENCOUNTER 2019-03-12 12:59 | Inpatient (IN) | payer OTHER ==
[~2019-03-12] VITALS: Ht 170.2 cm; Wt 117.3 kg
--- NOTE | 2019-03-22 08:57 | O ---
[facility] [address] [place] [address] OPERATIVE REPORT Name: LAURA CROFT Room #: PRE IN M.R.#: [id number] Admission: ������������������ Attend Phys: Joselo Mcnamara MD Discharge: ������������������ Date of : 53 Report #: [id number] THIS REPORT FOR: //name// CC: Marcus Mcnamara DATE OF SERVICE: 03/21/2019 PROCEDURE: Flexible laryngoscopy. ANESTHESIA: Topical, tetracaine and Afrin anesthesia through the nares. FINDINGS: Normal appearance to the nasal anatomy on the right side. The nasopharynx was free of any active secretions. Oropharynx is unremarkable. Hypopharynx reveals normal appearance to the base of the tongue. The vallecula was free of any edema. The laryngeal and lingual surfaces of the epiglottis appeared unremarkable. The piriform sinus mucosa was unremarkable. There was no edema of either true vocal folds. Both vocal folds appear to move normally without any sign of paralysis. The postcricoid area had minimal edema present. The scope was withdrawn. The patient tolerated the procedure well. ��������������������������������������������� <ELECTRONICALLY SIGNED> ���������������������������������������� By: Johnny Hooper MD ��������������������������������������������� 03/22/19 0857 [id number] 1345 Johnny Hooper MD /nt
[2019-03-27] MEDS ORDERED: METFORMIN HCL500 MG PO (07:23)
[2019-03-27] MEDS ORDERED: MIRALAX17 GM PO (07:23)
[2019-03-27] MEDS ORDERED: PROTONIX40 M1 PO (07:23)
[2019-03-27] MEDS ORDERED: CYCLOBENZAPRINE5 MG PO (07:23)
[2019-03-27] MEDS ORDERED: ENOXAPARIN40 MG/0.1 SUBQ (07:23)
[2019-03-27] MEDS ORDERED: PREDNISONE 20 M20 MG PO (07:23)
[2019-03-27] MEDS ORDERED: EFFEXOR XR75 MG PO (07:23)
[2019-03-27] MEDS ORDERED: LEVAQUIN 500 M50012 PO (07:23)
[2019-03-27] MEDS ORDERED: FLONASE 0.05%50 MCG NASAL (07:23)
[2019-03-27] MEDS ORDERED: HYDROCODON-ACE1 EAC7 PO (07:23)
[2019-03-27] MEDS ORDERED: IPRAT-ALBUT 0.5-3 ML INH (07:23)
[2019-03-27] MEDS ORDERED: LYRICA 50 MG50 MG PO (07:23)
[2019-03-27 11:48] VITALS: BP 142/72
[2019-03-27 11:55] VITALS: BP 142/72
--- NOTE | 2019-03-27 15:43 | NUR ---
PT ADMITTED TO AROUND 1145. HX OF ACUTE RESPIRATORY FAILURE AND INTUBATE AND EXTUBATED 3X PRIOR ADMISSION TO . SHE LIVES HOME AND CARE FOR HER ADOPTED SON WHO HAS ASPERGER. HAD RECENT ABD HERIA. PT ALERT AND ORIENTED X4. ABLE TO VOICE HER OWN NEEDS. ADMISSION ASSESSMENT DONE PER CHART. NO OPEN WOUND NOTED. OLD SCARS INCISION ON ABD VITOR. HEALING WELL. NO IV. VSS ON RA. LUNG SOUNDS CLEAR AND DEMINISHED. COUGH OCCASIONALLY. PT HAS SOME LOOSE STOOL ON MIRALAX BID. PT C/O HAVING NAUSEA AT TIME. DENIES PAIN. REPORTS HAVING INSOMIA IN THE HOSPITAL. NOTIFIED DR. BUSTAMANTE AND OBTAINED ORDER FOR PRN ZOFRAN, TRAZODONE. HE IS OK TO CHANGE MIRALAX TO PRN PER PT'S REQUESTS. ORIENTED PT TO THE UNIT. REVIEWED MEDS LIST WITH PT AND FAXED TO PHARMACY. PT ATE 100 OF LUNCH TRAY, PT IS ON REGULAR DIET, SHE IS VEGETERIAN. PT UP WITH SBA WITH A WALKER. HER GOAL HERE IS TO GET STRONGER, ABLE TO WALK BY HERSELF. DISCUSSED ABOUT REHAB SCHEUDULE. PT SIGNED CONSENTS. DR. URIBE, FLORI, AND ADELITA WAS CALLED AND NOTIFIED. OT CAME, TALKED TO PT AND GAVE PT A SHOWER. OFFERED SUPPORTIVE CARE. FALL PRECAUTION IN PLACE.
--- NOTE | 2019-03-27 15:57 | NUR ---
CLARIFY WITH DR. MARTIN THAT PT DENIES DIABETIC. DOCTOR D/C BLOOD SUGAR
[2019-03-27 19:33] VITALS: BP 111/64
--- NOTE | 2019-03-28 01:33 | NUR ---
PT ASSESSMENT DONE AND VSS. MEDS GIVEN WITH APPLESAUCE AND TOLERATED WELL. FALL PRECAUTIONS IN PLACE. SLEEP MED GIVEN AND WAS HELPFUL. ONE ASSIST, GAIT BELT WALKER TO BR. VOIDING WELL. WILL CONTINUE TO MONITOR.
[2019-03-28 06:02] LABS: HEMATOCRIT 30.4 % (37.0-47.0); MCH 31.7 pg (26.0-34.0); RBC 3.17 mil/uL (4.20-5.00); RDW 15.8 % (10.5-14.5); WBC 8.7 thou/uL (4.0-11.0)
[2019-03-28 06:35] LABS: CALCIUM 8.2 mg/dL (8.5-10.1); CREATININE 0.7 mg/dL (0.6-1.0); POTASSIUM 3.7 mmol/L (3.5-5.1)
[2019-03-28 07:15] VITALS: BP 106/69
--- NOTE | 2019-03-28 20:09 | NUR ---
Assumed care approx. 0700 this AM. Patient has had complaints of nausea and indigestion intermittently today. Patient making progress with therapies. New order obtained for pepcid this evening. Accuchecks order reinitiated per pt request by JASON Muhammad. Patient transferred to room 501 into the apartment space for transitional therapy. Patient progressing toward plan of care.
[2019-03-28 20:17] VITALS: BP 128/78
[2019-03-29 01:08] LABS: GLYCOHEMOGLOBIN (HGB A1C) 5.3 % (4.8-5.6)
--- NOTE | 2019-03-29 04:35 | NUR ---
ASSUMED CARE OF PT AT 1915. PT IS A&OX4. IS ON ROOM AIR. DENIES PAIN. IS STABLE. IS UP WITH 1 ASSIST, GB, WALKER. FALL PRECAUTIONS & HOURLY ROUNDING MAINTAINED. PT HAS HEALING SCAR ON ABD MIDLINE. PT REPORTED THAT SHE BECOMES NAUSEATED WITH PHYSICAL ACTIVITY. PT ALSO REPORTED THAT SHE HAD TO "DID MYSELF (BM) OUT TWICE TODAY. I AM NOT CONSTIPATED. I DON'T HAVE DIARRHEA, BUT MY STOOLS ARE LOOSE AND FOR THE LAST WEEK I HAVE NOT BEEN ABLE TO TELL WHEN I HAVE TO HAVE A BOWEL MOVEMENT OR WHEN I HAVE GONE. ETHEL MORALES TOLD ME THAT I HAD A BM THE OTHER DAY. I DIDN'T KNOW. WHEN I WENT THE OTHER DAY IT SMELLED, BUT IT WAS NOT SLIMMY". THIS NURSE INFOMRED PT THAT I WOULD COMMUNICATE HER CONCERNS TO THE DAY SHIFT NURSE TO RELAY TO THE DOCTOR FOR HER TO INFORM THE DOCTOR ALSO. THE PT HAS NOT HAD A BM THIS SHIFT. PT IS SLEEPING COMFORTABLY IN BED. IS ABLE TO TURN SELF. WEARS BREIFS FOR PROTECTION. CALL LIGHT WITHIN REACH. WILL CONTINUE TO MONITOR.
[2019-03-29 07:40] VITALS: BP 122/84
[2019-03-29 09:03] LABS: HEMATOCRIT 35.1 % (37.0-47.0); HEMOGLOBIN 11.3 gm/dL (12.0-15.0); MCH 30.8 pg (26.0-34.0); MCHC 32.2 g/dL (28.0-37.0); MCV 95.7 fL (80.0-100.0); RBC 3.67 mil/uL (4.20-5.00); RDW 15.7 % (10.5-14.5); WBC 9.7 thou/uL (4.0-11.0)
[2019-03-29 09:12] LABS: CALCIUM 8.6 mg/dL (8.5-10.1); CREATININE 0.8 mg/dL (0.6-1.0); POTASSIUM 3.3 mmol/L (3.5-5.1)
[2019-03-29 09:18] LABS: ALBUMIN 2.6 g/dL (3.4-5.0); TOTAL BILIRUBIN 0.4 mg/dL (<0.1-1.0); TOTAL PROTEIN 5.6 g/dL (6.4-8.2)
--- NOTE | 2019-03-29 10:00 | NUR ---
chart review. pt up laying in bed, ra, quiet, pleasant and able to make her needs know. intro to transition of care, hh and team meeting. per chart pt lives alone, has cane and walker. not home o2 and has needed it in past during hospital. had [facility] in past and referral for [facility] per surgeon. she was manage own medication and driving"/chart.
--- NOTE | 2019-03-29 12:52 | NUR ---
Nutrition: Pt transferred to rehab unit with critical illness myopathy, proximal weakness. S/P recent hernia repair with aspiration and required intubation due to stridor. Eats no meat other than fish. Will eat dairy, cheese, eggs etc. Drinks ensure max TID for additional protein. Intake past several days 100% of meals. Has lost large amount of weight over the past 2 years (> 100#). Noted current weight down 25# from earlier in february. Has had some fluid changes also. Follow trends. General surgery follows and has recommended pursueing bariatric surgery. On steroids but good BG control at present. Consider low nutrition risk with interventions in place.
--- NOTE | 2019-03-29 14:49 | EKG ---
[address] [address] ELECTROCARDIOGRAM REPORT Name: LAURA CROFT Room #: 501-A ADM IN M.R.#: [id number] ������������������ Admission: 03/27/19 ������������������ Attend Phys: Joselo Mcnamara MD Discharge: ������������������ Date of : 53 Report #: [id number] ����������������������������������������������������������������� [id number] THIS REPORT FOR: //name// [facility]ly [facility] Test Date: 2019-03-29 Test Time: 08:48:31 Pat Name: LAURA CROFT Department: Room: [facility] A Gender: F Leaf Stamper: COLLIN : 1955 Requested By: Joselo Mcnamara Order Number: [id number] MD: Johnson Marinelli Measurements Intervals [place] Rate: 82 P: 42 [place]: 168 QRS: -17 QRSD: 104 T: 23 QT: 344 QTc: 402 Interpretive Statements Sinus rhythm Borderline left axis deviation Compared to ECG 03/07/2019 08:37:00 Sinus tachycardia no longer present Prolonged QT interval no longer present Electronically Signed On 03-29-2019 14:48:54 CDT by Johnson Marinelli [email or web address] ��������������������������������������������� <ELECTRONICALLY SIGNED> ���������������������������������������� By: Johnson Marinelli MD ��������������������������������������������� 03/29/19 1448 7 Johnson Marinelli MD /GERA
[2019-03-29 19:30] VITALS: BP 108/49
--- NOTE | 2019-03-29 19:57 | NUR ---
ASSUMED CARE OF PT AT 0715. PT IS A&OX4. HR AT START OF SHIFT 131 APICALLY REPORTED NAUSEA, LOOSE STOOLS, DIZZINESS. NAUSEA MEDICAITONS GIVEN. RECHECKED WHEN AT REST ABOUT 1 HOUR LATER, WAS 100 WITH 2-3 SKIPPED BEATS NOTED, CONTINUED REPORTS OF NAUSEA, LOOSE STOOLS, AND DIZZINESS. PROVIDER MADE AWARE OF EPISODE, STAT ORDERS FOR EKG, TROPONIN, CBC, CMP, HOLD THERAPIES. POTASSIUM NOTED TO BE 3.3 ORDERS FOR PO REPLACEMENT, OTHER FINDING UNREMARKABLE. STOOL SAMPLE OBTAINED AND SENT FOR C-DIFF TESTING, RESULTS NEGATIVE. ORDERS FOR GI CONSULT, GI ADDED MEDICAITON ORDERS, WOULD LIKE TO DO ENDOSCOPY, WILL NEED AUTHORIZATION AND NOTIFY [facility]. PT ABLE TO PARTICIPATE WITH THERAPIES TOLERATED THIS AFTERNOON, NAUSEA TREATED WITH PO MEDICAITONS. NO COMPLAINTS OF PAIN. ACCU CHECKS ACHS. PT EDUCATED ABOUT MANAGING ACID REFLUX AND INDIGESTION. PT IS IN BED, FALL PRECAUTIONS IN PLACE AND NURSING WILL CONTINUE TO MONITOR.
--- NOTE | 2019-03-29 22:36 | NUR ---
ASSUMED CARE OF THE PT AT 191 PM. ALERT ET ORIENTED X 3. MAKES NEEDS KNOWN. WALKS WITH A STEADY GAIT, USING A WALKER, SBA x 1. HEART RATE REGULAR, LUNGS CLEAR BILATREALLY, RESP., EVEN, AND UNLABORED. +BS HEARD IN ALL 4 QUADRANTS. ABD SOFT ET NONTENDOR. +PP BILATERALLY. C/O OF NAUSEA, MEDICATED WITH ZOFRAN PRESCRIBED. DENIES PAIN AT THIS TIME.
[2019-03-30 04:38] LABS: HEMATOCRIT 31.4 % (37.0-47.0); HEMOGLOBIN 10.3 gm/dL (12.0-15.0); MCH 31.5 pg (26.0-34.0); MCHC 32.7 g/dL (28.0-37.0); MCV 96.2 fL (80.0-100.0); RBC 3.27 mil/uL (4.20-5.00); RDW 16.2 % (10.5-14.5); WBC 10.1 thou/uL (4.0-11.0)
[2019-03-30 04:42] LABS: CALCIUM 8.3 mg/dL (8.5-10.1); CREATININE 0.6 mg/dL (0.6-1.0); POTASSIUM 4.2 mmol/L (3.5-5.1)
--- NOTE | 2019-03-30 08:36 | HC ---
[facility] [place] [address] CONSULTATION Name: LAURA CROFT Room #: 501-A [facility] IN ..#: [id number] Admission: 03/27/19 ������������������ Attend Phys: Joselo Mcnamara MD Discharge: ������������������ Date of : 53 Report #: [id number] THIS REPORT FOR: //name// CC: Marcus Mcnamara DATE OF SERVICE: 03/28/2019 HISTORY OF PRESENT ILLNESS: The patient is a 64-year-old female who was transferred from [facility] to inpatient rehabilitation. The patient was admitted initially to the hospital for fixation of a very large ventral hernia that was carried on and after that the patient discharged home to come back with increasing fatigue and cough. The patient was treated for pneumonia and unfortunately during her stay in the hospital, she had become lethargic and she had to be put on mechanical ventilation. Eventually, this was removed, but unfortunately she ended with the stridor and swelling of the vocal cords. For this reason, she was reintubated. The patient eventually was extubated and she was sent for rehabilitation. PAST MEDICAL HISTORY: Significant for the above-mentioned history of acute respiratory failure. The patient has a diagnosis of Stenotrophomonas pneumonia. The patient had a history of morbid obesity with 100-pound weight loss, metabolic syndrome, osteoarthritis, ovarian cancer in 2007 that was treated with hysterectomy and chemotherapy, cholecystectomy, appendectomy, abdominal hernia repair in 2008, 2009, 2010, 2011 and 2012, multiple abdominal wall infections and abdominal wall abscesses, tonsillectomy, hypertension, depression, obstructive sleep apnea and frequent nausea. MEDICATIONS: Reviewed and reconciled. ALLERGIES: LISINOPRIL. SOCIAL HISTORY: The patient denies any history of smoking or alcohol use. The patient denies any drug use. FAMILY HISTORY: Noncontributory. REVIEW OF SYSTEMS: The patient is sitting up in a chair. She denies any headache, blurred vision, runny nose, sore throat, cough, chest pain, shortness of breath or palpitation. She continues to have intermittent nausea without any vomiting. The patient has been having some loose stool, but she is not having any abdominal pain. The patient denies any pain in the arms or legs. PHYSICAL EXAMINATION: VITAL SIGNS: Showed temperature of 36.7, pulse 78, respirations 20, blood pressure 111/64. [address] [address] CONSULTATION Name: LAURA CROFT Room #: 501-A [facility] IN .R.#: [id number] Admission: 03/27/19 ������������������ Attend Phys: Joselo Mcnamara MD Discharge: ������������������ Date of : 53 Report #: [id number] HEAD AND NECK: Unremarkable. NECK: Supple. LUNGS: Clear to auscultation. CARDIAC: S1, S2. ABDOMEN: Benign. Bowel sounds were positive. EXTREMITIES: Without any edema. LABORATORY DATA: The patient's CBC with diff showed white count of 8.7, hemoglobin 10.0, hematocrit 30.4, platelet count 220. Basic metabolic panel showed sodium of 140, potassium 3.7, chloride 107, bicarbonate 27, BUN 32, creatinine 0.7. ASSESSMENT AND PLAN: 1. Acute hypoxic and hypercapnic respiratory failure that has resolved. 2. Lower respiratory tract infection with Stenotrophomonas. 3. Generalized debility. 4. Hypertension, now hypotensive. 5. Nausea and diarrhea. 6. Recent ventral hernia repair. The patient was admitted to the hospital to the inpatient rehabilitation with the above-mentioned diagnoses. The patient to start physical therapy and occupational therapy. We will continue her medications. I will continue to monitor the patient during his stay in the hospital. ��������������������������������������������� <ELECTRONICALLY SIGNED> ���������������������������������������� By: Marcus Comer MD ��������������������������������������������� 03/30/19 0836 0801 0815 Marcus Comer MD /nt
[2019-03-30 09:34] VITALS: BP 132/75
--- NOTE | 2019-03-30 15:56 | NUR ---
ASSUMED CARE OF PT AT 0715. PT IS A&OX4 AND VITAL SIGNS ARE STABLE. PT REPORTED GENERALIZD PAIN AND NAUSEA AND WAS TREATED WTIH PO MEDICAITONS AND PT PARTICIPATED IN SCHEDULED THERAPIES. ACCU CHECKS ACHS, METFORMIN D/C'D. PT TAKES MEDICATIONS WHOLE IN APPLESAUCE. FALL PRECAUTIONS IN PLACE AND NURSING WILL CONTINUE TO MONITOR.
[2019-03-30 19:30] VITALS: BP 125/60
--- NOTE | 2019-03-31 03:04 | NUR ---
ASSUMED CARE AT 1900. PT IN BED RESTING COMFORTABLY. A+O X4. NO C/O PAIN. TOOK HS MEDS PRESCRIBED. UP TO BATHROOM WITH ASSISTDURING THE NIGHT, OTHERWISE SLEPT WELL THROUGH THE NIGHT.
[2019-03-31 10:35] VITALS: BP 125/70
[2019-03-31 19:05] VITALS: BP 113/71
--- NOTE | 2019-03-31 19:32 | NUR ---
ASSUMED CARE OF PT AT 0715. PT IS A&OX4 AND VITAL SIGNS ARE STABLE. PT REPORTS CONTINUED NAUSEA W/O VOMITING, MANAGED WITH PO MEDICAITONS. PT REPORTS GENERALIZED PAIN WHICH WAS MANAGED WITH PO MEDICATIONS. ACCU CHECKS ACHS, PO MEDICAITIONS DISCONTINUED YESTERDAY, BG AT DINNER ELEVATED, NURSING WILL CONTINUE TO MONITOR THROUGH NIGHT BG IS USUALLY LOW IN AM. AMBULATED WITH NURSING THROUGHOUT SHIFT. REPORTED SOB AND FEELING LIKE HER THROAT WAS "ENLARGED". O2 SATS 98% ON ROOM AIR, NO VISIBLE SWELLING, RT PROVIDED BREATHING TX AND PT REPORTED SOME RELIEF. FALL PRECAUTIONS IN PLACE AND NURSING WILL CONTINUE TO MONITOR.
--- NOTE | 2019-04-01 02:48 | NUR ---
ASSUMED CARE FROM DAY SHIFT, PT IN CHAIR C/O JAW PAIN , MEDICATION RELIEVED SOME PAIN BUT PAIN IS CONSISTANT , UP WITH WALKER GAIT STEADY, DISCUSSED PLAN OF CARE AND AGREEABLE , PAIN MEDICATION REQUESTED EVERY 4 HOURS . PT STATES PAIN STARTED THIS AM AND WILL TALK TO MD IN AM REGARDING THIS ISSUE. OTHERWISE PT RESTED WELL THROUGHOUT HOURLY ROUNDS.
[2019-04-01 07:15] VITALS: BP 118/83
[2019-04-01 08:12] VITALS: BP 118/83
--- NOTE | 2019-04-01 09:02 | NUR ---
ASSUMED CARE OF PT AT 0715. REPORTS DIDN'T SLEEP GOOD LAST NIGHT D/T JAW PAIN RATES PAIN 01/30, PRN HYDROCODONE GIVEN. NOTIFIED DR. BUSTAMANTE. WHO CAME TO SEE PT AND WILL PRECRIBE MEDICATION FOR HER JAW PAIN AND GAVE ORDER TO D/C ACCUCHECK. PT IS A&OX4 AND VITAL SIGNS ARE STABLE. PT REPORTS CONTINUED NAUSEA W/O VOMITING, MANAGED WITH PO MEDICAITONS. FALL PRECAUTIONS IN PLACE AND NURSING WILL CONTINUE TO MONITOR. PT IS WORKING WITH PHYSICAL THERAPIST NOW AND WILL EVALUATE TO SEE IF PT CAN BE M.I WITH A WALKER IN ROOM.
[2019-04-01 20:25] VITALS: BP 149/89
--- NOTE | 2019-04-01 22:18 | NUR ---
assumed care of the pt at 191 pm. alert et oriented x 3. makes needs known. has a midline incision on her lower abdomen which is healing, walks with a steady gait using a walker. sba. heart rate regular. lungs clear bilaterally, resp., even, and unlabored. +bs heard in all 4 quadrants. the pt is obese. bilateral feet are swollen. denies pain at this time. call light within reach.
--- NOTE | 2019-04-02 07:22 | NUR ---
ASSUME PT CARE AT 0700. RECEIVED REPORT FROM NIGHT NURSE THAT PT HAD SLEEPING AID AND HAD GOOD SLEEP. DISCUSSED WITH PT ABOUT CARE PLAN TODAY. DENIES PAIN. C/O NAUSEA AND REQUESTS FOR PRN ZOFRAN. MED GIVEN. DR. MARTIN IS HERE TO SEE PT. OT GIVE PT SHOWER NOW. GOALS TODAY IS ASK PT TO SEE IF SHE CAN BE M.I WITH A WALKER IN ROOM TO GO TO BATHROOM. OFFERED SUPPORTIVE CARE. ENCOURAGED PT TO VOICE HER NEEDS. WILL CONTINUE TO MONITOR.
[2019-04-02 07:49] VITALS: BP 138/78
--- NOTE | 2019-04-02 12:22 | NUR ---
team meeting, recommendation: pt is wanting edg with dilation will need it outpt. needs to be done outpt edg. pt is wanting to be mod I to bathroom in room. mod i in room, dc on with hh ( pt, ,ot, nursing). no dme needs.
--- NOTE | 2019-04-02 13:10 | NUR ---
dp sent home health referral to [facility] fax [phone]. Patient will neet pt, ot and nursing, anticipate discharge on 05/05/19.
[2019-04-02 19:10] VITALS: BP 147/87
--- NOTE | 2019-04-03 04:41 | NUR ---
ASSESSMENT: PT REMAIN ALERT AND ORIENT TIMES DOUR. UP SAFELY WITH WALKER TO BR WITH STEADY GAIT. MOD I IN ROOM. C/O TMJ, PRN PAIN MEDS PROVIDE ADEQUATE RELIEF. PT INFORMED TO CALL IF NEEDING ASSISTANCE. TOLERATING PO INTAKE. POSSIBLE DC TO HOME THIS MONDAY. DENIES NAUSEA. VSS, AFEBRILE. SLOW/STEADY PROGRESS TOWARDS DC GOALS, WILL CONTINUE TO MONITOR.
[2019-04-03 09:26] VITALS: BP 133/95
[2019-04-03 18:55] VITALS: BP 113/64
--- NOTE | 2019-04-03 20:52 | NUR ---
ASSUMED CARE OF PT AT 0715. PT IS A&OX4 AND VITAL SIGNS ARE STABLE. PT REPORTD RLE AND BACK PAIN WHICH WAS MANAGED WITH PO MEDICAITONS, PARTICIPATED IN SCHEDULED THERAPIES. CONTINUES TO REPORT NAUSA W/O EMESIS THIS SHIFT, MANAGED WITH PO MEDICAITONS. MOD I IN ROOM WITH FALL EDUCATION. FALL PRECAUTIONS IN PLACE AND NUSING WILL CONTINUE TO MONITOR.
--- NOTE | 2019-04-04 01:33 | NUR ---
PT ASSESSMENT DONE AND VSS. MOD I IN ROOM, STEADY. FEELING ANXIOUS ABOUT GOING HOME. SLEEPING MED WORKING WELL. FALL PRECAUTIONS. MEDS GIVEN ORDERED AND WELL TOLERATED. WILL CONTINUE TO MONITOR.
[2019-04-04 08:40] VITALS: BP 137/84
--- NOTE | 2019-04-04 16:35 | H ---
[facility] [address] [place] [address] HISTORY AND PHYSICAL Name: LAURA CROFT Room #: 501-A ADM IN M.R.#: [id number] Admission: 03/27/19 ������������������ Attend Phys: Joselo Mcnamara MD Discharge: ������������������ Date of : 53 Report #: [id number] THIS REPORT FOR: //name// CC: Marcus Mcnamara DATE OF SERVICE: 03/27/2019 HISTORY AND PHYSICAL/POST-ADMISSION PHYSICIAN EVALUATION HISTORY OF PRESENT ILLNESS: The patient is a 63-year-old white female who was originally admitted to [facility] on 03/05/2019. She presented to the Emergency Department from home with weakness. She had ventral hernia surgery repair. She became weak and unable to care for herself and was admitted for further evaluation. While hospitalized, her course was complicated by a code blue on 03/13/2019. She developed increasing stridor, needed recurrent intubations per report and ENT was involved as well as Pulmonary Medicine. She developed ksnxq-jl-jbhmvmr respiratory distress. She does have a history of morbid obesity. She also was noted to have a recent history of probable aspiration pneumonia. She was able to be extubated on 03/22/2019. Recommendation was for use of a light voice and to advance to normal as per ENT. She does have a history of insulin-dependent diabetes mellitus and was also treated for acute renal insufficiency and aspiration pneumonia. Continued in the ICU. She was noted to have significant weakness, especially proximal lower extremity weakness with difficulty getting up from a sitting position. It was felt that she had a critical illness myopathy, especially in her proximal lower extremity musculature. She was noted to have a significant decline from her premorbid functional status and has been admitted for acute in-hospital inpatient rehabilitation. PAST MEDICAL HISTORY: Includes osteoarthritis, ovarian cancer with hysterectomy and chemo, abdominal hernia repairs in 2008, 2009, 2010, 2011 and 2012, history of multiple abdominal infections, hypertension, depression, sleep apnea, non-insulin dependent diabetes mellitus, and colonoscopy. ALLERGIES: LISINOPRIL. MEDICATIONS: Please see the full medication listing. SOCIAL HISTORY: She lives at home with her adult son who is noted to have Asperger's. She was independent with ADLs and IADLs prior. She would use a cane on occasion, has a walker that she would rarely use if her arthritis is flaring. REVIEW OF SYSTEMS: No current complaints of chest pain, shortness of breath or abdominal discomfort. [address] [address] HISTORY AND PHYSICAL Name: LAURA CROFT Room #: 501-A [facility] IN ..#: [id number] Admission: 03/27/19 ������������������ Attend Phys: Joselo Mcnamara MD Discharge: ������������������ Date of : 53 Report #: [id number] PHYSICAL EXAMINATION: GENERAL: A 64-year-old obese white female in no obvious distress. She is now on room air. She is alert, follows basic commands without difficulty, is pleasant. EXTREMITIES: Functional range of motion of the upper extremity strength is grade 4- to 3+/5. In her lower extremities, she has proximal lower extremity weakness, a grade 3+ hip flexion and knee extension. Appears to be 3+ with hip extension. Distally, she is probably more of a 4-. DTRs upper and lower extremities are trace to 1. No obvious focal sensory decrease. Functionally, she has been mod assist with basic sit to stand and needs assistance for short distance walker ambulation. She is needing assistance with basic dressing activities. She is on a regular diet with all liquids. ASSESSMENT: A 64-year-old white female with the following problem list: 1. 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 2. Svsnk-uh-cxmpupy hypercapnic respiratory failure. 3. Multiple intubations with ENT following. 4. Ileus has resolved. She did have an NG tube previously that was removed. 5. Questionable reaction to AMOXICILLIN, requiring intubation. 6. History of aspiration pneumonia. 7. Electrolyte abnormalities. 8. Prolonged ICU stay. 9. Insulin-dependent diabetes mellitus. 10. Renal insufficiency. 11. Recent ventral hernia repair, 02/21/2019 12. Obesity. 13. Obstructive sleep apnea. PLAN: The patient has been admitted for acute in-hospital inpatient rehabilitation. From a postadmission physician evaluation perspective, there are no relevant changes since the preadmission screening. Please see the above review of prior and current medical and functional conditions and comorbidities. Please see the patient's previous and current functional status. As far as risk of complications, she does have the multiple medical comorbidities as noted above. The initial plan of care involves the interdisciplinary acute inpatient rehabilitation program. Measurable functional goals would be for her to become modified independent with transfers, mobility and ADLs, so she can return back to the home setting. Prognosis is reasonably good with estimated length of stay probably at least 5-10 days and likely longer as warranted. Potential barriers would include her multiple medical comorbidities and decreased functional status. The patient meets diagnostic criteria for an acute in-hospital inpatient rehabilitation stay. She meets the medical necessity criteria. She does have [facility] [address] [place] [address] HISTORY AND PHYSICAL Name: LAURA CROFT Room #: 501-A [facility] IN .R.#: [id number] Admission: 03/27/19 ������������������ Attend Phys: Joselo Mcnamara MD Discharge: ������������������ Date of : 53 Report #: [id number] the tolerance for therapies and has appropriate discharge goals back to the home setting. ��������������������������������������������� <ELECTRONICALLY SIGNED> ���������������������������������������� By: Joselo Mcnamara MD ��������������������������������������������� 04/04/19 1635 1444 1529 Joselo Mcnamara MD /nt
--- NOTE | 2019-04-04 16:41 | PLAN ---
[facility] [address] [address] [place] [address] REHAB UNIT PLAN OF CARE Name: LAURA CROFT Room #: 501-A ADM IN ..#: [id number] Admission: 03/27/19 ������������������ Attend Phys: Joselo Mcnamara MD Discharge: ������������������ Date of : 53 Report #: [id number] THIS REPORT FOR: //name// CC: Marcus VILLAGOMEZ DATE OF SERVICE: 03/29/2019 PROGRESS NOTE/OVERALL PLAN OF CARE SUBJECTIVE: The patient was seen earlier with vague complaints of dizziness, some nausea, loose stools, was tachycardic when up in the bathroom. I did check an EKG, which was negative. Labs include a low potassium, which is being supplemented. Agree with GI consultation. Troponin was pending and I am deferring return to therapies as per Internal Medicine. She did miss some therapies this morning with her symptomatology. ASSESSMENT: 1. Critical illness myopathy. 2. Respiratory failure with extubation x 2. 3. Recent ventral hernia repair. 4. Diabetes mellitus. 5. Obesity. 6. Obstructive sleep apnea. 7. Degenerative arthritis. PLAN: Please see the Internal Medicine nurse practitioner documentation as well as my noted above. She did miss some therapies this morning and will hopefully be cleared for return back to his therapies. The overall plan of care is based on the preadmission screen, post-admission physician evaluation and information garnered from therapy assessments. 1. Estimated length of stay is probably at least 7-14 days pending progress. 2. Medical prognosis is reasonably good. 3. Anticipated interventions includes the interdisciplinary acute inpatient rehabilitation program. 4. Anticipated functional outcomes would be for the patient to become modified independent with transfers, mobility and ADLs, so she can return back to the home setting. 5. Discharge destination would be back to the home setting where she lives with her adult son. 6. Expected therapy by discipline includes PT and OT 1-1/2 hours per day each [facility] [address] [place] [address] REHAB UNIT PLAN OF CARE Name: LAURA CROFT Room #: 501-A [facility] IN [facility].#: [id number] Admission: 03/27/19 ������������������ Attend Phys: Joselo Mcnamara MD Discharge: ������������������ Date of : 53 Report #: [id number] five days a week throughout the duration of the acute inpatient rehabilitation stay. ��������������������������������������������� <ELECTRONICALLY SIGNED> ���������������������������������������� By: Joselo Mcnamara MD ��������������������������������������������� 04/04/19 1641 1114 1939 Joselo Mcnamara MD /nt
--- NOTE | 2019-04-04 18:15 | NUR ---
ASSUMED CARE OF PT AT 0715. PT IS A&OX4 AND VITAL SIGNS ARE STABLE. PT DENIED NAUSEA THIS SHIFT, BUT REPORTED PAIN, WHICH WAS MANAGED WITH PO MEDICAITONS. CONTINUES TO REPORT FEELING OF "THROAT TIGHTENING", REPORTED TO GI PROVIDER. PLANS FOR D/C TOMMORROW MORNING. GI PROVIDER ASKING THAT PT EAT SOFT FOODS UNTIL ENDOSCOPY COMPLETED. PT MOD I IN ROOM, FALL PRECAUTIONS IN PLACE AND NURSING WILL CONTINUE TO MONITOR.
[2019-04-04 20:10] VITALS: BP 157/68
--- NOTE | 2019-04-05 02:43 | NUR ---
PT ASSESSMENT DONE AND VSS. MEDS GIVEN ORDERED AND WELL TOLERATED. FALL PRECAUTIONS IN PLACE. SLEEPING WELL. WILL CONTINUE TO MONITOR.
[2019-04-05 05:48] LABS: HEMATOCRIT 32.1 % (37.0-47.0); HEMOGLOBIN 10.4 gm/dL (12.0-15.0); MCH 31.2 pg (26.0-34.0); MCHC 32.4 g/dL (28.0-37.0); MCV 96.2 fL (80.0-100.0); RBC 3.34 mil/uL (4.20-5.00); RDW 16.3 % (10.5-14.5); WBC 6.6 thou/uL (4.0-11.0)
[2019-04-05 06:00] LABS: CALCIUM 8.5 mg/dL (8.5-10.1); CREATININE 0.8 mg/dL (0.6-1.0)
[2019-04-05] MEDS ORDERED: TRAZODONE HCL50 MG PO (09:55)
[2019-04-05] MEDS ORDERED: PEPCID20 MG PO (09:55)
[2019-04-05] MEDS ORDERED: LASIX 40 MG TAB40 M1 PO (09:55)
[2019-04-05] MEDS ORDERED: K-DUR 20 MEQ T20 MEQ PO (09:55)
[2019-04-05] MEDS ORDERED: PREDNISONE 10 M10 M1 PO (10:00)
[2019-04-05 11:23] VITALS: BP 157/68
--- NOTE | 2019-04-05 11:48 | NUR ---
dc order to be faxed to [facility] [phone], # for [facility] [phone]. pt ot and nursing for .
[2019-04-05 11:53] VITALS: BP 157/68
--- NOTE | 2019-04-05 15:43 | NUR ---
ASSUMED CARE OF PT AT 0715. PT IS A&OX4 AND VITAL SIGNS ARE STABLE. PT MOD I IN ROOM. ORDERS OBTAINED FOR D/C TODAY. D/C RX SCRIPTS TAKEN TO OUTPATIENT PHARMACY, D/C EDUCAITONS COMPLETED WITH PT AND DISCHARGE INFORMATIONS DISCUSSED. PT COMMUNCATED THAT SHE HAS NO QUESTIONS OR CONCERNS. D/C PAPERWORK SIGNED, BELONGINGS REMOVED FROM ROOM. PT TRANSFERED IN W/C TO MEDICAL MALL BY NURSING STAFF WHERE PT OBTIANED MEDICATIONS FROM OUTPATIENT PHARMACY, AND WAS THEN TRANSPORTED TO ENTRANCE AND ASSISTED INTO [employer] VEHICLE AT 1240.
== END 2019-04-05 12:39 | disposition home health service (06) | DRG 91 ==
PROVIDERS: Nurse Practitioner Adult Health; Nurse Practitioner Family; ADMIT Physical Medicine & Rehabilitation
DX: G72.81 Critical illness myopathy (principal); J96.21 Acute and chronic respiratory failure with hypoxia; J96.22 Acute and chronic respiratory failure with hypercapnia; J69.0 Pneumonitis due to inhalation of food and vomit; J98.11 Atelectasis; N17.9 Acute kidney failure, unspecified; K56.7 Ileus, unspecified; E66.01 Morbid (severe) obesity due to excess calories; Z68.39 Body mass index [BMI] 39.0-39.9, adult; M19.90 Unspecified osteoarthritis, unspecified site; I10 Essential (primary) hypertension; F32.9 Major depressive disorder, single episode, unspecified; G47.33 Obstructive sleep apnea (adult) (pediatric); R53.81 Other malaise; J22 Unspecified acute lower respiratory infection; E11.9 Type 2 diabetes mellitus without complications; K21.9 Gastro-esophageal reflux disease without esophagitis; R00.0 Tachycardia, unspecified; D64.9 Anemia, unspecified; R13.10 Dysphagia, unspecified; Z87.01 Personal history of pneumonia (recurrent); Z85.43 Personal history of malignant neoplasm of ovary; Z90.710 Acquired absence of both cervix and uterus; Z90.49 Acquired absence of other specified parts of digestive tract; Z92.21 Personal history of antineoplastic chemotherapy; Z88.8 Allergy status to other drugs, medicaments and biological substances; Z88.1 Allergy status to other antibiotic agents
CPT/HCPCS: 10112

== ENCOUNTER → 2019-04-19 | Outpatient (CLI) | payer OTHER ==
[~2019-04-19] VITALS: Ht 170.2 cm; Wt 108.9 kg
[~2019-04-19] MED LIST changes: +AMLODIPINE BESY10 MG PO; +ENOXAPARIN40 MG/0.1 SUBQ; +FLEXERIL PO; +FLONASE 0.05%50 MCG NASAL; +GLUCOPHAGE XR750 MG PO; +HYDROCODON-ACE1 EAC7 PO; +IPRAT-ALBUT 0.5-3 ML INH; +K-DUR 20 MEQ T20 MEQ PO; +LASIX 40 MG TAB40 M1 PO; +LEVAQUIN 500 M50012 PO; +LYRICA100 MG PO; +PREDNISONE 10 M10 M1 PO; +PREDNISONE 20 M20 MG PO; +PROTONIX40 M1 PO; +TRAZODONE HCL50 MG PO
--- NOTE | 2019-04-22 16:06 | PATH ---
[facility] [address] [place] [address] PATHOLOGY RPT PROCEDURE Name: LAURA CROFT Room #: REG JONES Beth.#: [id number] Admission: 04/19/19 Date of : 53 Discharge: Report #: [id number] Path Case #: [id number] [facility] Accession Number: [id number] . 01 Material submitted: . stomach - GASTRIC BX . 01 Clinical history: . Pre-OP DX: Dysphagia, nausea Post-OP DX: Gastritis, grade B erosive esophagitis, hiatal hernia . 02 Diagnosis: Gastric mucosa, gastric, rule out H. pylori, endoscopic biopsy: - Mild chronic inflammation. - Negative for intestinal metaplasia or atrophy. - Negative for Helicobacter pylori (properly controlled immunohistochemical stain performed. (IUV:pit; 04/22/2019) . QTP 04/22/2019 1211 Local . 02 Electronically signed: . Lavern Gorman MD, Pathologist NPI- [id number] . 01 Gross description: . Received in formalin labeled "Laura Croft, gastric BX, rule out H. pylori," are 4 segments of garcia soft tissue measuring 1.3 x 1.2 x 0.4 cm in aggregate dimensions and ranging from 0.4 to 0.6 cm in maximum dimension. The specimen is submitted entirely in cassette A1. (TSD; 04/19/2019) TOB/TOB 04/19/2019 1622 Local . 02 Pathologist provided ICD-10: K29.50 . 02 CPT . 375075, T06640 Specimen Comment: A courtesy copy of this report has been sent to Specimen Comment: [phone], . Specimen Comment: Report sent to / DR MARTIN Performed at: [address] [id number] MD Gokul Rodríguez MD Phone: [phone] Performed at: [address] [address] PATHOLOGY RPT PROCEDURE Name: LAURA CROFT Room #: REG JONES Guy#: [id number] Admission: 04/19/19 Date of : 53 Discharge: Report #: [id number] Path Case #: [id number] [address] [place] [address] [id number] MD Lavern Gorman MD Phone: [phone]
--- NOTE | 2019-04-24 10:34 | P ---
[facility] [address] [place] [address] PROCEDURE REPORT Name: LAURA CROFT Room #: REG JONES Beth.#: [id number] Admission: 04/19/19 Attend Phys: Huy Levy Discharge: Date of : 53 Report #: [id number] THIS REPORT FOR: //name// CC: Marcus Nagy PROCEDURE PERFORMED: Upper endoscopy with biopsies and esophageal dilation. HISTORY OF PRESENT ILLNESS: The patient is a 64-year-old female with a recent hospitalization following ventral hernia repair in which she had nausea, vomiting, aspiration pneumonia requiring intubation. At that time she had a CT scan showing a distended fluid-filled stomach as well as possible ileus and small-bowel obstruction. This has now resolved. She is doing well. She does have a history of gastroesophageal reflux disease, is on Pepcid, possibly on PPI therapy. She does complain of dysphagia. No previous history of upper endoscopy. She also complains of nausea. Plan is for EGD today. DESCRIPTION OF PROCEDURE: The risks and benefits of the procedure were explained to the patient, those risks including but not limited to bleeding, perforation, the risk of sedation. She understood these risks and gave informed consent. Sedation was given using propofol per anesthesia. Next, using a standard Olympus upper endoscope, the scope was placed in the patient's mouth and advanced under direct vision through the esophagus, stomach and into the second portion of the duodenum. Larynx normal in appearance. The upper and mid esophagus was normal in appearance. At the GE junction, grade B erosive esophagitis was noted. No evidence of stricture. Upon entering the stomach, a small hiatal hernia was noted. Overall, the gastric mucosa was normal in the fundus and upper body, mild gastritis was noted in the antrum. Biopsies were obtained to rule out H. pylori. No evidence of ulcerations or erosions. The pylorus was normal and patent. The duodenal bulb and first portion were normal. A large duodenal diverticulum was noted in the second portion of the duodenum, otherwise normal duodenal mucosa. The scope was then brought back up into the patient's stomach and a Savary guidewire was inserted through the scope, leaving the guidewire in place as the scope was then withdrawn. Next, a 51-Israeli Savary dilation of the esophagus was performed without difficulty. The wire and dilator removed. The scope was reintroduced into the patient's stomach. There was no evidence of mucosal tear after dilation. Scope was then withdrawn and the procedure terminated. The patient tolerated the procedure well. IMPRESSION: 1. Grade B erosive esophagitis. 2. Small hiatal hernia. 3. Mild gastritis. 4. Duodenal diverticulum. RECOMMENDATIONS: [address] [address] PROCEDURE REPORT Name: LANGLAURA Room #: REG JONES Guy#: [id number] Admission: 04/19/19 Attend Phys: Huy Levy Discharge: Date of : 53 Report #: [id number] 1. Await biopsy results. 2. Observe the patient status post dilation. 3. We will clarify if the patient is on PPI therapy. If may need to consider b.i.d. therapy, may need to consider Carafate. Thank you for allowing me to participate in her care. <ELECTRONICALLY SIGNED> By: Huy Nagy MD 04/24/19 1034 0927 1917 Huy Nagy MD /nt
== END | disposition home or self-care (01) ==
LOC: GI 07:40
DX: K29.50 Unspecified chronic gastritis without bleeding (principal); K21.9 Gastro-esophageal reflux disease without esophagitis; K44.9 Diaphragmatic hernia without obstruction or gangrene; K31.89 Other diseases of stomach and duodenum; K20.8 Other esophagitis; Z79.899 Other long term (current) drug therapy; Z98.890 Other specified postprocedural states
CPT/HCPCS: 62110; 62900